=== PATIENT | male | born 1950 | race Two or more races ===

== ENCOUNTER → 2019-12-08 08:02 | Outpatient (BNV) | payer OTHER, SELFPAY | PROVIDERS: PCP Internal Medicine; Visit Provider Internal Medicine | DX: C20 Malignant neoplasm of rectum (principal); C78.7 Secondary malignant neoplasm of liver and intrahepatic bile duct; M25.551 Pain in right hip | CPT/HCPCS: 99212; 99213; 99214; G2211 ==

== ENCOUNTER 2020-08-02 11:34 | Outpatient (REF) | payer MEDICARE, SELFPAY ==
--- NOTE | ~2020-08-02 | XR_ITS ---
EXAMINATION: XR ABDOMEN KUB CLINICAL INDICATION: Left flank pain. COMPARISON: None TECHNIQUE: AP view of the abdomen. FINDINGS: There is scattered stool and gas in the colon without distention. There is no organomegaly. No radiopaque calculi seen overlying the kidneys and bladder. There are several phleboliths in the pelvis. There is mild degenerative spondylosis at L4-L5 disc level. No visible acute fracture or dislocation seen. XR/XR KUB IMPRESSION: Mild constipation. No acute process seen.
== END 2020-08-02 11:35 | disposition home or self-care (01) ==
LOC: HO.XRAY 11:34
PROVIDERS: PCP Internal Medicine; Visit Provider Internal Medicine
DX: R10.9 Unspecified abdominal pain (principal)
CPT/HCPCS: 74018

== ENCOUNTER 2020-10-10 09:52 | Outpatient (REF) | payer MEDICARE, SELFPAY ==
--- NOTE | ~2020-10-10 | CT_ITS ---
EXAMINATION: CT CHEST WITH CONTRAST CT ABDOMEN AND PELVIS WITH CONTRAST CLINICAL INFORMATION: Rectal cancer with metastatic disease to the liver. COMPARISON: CT chest, abdomen and pelvis 09/22/2019. TECHNIQUE: 5 mm thin axial and reformatted 2 mm thin sagittal and coronal images of the chest, abdomen and pelvis were obtained following 100 mL Omnipaque 350. DLP: 1370 mGy-cm FINDINGS: CHEST: The lungs are well expanded without acute pneumonic process. There is a 2 mm nodule along the right minor fissure and the right middle lobe (axial image 349/7), a ground-glass attenuation 4 mm nodule in the left lower lobe (image 445/7), a 2 mm peripheral-based nodule in the right middle lobe (axial image 441/7), a 2 mm nodule in the right lower lobe laterally (image 476/7) and focal atelectatic changes laterally in the lingula. A 1 mm calcified nodule is seen in the right lower lobe posteriorly (axial image 400/7) and a noncalcified 2 mm nodule in the right lower lobe medially (axial image 398/7). The thyroid lobes are symmetrical and normal except for mild heterogeneity in the right lobe, likely small nodules. The central trachea and the bronchi are widely patent. Heart size and the great vessels are normal caliber. There are coronary artery calcifications. No pericardial effusion is seen. A right central venous port tip is in the mid SVC with the hardware along the right anterior chest wall. There is no pleural effusion, thickening or calcifications. The axillae and chest wall appear unremarkable. ABDOMEN AND PELVIS: The liver is mildly attenuated without enlargement. There are several hypodense lesions; a 1.4 cm lesion at the junction of the right hepatic lobe and medial segment left lobe (axial image 13/3), a small hypodense 6 mm lesion along the ligamentum teres on axial image 17/3 which could be focal fatty deposition. Otherwise, no change from the previous exam. There are no radiopaque gallstones or wall thickening. No intrahepatic or extrahepatic ductal dilatation is seen. The visualized spleen, pancreas and adrenal glands are unremarkable. There are normal bilateral symmetrical nephrograms with some punctate nonenhancing probable tiny cysts. No hydronephrosis or radiopaque calculi are seen. The abdominal aorta is of normal caliber. No retroperitoneal lymph nodes or mass is seen. There is scattered stool and gas seen throughout the colon. There is no colonic distention. There is an anastomotic suture line at the rectosigmoid junction with patent lumen. Scattered sigmoid and rest of the colon diverticula but no evidence of diverticulitis. Nonspecific mild thickening of the sigmoid colon is seen with no pericolic fat stranding. The small bowel loops are unremarkable. The appendix is not seen with certainty. The abdominal wall is unremarkable. Imaging through the pelvis reveals an unremarkable urinary bladder. There is no free fluid. No abnormal pelvic or inguinal lymph nodes. No evidence of hernia. Bone windows reveal no lytic or sclerotic process. CT/CT abdomen pelvis w con IMPRESSION: No significant change in the ground-glass attenuation nodule in the left lower lobe. Multiple small 1-2 mm nodules as described above. Mild coronary artery calcifications. Small liver lesions are essentially stable. I do not see any new lesions. Mild attenuation of the liver is stable. No hepatomegaly. No abnormal retroperitoneal or pelvic lymph nodes are seen. Scattered sigmoid and rest of the colon diverticulosis.
--- NOTE | ~2020-10-10 | CT_ITS ---
EXAMINATION: CT SOFT TISSUE NECK WITH CONTRAST CLINICAL INFORMATION: Swelling COMPARISON: None TECHNIQUE: Following the intravenous administration of 100 mL of Omnipaque 350 intravenous contrast, helical imaging was performed in the axial plane with generation of coronal and sagittal reformatted images. This CT examination was performed using dose optimization techniques as appropriate, variously including the following: *Automated exposure control *Adjustment of mA and/or kV according to patient size (this includes techniques or standardized protocols for targeted exams where dose is matched to indication/reason for exam; i.e. extremities or head) *Use of iterative reconstruction technique DLP: 1370 mGy-cm FINDINGS: There are small shotty lymph nodes seen in the anterior neck largest left carotid space lymph node measures 1.0 x 0.7 cm, axial image 62/3. The parotid glands are homogeneous in attenuation. The submandibular glands are normal. No contour abnormality or pathologic enhancement is seen within the oral cavity or pharyngeal mucosal space. There is mild asymmetric thickening of left pharyngeal wall with slight hypodensity, likely fatty deposition, on axial image 59 through 64/3. The laryngeal structures are normal. The parapharyngeal fat is preserved. The carotid sheath vasculature opacify normally. No extra mucosal soft tissue mass or fluid collection is seen. No retropharyngeal fluid collection is seen. There are punctate cysts or hypodense nodules in the right thyroid lobe. The superior mediastinum is unremarkable. The lung apices are clear. There is diffuse mucoperiosteal thickening bilateral maxillary and scanty right sphenoid sinuses. The drainage catheters are widely patent. Bilateral ethmoid, left sphenoid and bilateral frontal sinuses are well aerated. The temporomandibular joints are normal. No periapical disease is identified. No osseous abnormalities are seen. There is a punctate hypodensity in the right centrum semiovale likely a small lacunar infarct. It is best visualized on axial image 1/3. Normal intravascular enhancement seen intracranially. CT/CT soft tissue neck w con IMPRESSION: Mild asymmetric left lateral pharyngeal wall thickening with hypodensity. ?Edema, small serous collection or nodule. No mass effect. Airway is widely patent. Benign lymph nodes in the neck. Hypodense nodule right thyroid lobe likely cyst or nodule. Bilateral chronic maxillary and right sphenoid sinus inflammatory changes.
[2020-10-10] MEDS: iohexoL 350 MG/ML 100 ML INFUS..BTL IV (12:46)
== END 2020-10-10 09:53 | disposition home or self-care (01) ==
LOC: HO.CT 09:52
PROVIDERS: Visit Provider Internal Medicine
DX: C20 Malignant neoplasm of rectum (principal); C78.7 Secondary malignant neoplasm of liver and intrahepatic bile duct; R22.1 Localized swelling, mass and lump, neck
CPT/HCPCS: 70491; 71260; 74177; Q9967

== ENCOUNTER 2021-01-13 11:34 | Emergency (ER) | payer MEDICARE, SELFPAY ==
--- NOTE | ~2021-01-13 | CT_ITS ---
EXAMINATION: CT CHEST WITH CONTRAST CLINICAL INFORMATION: Neck swelling and pain. COMPARISON: CT chest dated from 10/10/2020. TECHNIQUE: Multidetector volumetric CT imaging of the chest was obtained after the administration of 100 mL of Omnipaque 350 intravenous contrast without immediate adverse reactions. Axial MIP volume rendering provided. Sagittal and coronal reformatted images were obtained. This CT examination was performed using dose optimization techniques as appropriate, variously including the following: *Automated exposure control *Adjustment of mA and/or kV according to patient size (this includes techniques or standardized protocols for targeted exams where dose is matched to indication/reason for exam; i.e. extremities or head) *Use of iterative reconstruction technique DLP: 412 mGy-cm FINDINGS: LUNGS: A 5 mm groundglass attenuating nodule in the left lower lobe (11: 3:30) is unchanged. A few other micronodules are also unchanged, for example a 2 mm right apical nodule (11:131), a 2 mm right upper lobe nodule (11:143) and a punctate nodule in the left upper lobe (11:151). No new pulmonary nodules. Mild biapical pleural thickening/scarring. Linear opacities dependently in the lower lobes are likely subsegmental atelectasis or parenchymal scarring. No focal airspace disease. The central airways are patent. MEDIASTINUM: Right-sided chest port terminating at the level of the cavoatrial junction. Normal heart size. Coronary calcifications and atherosclerotic disease of the thoracic aorta which is of normal diameter. No mediastinal or hilar lymphadenopathy. Normal appearance of the thyroid gland. PLEURA: There is no pleural effusion. No pleural mass or thickening. AXILLA: No lymphadenopathy. UPPER ABDOMEN: Redemonstration of several hepatic lesions including a 1.8 cm ill-defined hypoattenuating lesion in the right hepatic lobe (previously measuring 1.4 cm), a heterogeneous lesion with a central hyperattenuating component in the hepatic dome measuring approximately 2.3 cm (image 51 of series 9) previously 2.1 cm; and an adjacent hypodense and ill-defined lesion measuring approximately 2.1 cm (previously 1.6 cm). OSSEOUS STRUCTURES: No acute or aggressive osseous abnormalities. Low thoracic spondylosis. CT/CT chest w con IMPRESSION: 1. A 5 mm groundglass nodule in the left lower lobe is unchanged. A few other up to 2 mm pulmonary nodules are also stable. If history of prior cancer, follow-up per clinical guidelines with a short-term follow-up. 2. Ill-defined liver lesions are increased in size since October. These are indeterminate and differentials are brought including metastatic disease or abscesses. Correlate clinically. This result was discussed with Akanksha Arce APRN at 01/13/2021 5:50 PM and it was ascertained that the content and urgency of the report was understood at the time of direct communication.
--- NOTE | ~2021-01-13 | CT_ITS ---
EXAMINATION: CT SOFT TISSUE NECK WITH CONTRAST CLINICAL INFORMATION: Right-sided neck swelling and pain. COMPARISON: CT soft tissues of neck 10/10/2020 TECHNIQUE: Following the intravenous administration of 100 mL of Omnipaque 350 intravenous contrast, helical imaging was performed in the axial plane with generation of coronal and sagittal reformatted images. This CT examination was performed using dose optimization techniques as appropriate, variously including the following: *Automated exposure control *Adjustment of mA and/or kV according to patient size (this includes techniques or standardized protocols for targeted exams where dose is matched to indication/reason for exam; i.e. extremities or head) *Use of iterative reconstruction technique DLP: 825 mGy-cm FINDINGS: No cervical adenopathy is identified. The parotid glands are homogeneous in attenuation. The submandibular glands are normal. No contour abnormality or pathologic enhancement is seen within the oral cavity or pharyngeal mucosal space. The laryngeal structures are normal. The parapharyngeal fat is preserved. The carotid sheath vasculature opacify normally. No extra mucosal soft tissue mass or fluid collection is seen. No retropharyngeal fluid collection is seen. The thyroid gland is normal. . There is lobular mucosal thickening partially opacifying the inferior right maxillary sinus and right sphenoid sinus. Small polyp or retention cyst at the medial and inferior wall the left maxillary sinus. Mastoid air cells and middle ear cavities are normally aerated. The temporomandibular joints are normal. . Mild degenerative spondylosis of cervical spine. No acute osseous abnormality.. The imaged portions of the brain parenchyma are unremarkable. Right IJ catheter tip in superior vena cava. Lung apices normally aerated. CT/CT soft tissue neck w con IMPRESSION: 1. No acute abdomen only CT of neck. No focal fluid collection. No mass or significant lymphadenopathy. 2. Sinus mucosal disease in the right maxillary sinus and sphenoid sinus. Retention cyst or polyp in left maxillary sinus. 3. Right IJ catheter tip in superior vena cava.
[2021-01-13 11:37] VITALS: BP 152/99; PULSE 61; RESP 19; TEMP 36.6; O2SAT 99; BMI 29.2
--- NOTE | 2021-01-13 11:47 | ED.GENADULT ---
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 More swelling/pain if patient does activity such as heavy lifting or with leaning forward. No shortness of breath, difficulty swallowing or breathing. No sore throat or hoarse voice. He has history of hypertension, hyperlipidemia, depression, diabetes, GERD, rectal adenocarcinoma status post resection, on oral chemotherapy, chronic pain on oxycodone, right port DCT on xarelto 20mg daily. Of note the patient had similar complaints in October of [address] chest/neck which showed stable disease with no recurrence or new disease and mild pharyngeal edema but no mass or any other acute finding. Sent from Dr Cage office for CT chest/neck with IV contrast. Related Data Home Medications Medication Instructions Recorded Confirmed lisinopril 20 mg tablet 20 mg PO BID 12/08/19 01/13/21 Previous Rx's Medication Instructions Recorded metoprolol succinate 50 mg 50 mg PO DAILY #90 tab 05/17/20 tablet,extended release 24 hr insulin aspart U-100 100 unit/mL 10 unit (0.1 mL) SUBCUT TID #15 ml 06/16/20 (3 mL) subcutaneous pen (Novolog Flexpen U-100 Insulin aspart) clotrimazole-betamethasone 1 1 appl TOPICAL BID #45 g 10/14/20 %-0.05 % topical cream diphenhydramine HCl 25 mg tablet 25 mg PO DAILY PRN #50 tab 10/31/20 (Banophen) tramadol 50 mg tablet 50 mg PO BEDTIME PRN #30 tab 10/31/20 insulin glargine 100 unit/mL (3 25 unit (0.25 mL) SUBCUT BEDTIME 11/03/20 mL) subcutaneous pen (Lantus #24 ml Solostar U-100 Insulin) rivaroxaban 20 mg tablet (Xarelto) 10 mg PO DAILY #30 tab 11/18/20 blood sugar diagnostic (FreeStyle #100 ea 12/08/20 Lite Strips) blood-glucose meter (FreeStyle #1 ea 12/08/20 Lite Meter) lancets 28 gauge (FreeStyle #100 ea 12/08/20 Lancets) oxycodone 5 mg tablet 5 mg PO BID PRN #30 tab 12/22/20 temazepam 15 mg capsule 1 cap PO BEDTIME #30 cap 12/22/20 capecitabine 500 mg tablet (Xeloda) 1,500 mg PO BID #84 tab 12/23/20 Allergies Allergy/AdvReac Type Severity Reaction Status Date / Time chlorhexidine [CHLORHEXIDINE] Allergy Intermediate RASH,HIVES Verified 01/13/21 10:55 latex Allergy Unknown Verified 01/13/21 10:55 madical tape AdvReac Severe rash Uncoded 01/13/21 10:55 Review of Systems Review of Systems: Yes all other systems are reviewed and are negative Constitutional: Constitutional: Reports no additional constitutional complaints, Denies body ache(s), Denies chills, Denies fever(s), Denies headache(s) and Denies weakness Eyes: Eyes: Reports no additional eye complaints and Denies change in vision ENT: Reports system reviewed and no additional complaints, except as documented, Denies dizziness, Denies headache(s), Denies nasal congestion, Denies nasal discharge and Denies neck pain Cardiovascular: Cardiovascular: Reports no additional cardiovascular complaints, Denies chest pain, Denies leg edema and Denies dyspnea Respiratory: Respiratory: Reports no additional respiratory complaints, Denies cough and Denies dyspnea Gastrointestinal: Gastrointestinal: Reports no additional gastrointestinal complaints, Denies abdominal pain, Denies diarrhea, Denies nausea and Denies vomiting Genitourinary: Genitourinary: Denies urinary incontinence Musculoskeletal: Musculoskeletal: Reports no additional musculoskeletal complaints, Denies back pain, Denies arthralgias, Denies joint swelling, Denies neck pain, Denies numbness and Denies tingling Integumentary/Breasts: Skin/Breast: Reports system reviewed and no additional complaints, except as docu and Denies rash Neurologic: Denies Abnormal speech present, Denies dizziness, Denies headache(s), Denies numbness, Denies tingling and Denies weakness PMFSH Past Medical History Attestation statement: The following information was validated with the patient. 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 Mother Mouth cancer Sister Breast cancer Social History Social History Housing: Apartment Alcohol intake: current Alcohol intake frequency: a few times a week Alcohol type: beer Patient Tobacco Use Status: Never used Tobacco Advance Directives: No Advance Directives Information Provided: No service: No Current occupational status: disabled Physical Exam Vital Signs: Vital Signs: Last Vital Signs Temp 98.2 F 01/13/21 18:00 Pulse 56 01/13/21 18:00 Resp 14 01/13/21 18:00 BP 158/90 H 01/13/21 18:00 Pulse Ox 98 01/13/21 18:00 Body Mass Index 29.2 Const: General: cooperative, healthy appearing, comfortable and no acute distress Orientation/consciousness: patient oriented x3 Limitations: no limitations HENMT: Head: Yes normal to inspection Ears: hearing grossly normal bilaterally and TM's normal bilaterally General nose exam: Normal external nose present Face and sinus: Yes normal facial exam Mouth: Normal oral and palatal mucosa present Throat: Yes posterior oropharynx normal Eyes: General: appearance normal, both eyes and all related structures Pupils: Equal, round and reactive pupils present Neck: Other: Right-sided soft tissue neck swelling with no tenderness. Full range of motion of neck. No meningeal signs or lymphadenopathy Neck: Yes normal visual inspection Neck images: 1. Mild swelling with no tenderness 2. Mild swelling with no tenderness. No thrill or bruit Chest: Chest palpation & inspection: normal inspection of the chest Chest/axillae images: 1. Mild swelling with no tenderness Distal axillary, radial and ulnar pulses palpated Resp: Effort & Inspection: normal respiratory effort Auscultation: clear to auscultation bilaterally Cardio: Rate: regular rate Rhythm: regular rhythm Peripheral pulses: Peripheral pulses 2+ throughout GI: Inspection: Yes normal to inspection Palpation (GI): Soft to palpation and nontender Auscultation: normal bowel sounds Back/Spine/Pelvis: Thoracic/Lumbar Spine: thoracic and lumbar spine normal to inspection Skin: General skin exam: no rashes or lesions noted Neuro: General: patient oriented x3, no focal motor deficits and normal sensation to monofilament Cranial nerves: Yes Equal, round and reactive pupils present Cognition (Neuro): normal cognition Speech: No Abnormal speech present Gait exam (Neuro): Normal gait present Motor exam (neuro): 5/5 motor strength present throughout Extrem: General: Yes normal to inspection, Yes no pedal edema and Yes no calf tenderness Course Course Course Narrative: 1200-I spoke to Dr Cage myself. She tells me she is concerned for SVC syndrome and would like the patient to have a CT chest/CT neck with IV contrast. 70-year-old male here with worsening right neck/axillary swelling over the last 2 weeks. Sent to r/o SVC syndrome. Currently on xarelto, oral chemotherapy. 1819-CT scan at chest and neck show 1.? A 5 mm groundglass nodule in the left lower lobe is unchanged. A few other up to 2 mm pulmonary nodules are also stable. If history of prior cancer, follow-up per clinical guidelines with a short-term follow-up. ? 2.? Ill-defined liver lesions are increased in size since October. These are indeterminate and differentials are brought including metastatic disease or abscesses. Correlate clinically. 1. No acute abdomen only CT of neck. No focal fluid collection. No mass or significant lymphadenopathy. 2. Sinus mucosal disease in the right maxillary sinus and sphenoid sinus. Retention cyst or polyp in left maxillary sinus. 3. Right IJ catheter tip in superior vena cava. ? No evidence of SVC syndrome. I spoke to Dr. Sebastian from radiology. The patient's oncologist was updated. Plan for discharge home. Reviewed worrisome signs and symptoms. Comfortable plan for discharge home Patient was informed of liver lesions and pulmonary nodule. Medical Decision Making Medical Records Medical records reviewed: Yes I reviewed the patient's medical records. Lab Data Lab results reviewed: Yes I reviewed the patient's lab results. Result diagrams: 01/13/21 13:26 01/13/21 16:03 Labs: Lab Results 01/13/21 01/13/21 01/13/21 Range/Units 13:26 13:26 15:43 WBC 6.6 (4.8-10.8) X10*3/uL RBC 4.72 (4.60-5.80) X10*6/uL Hgb 17.1 (14.0-18.0) g/dl Hct 49.4 (42.0-52.0) % MCV 104.7 H (80.0-98.0) fL MCH 36.2 H (27.0-33.0) pg MCHC 34.6 (31.0-36.0) g/dl RDW 12.7 (11.0-16.0) % Plt Count 202 (160-400) X10*3/uL MPV 9.3 L (9.4-12.4) fL Immature Gran % (Auto) 0.3 (0.0-0.4) % Neut % (Auto) 63.8 (45-73) % Lymph % (Auto) 19.5 L (20-40) % [place] % (Auto) 7.9 (2-11) % Eos % (Auto) 7.1 H (0-4) % Baso % (Auto) 1.4 (0-2) % Lymph # (Auto) 1.3 (1.2-4.9) X10*3/uL [place] # (Auto) 0.5 (0.1-1.2) X10*3/uL Eos # (Auto) 0.5 H (0.0-0.4) X10*3/uL Baso # (Auto) 0.1 (0.0-0.2) X10*3/uL Abs Immat Gran (auto) 0.02 (0.00-0.03) X10*3/uL Absolute Neuts (auto) 4.2 (2.0-8.3) x10*3/uL Absolute Nucleated RBC 0.000 (0.0-0.012) X10*3/uL Nucleated RBC % (auto) 0.0 (0.0-0.2) /100WBC PT 20.7 H (9.9-13.0) SEC INR 1.8 H (0.9-1.1) Sodium (135-145) mmol/L Potassium (3.3-5.1) mmol/L Chloride (96-108) mmol/L Carbon Dioxide (22-29) mmol/L Anion Gap (12-20) BUN (9-16) mg/dL Creatinine (0.5-1.4) mg/dL Estim Creat Clear Calc Estimated GFR POC Glucose 108 (60-115) mg/dL Random Glucose (60-115) mg/dL Calcium (8.4-10.2) mg/dL Total Bilirubin (0.0-1.0) mg/dL Direct Bilirubin (0.0-0.5) mg/dL AST (5-37) U/L ALT (0-40) U/L Alkaline Phosphatase (39-117) U/L Total Protein (6.5-8.0) g/dL Albumin (3.5-5.0) g/dL 01/13/21 Range/Units 16:03 WBC (4.8-10.8) X10*3/uL RBC (4.60-5.80) X10*6/uL Hgb (14.0-18.0) g/dl Hct (42.0-52.0) % MCV (80.0-98.0) fL MCH (27.0-33.0) pg MCHC (31.0-36.0) g/dl RDW (11.0-16.0) % Plt Count (160-400) X10*3/uL MPV (9.4-12.4) fL Immature Gran % (Auto) (0.0-0.4) % Neut % (Auto) (45-73) % Lymph % (Auto) (20-40) % [place] % (Auto) (2-11) % Eos % (Auto) (0-4) % Baso % (Auto) (0-2) % Lymph # (Auto) (1.2-4.9) X10*3/uL [place] # (Auto) (0.1-1.2) X10*3/uL Eos # (Auto) (0.0-0.4) X10*3/uL Baso # (Auto) (0.0-0.2) X10*3/uL Abs Immat Gran (auto) (0.00-0.03) X10*3/uL Absolute Neuts (auto) (2.0-8.3) x10*3/uL Absolute Nucleated RBC (0.0-0.012) X10*3/uL Nucleated RBC % (auto) (0.0-0.2) /100WBC PT (9.9-13.0) SEC INR (0.9-1.1) Sodium 137 (135-145) mmol/L Potassium 4.0 (3.3-5.1) mmol/L Chloride 103 (96-108) mmol/L Carbon Dioxide 28 (22-29) mmol/L Anion Gap 10 L (12-20) BUN 10 (9-16) mg/dL Creatinine 0.92 (0.5-1.4) mg/dL Estim Creat Clear Calc 77.3 Estimated GFR > 60 POC Glucose (60-115) mg/dL Random Glucose 126 H (60-115) mg/dL Calcium 8.6 (8.4-10.2) mg/dL Total Bilirubin 1.2 H (0.0-1.0) mg/dL Direct Bilirubin 0.3 (0.0-0.5) mg/dL AST 20 (5-37) U/L ALT 16 (0-40) U/L Alkaline Phosphatase 66 (39-117) U/L Total Protein 6.7 (6.5-8.0) g/dL Albumin 3.9 (3.5-5.0) g/dL Imaging Data ct neck: Attestation: I personally reviewed and interpreted this imaging study as follows: Radiologist's impression: 1. No acute abdomen only CT of neck. No focal fluid collection. No mass or significant lymphadenopathy. 2. Sinus mucosal disease in the right maxillary sinus and sphenoid sinus. Retention cyst or polyp in left maxillary sinus. 3. Right IJ catheter tip in superior vena cava. ? ct chest: Attestation: I personally reviewed and interpreted this imaging study as follows: Radiologist's impression: IMPRESSION: 1.? A 5 mm groundglass nodule in the left lower lobe is unchanged. A few other up to 2 mm pulmonary nodules are also stable. If history of prior cancer, follow-up per clinical guidelines with a short-term follow-up. ? 2.? Ill-defined liver lesions are increased in size since October. These are indeterminate and differentials are brought including metastatic disease or abscesses. Correlate clinically. ? Discharge Plan Discharge Clinical Impression: Acute neck pain Patient Disposition: Home, Self-Care Instructions: Chronic Neck Pain (DC) Additional Instructions: follow-up with your oncologist Your CT scan looks normal with the exception of a lung nodule and lesions on your liver Prescriptions: No Action insulin aspart U-100 [Novolog Flexpen U-100 Insulin] 100 unit/mL (3 mL) insulin pen 10 unit subcut TID Qty: 15 RF: 0 Lantus Solostar U-100 Insulin 100 unit/mL (3 mL) insulin pen 25 unit subcut BEDTIME Qty: 24 RF: 3 (DME) FreeStyle Lite Strips Strip See Rx Instructions .Route Qty: 100 RF: 3 (DME) blood-glucose meter [FreeStyle Lite Meter] Kit See Rx Instructions .Route Qty: 1 RF: 0 (DME) lancets [FreeStyle Lancets] 28 gauge misc See Rx Instructions .Route Qty: 100 RF: 3 lisinopril 20 mg Tablet 20 mg PO BID RF: 0 metoprolol succinate 50 mg Tablet Extended Release 24 Hr 50 mg PO DAILY Qty: 90 RF: 3 clotrimazole-betamethasone 1-0.05 % Cream 1 appl TOPICAL BID Qty: 45 RF: 4 tramadol 50 mg Tablet 50 mg PO BEDTIME PRN (Reason: Pain) Qty: 30 RF: 0 diphenhydramine HCl [Banophen] 25 mg Tablet 25 mg PO DAILY PRN (Reason: Insomnia) Qty: 50 RF: 4 Xarelto 20 mg Tablet 10 mg PO DAILY Qty: 30 RF: 0 oxycodone 5 mg Tablet 5 mg PO BID PRN (Reason: Pain) Qty: 30 RF: 0 temazepam 15 mg capsule 1 cap PO BEDTIME Qty: 30 RF: 0 capecitabine [Xeloda] 500 mg tablet 1,500 mg PO BID Qty: 84 RF: 0 Referrals: Lea Cage MD [Physician] - 2 days Interventions: ED Discharge Assessment Last Done: 01/13/21 18:31 Discharge Date/Time: 01/13/21 18:32 Print Language: Tajik
[2021-01-13] MEDS: 0.9 % Sodium Chloride 1,000 ML 50 ML IVCONT (13:27)
[2021-01-13 13:33] LABS: MANUAL DIFF FLAG NO
[2021-01-13 13:39] LABS: Basophils Absolute Auto 0.1 X10*3/uL (0.0-0.2); Basophils Percent Auto 1.4 % (0-2); Eosinophils Absolute Auto 0.5 X10*3/uL (0.0-0.4); Eosinophils Percent Auto 7.1 % (0-4); Hematocrit 49.4 % (42.0-52.0); Hemoglobin 17.1 g/dl (14.0-18.0); Imm Gran Abs Auto 0.02 X10*3/uL (0.00-0.03); Imm Gran Pct Auto 0.3 % (0.0-0.4); Lymphocytes Absolute Auto 1.3 X10*3/uL (1.2-4.9); Lymphocytes Percent Auto 19.5 % (20-40); Mean Corpuscular HGB Conc 34.6 g/dl (31.0-36.0); Mean Corpuscular Hemoglobin 36.2 pg (27.0-33.0); Mean Corpuscular Volume 104.7 fL (80.0-98.0); Mean Platelet Volume 9.3 fL (9.4-12.4); Monocytes Absolute Auto 0.5 X10*3/uL (0.1-1.2); Monocytes Percent Auto 7.9 % (2-11); Neutrophils Absolute Auto 4.2 x10*3/uL (2.0-8.3); Neutrophils Percent Auto 63.8 % (45-73); Platelet Count 202 X10*3/uL (160-400); Red Blood Count 4.72 X10*6/uL (4.60-5.80); Red Cell Distribution Width 12.7 % (11.0-16.0); White Blood Count 6.6 X10*3/uL (4.8-10.8)
[2021-01-13 13:42] LABS: INTERNATIONAL NORM RATIO 1.8 (0.9-1.1); Prothrombin Time 20.7 SEC (9.9-13.0)
[2021-01-13 14:00] VITALS: BP 141/79; PULSE 64; RESP 16; O2SAT 98
[2021-01-13 15:51] LABS: Glucose, Whole Blood 108 mg/dL (60-115)
[2021-01-13 16:00] VITALS: BP 153/86; PULSE 60; RESP 16; O2SAT 97
[2021-01-13 16:31] LABS: Alanine Aminotransferase 16 U/L (0-40); Albumin Level 3.9 g/dL (3.5-5.0); Alkaline Phosphatase 66 U/L (39-117); Anion Gap 10 (12-20); Aspartate Amino Transferase 20 U/L (5-37); Bilirubin Direct 0.3 mg/dL (0.0-0.5); Bilirubin Total 1.2 mg/dL (0.0-1.0); Blood Urea Nitrogen 10 mg/dL (9-16); Calcium 8.6 mg/dL (8.4-10.2); Carbon Dioxide 28 mmol/L (22-29); Chloride 103 mmol/L (96-108); Creatinine Clr Calc Pharmacy 77.3; Estimated Glomerular Filt Rate > 60; Glucose Random 126 mg/dL (60-115); Sodium 137 mmol/L (135-145); Total Protein 6.7 g/dL (6.5-8.0)
[2021-01-13] MEDS: iohexoL 350 MG/ML 100 ML INFUS..BTL IV (17:21)
[2021-01-13 18:00] VITALS: BP 158/90; PULSE 56; RESP 14; TEMP 36.8; O2SAT 98
== END 2021-01-13 18:32 | disposition home or self-care (01) ==
PROVIDERS: Nurse Practitioner Family; Emergency Provider Emergency Medicine Emergency Medical Services; PCP Internal Medicine
DX: M54.2 Cervicalgia (principal); I10 Essential (primary) hypertension; E11.9 Type 2 diabetes mellitus without complications; C20 Malignant neoplasm of rectum; G89.29 Other chronic pain; Z86.73 Personal history of transient ischemic attack (TIA), and cerebral infarction without residual deficits; Z79.01 Long term (current) use of anticoagulants; Z79.4 Long term (current) use of insulin; Z79.891 Long term (current) use of opiate analgesic; Z79.899 Other long term (current) drug therapy
CPT/HCPCS: 36415; 70491; 71260; 80048; 80076; 82947; 85025; 85610; 96360; 96361; 99284; 99285; Q9967

== ENCOUNTER 2021-02-27 14:26 | Outpatient (REF) | payer MEDICARE, SELFPAY ==
--- NOTE | ~2021-02-27 | FL_ITS ---
EXAMINATION: XR PORT INJECTION WITH RADIOLOGICAL SUPERVISION AND INTERPRETATION CLINICAL INFORMATION: Blood not aspirating. COMPARISON: None TECHNIQUE: Port injection. FINDINGS: A Hubner needle was left in place and appears in good position. Using sterile technique, the port was injected through the indwelling needle with a total of 10 mL of Omnipaque 300 contrast media. The port is seen to fill normally and flow is present pushing forward however, there was no flow of blood on aspiration. There is noted to be a fibrin sheath about the tip of the port catheter. The port was then instilled with Hep-Lock solution. FL/FL cva device check w fluoro IMPRESSION: Fibrin sheath at end of port catheter. Fluoroscopy time 0.5 minutes DAP: 0.479 Gy-cm2
== END 2021-02-27 14:27 | disposition home or self-care (01) ==
LOC: HO.XRAY 14:26
PROVIDERS: Visit Provider Internal Medicine
DX: C18.9 Malignant neoplasm of colon, unspecified (principal)
CPT/HCPCS: 36598

== ENCOUNTER 2021-05-10 08:30 | Outpatient (REF) | payer MEDICARE, SELFPAY ==
--- NOTE | ~2021-05-10 | CT_ITS ---
EXAMINATION: CT CHEST, ABDOMEN AND PELVIS WITH CONTRAST CLINICAL INFORMATION: Rectal cancer with hepatic metastatic disease, follow-up. COMPARISON: 01/13/[address] scan, CT scan of the chest, abdomen and pelvis dated 01/13/2021. TECHNIQUE: Multidetector volumetric imaging was performed of the chest, abdomen and pelvis following IV administration of 85 mL of Omnipaque 300 intravenous contrast. Sagittal and coronal reformatted images were obtained on the technologist's workstation. This CT examination was performed using dose optimization techniques as appropriate, variously including the following: *Automated exposure control *Adjustment of mA and/or kV according to patient size (this includes techniques or standardized protocols for targeted exams where dose is matched to indication/reason for exam; i.e. extremities or head) DLP: 504 mGy-cm FINDINGS: CHEST: LUNGS/PLEURA/AIRWAYS: Minimal biapical scarring is seen. A few scattered nodules are again seen without significant change. A sales representative womens health nodule anterolaterally in the left lower lobe measures 0.5 cm (image 339, series 7). A nodule/lymph node along the minor fissure on the right measures 0.3 cm (image 252, series 7). No significant new pulmonary nodules are seen. There are no pleural effusions. The airways are patent. MEDIASTINUM: The visualized thyroid gland is unremarkable. The thoracic aorta is unremarkable. Mild coronary artery calcifications. No pericardial effusion. CHEST LYMPH NODES: No mediastinal, hilar or axillary lymphadenopathy. SOFT TISSUES: Unremarkable. ABDOMEN/PELVIS: LIVER, GALLBLADDER, AND BILIARY TREE: An irregular lesion superiorly in segment 4A is again seen measuring 3.2 x 2.6 x 2.9 cm (previously 2.6 x 2.1 x 2.0 cm), image 11, series 3; image 44, series 4. A second, less well-defined lesion, anterior and superior to the first measures 2.3 x 2.0 x 1.3 cm (previously 1.8 x 1.7 x 1.5 cm), image 12, series 3; image 37, series 4. A third lesion inferolaterally in segment 6 measures 2.8 x 2.1 x 1.8 cm (previously 1.8 x 1.4 x 2.0 cm). PANCREAS: Unremarkable. SPLEEN: Unremarkable. ADRENAL GLANDS: Unremarkable. KIDNEYS AND URETERS: Small low-attenuation foci bilaterally are too small adequately characterize without significant change. No nephrolithiasis or hydronephrosis. BLADDER: Unremarkable. GASTROINTESTINAL TRACT: The stomach, small bowel and appendix are unremarkable. The colorectal anastomosis in the pelvis is intact without surrounding abnormality. The remainder the colon is unremarkable. LYMPH NODES: No lymphadenopathy. VASCULAR: Unremarkable. PELVIC VISCERA: Unremarkable. MUSCULOSKELETAL: Unremarkable. SOFT TISSUES: Small fat-containing left inguinal hernia without significant change. CT/CT chest w con IMPRESSION: 1. Mild interval increase in size of the hepatic lesions as detailed above consistent with mild interval progression of disease. No evidence for disease recurrence/progression in the remainder of the chest, abdomen and pelvis. CT follow-up is recommended as per protocol. 2. Several incidental findings detailed above without significant interval change.
--- NOTE | ~2021-05-10 | CT_ITS ---
EXAMINATION: CT CHEST, ABDOMEN AND PELVIS WITH CONTRAST CLINICAL INFORMATION: Rectal cancer with hepatic metastatic disease, follow-up. COMPARISON: 01/13/[address] scan, CT scan of the chest, abdomen and pelvis dated 01/13/2021. TECHNIQUE: Multidetector volumetric imaging was performed of the chest, abdomen and pelvis following IV administration of 85 mL of Omnipaque 300 intravenous contrast. Sagittal and coronal reformatted images were obtained on the technologist's workstation. This CT examination was performed using dose optimization techniques as appropriate, variously including the following: *Automated exposure control *Adjustment of mA and/or kV according to patient size (this includes techniques or standardized protocols for targeted exams where dose is matched to indication/reason for exam; i.e. extremities or head) DLP: 504 mGy-cm FINDINGS: CHEST: LUNGS/PLEURA/AIRWAYS: Minimal biapical scarring is seen. A few scattered nodules are again seen without significant change. A retail representative nodule anterolaterally in the left lower lobe measures 0.5 cm (image 339, series 7). A nodule/lymph node along the minor fissure on the right measures 0.3 cm (image 252, series 7). No significant new pulmonary nodules are seen. There are no pleural effusions. The airways are patent. MEDIASTINUM: The visualized thyroid gland is unremarkable. The thoracic aorta is unremarkable. Mild coronary artery calcifications. No pericardial effusion. CHEST LYMPH NODES: No mediastinal, hilar or axillary lymphadenopathy. SOFT TISSUES: Unremarkable. ABDOMEN/PELVIS: LIVER, GALLBLADDER, AND BILIARY TREE: An irregular lesion superiorly in segment 4A is again seen measuring 3.2 x 2.6 x 2.9 cm (previously 2.6 x 2.1 x 2.0 cm), image 11, series 3; image 44, series 4. A second, less well-defined lesion, anterior and superior to the first measures 2.3 x 2.0 x 1.3 cm (previously 1.8 x 1.7 x 1.5 cm), image 12, series 3; image 37, series 4. A third lesion inferolaterally in segment 6 measures 2.8 x 2.1 x 1.8 cm (previously 1.8 x 1.4 x 2.0 cm). PANCREAS: Unremarkable. SPLEEN: Unremarkable. ADRENAL GLANDS: Unremarkable. KIDNEYS AND URETERS: Small low-attenuation foci bilaterally are too small adequately characterize without significant change. No nephrolithiasis or hydronephrosis. BLADDER: Unremarkable. GASTROINTESTINAL TRACT: The stomach, small bowel and appendix are unremarkable. The colorectal anastomosis in the pelvis is intact without surrounding abnormality. The remainder the colon is unremarkable. LYMPH NODES: No lymphadenopathy. VASCULAR: Unremarkable. PELVIC VISCERA: Unremarkable. MUSCULOSKELETAL: Unremarkable. SOFT TISSUES: Small fat-containing left inguinal hernia without significant change. CT/CT abdomen pelvis w con IMPRESSION: 1. Mild interval increase in size of the hepatic lesions as detailed above consistent with mild interval progression of disease. No evidence for disease recurrence/progression in the remainder of the chest, abdomen and pelvis. CT follow-up is recommended as per protocol. 2. Several incidental findings detailed above without significant interval change.
[2021-05-10] MEDS: iohexoL 350 MG/ML 100 ML INFUS..BTL IV (09:38)
== END 2021-05-10 08:31 | disposition home or self-care (01) ==
LOC: HO.CT 08:30
PROVIDERS: Visit Provider Internal Medicine
DX: C20 Malignant neoplasm of rectum (principal); C78.7 Secondary malignant neoplasm of liver and intrahepatic bile duct
CPT/HCPCS: 71260; 74177; Q9967

== ENCOUNTER 2021-06-21 10:42 | Emergency (ER) | payer MEDICARE, SELFPAY ==
--- NOTE | ~2021-06-21 | XR_ITS ---
EXAMINATION: XR CHEST CLINICAL INFORMATION: Cough, chest pain. COMPARISON: 04/04/2018 chest radiographs. TECHNIQUE: Frontal view of the chest was obtained. FINDINGS: Support devices: Right-sided central venous port with tip terminating in the superior vena cava. No significant abnormality is noted involving the heart, lungs, mediastinum, bony thorax or soft tissues. XR/XR chest 1V IMPRESSION: No acute cardiopulmonary process.
--- NOTE | 2021-06-21 10:53 | ECG_ITS ---
Test Reason : sob Blood Pressure : / mmHG Vent. Rate : 068 BPM Atrial Rate : 068 BPM P-R Int : 136 ms QRS Dur : 094 ms QT Int : 410 ms P-R-T Axes : 079 065 081 degrees QTc Int : 435 ms Normal sinus rhythm Normal ECG When compared to the previous EKG of Vent. rate has decreased Referred By: Generic ED Physician Electronically Signed By:BRANDY DANG MD
[2021-06-21 10:54] VITALS: BP 117/61; PULSE 74; RESP 17; TEMP 36.4; O2SAT 97; BMI 26.0
--- NOTE | 2021-06-21 11:25 | ED_ITS ---
HPI - General Adult General Chief complaint: Dyspnea <LEIGH Diaz Last Filed: 06/21/21 12:51> Stated complaint: flu symptons hx of ca <LEIGH Diaz Last Filed: 06/21/21 12:51> Time Seen by Provider: 06/21/21 11:25 <LEIGH Diaz Last Filed: 06/21/21 12:51> Source: patient, family (son) and retirement assistant <LEIGH Diaz Last Filed: 06/21/21 12:51> Mode of arrival: ambulatory <LEIGH Diaz Last Filed: 06/21/21 12:51> Limitations: language barrier <LEIGH Diaz Last Filed: 06/21/21 12:51> History of Present Illness HPI narrative: Patient is a 71 year old male presenting to the emergency department today with a cough and feeling generally unwell. Patient's son states that the patient has a history of colon cancer and he is on chemo medication for it. Patient's son states that the patient was around multiple influenza positive individuals recently. Patient denies any dizziness, lightheadedness, abdominal pain, nausea, vomiting, fever, chills, blurry vision, double vision, loss of vision, chest pain, difficulty breathing, shortness of breath, back pain, night sweats, pain with urination, increased urinary frequency, increased urinary urgency, blood in his urine or stool, syncope or a near syncopal episode, recent trauma or falls, bowel incontinence, bladder incontinence, bowel retention, bladder retention, or any other complaints at this time. <LEIGH Diaz - Last Filed: 06/21/21 12:51> Onset (ago): day(s) <LEIGH Diaz Last Filed: 06/21/21 12:51> Relieving factors: none <LEIGH Diaz Last Filed: 06/21/21 12:51> Exacerbating factors: none <LEIGH Diaz Last Filed: 06/21/21 12:51> Associated symptoms: cough <LEIGH Diaz Last Filed: 06/21/21 12:51> Treatments prior to arrival: none <LEIGH Diaz Last Filed: 06/21/21 12:51> Related Data Home medications: Home Medications Medication Instructions Recorded Confirmed lisinopril 20 mg tablet 20 mg PO BID 12/08/19 05/22/21 Previous Rx's Medication Instructions Recorded metoprolol succinate 50 mg 50 mg PO DAILY #90 tab 05/17/20 tablet,extended release 24 hr insulin aspart U-100 100 unit/mL 10 unit (0.1 mL) SUBCUT TID #15 ml 06/16/20 (3 mL) subcutaneous pen (Novolog Flexpen U-100 Insulin aspart) clotrimazole-betamethasone 1 1 appl TOPICAL BID #45 g 10/14/20 %-0.05 % topical cream diphenhydramine HCl 25 mg tablet 25 mg PO DAILY PRN #50 tab 10/31/20 (Banophen) insulin glargine 100 unit/mL (3 25 unit (0.25 mL) SUBCUT BEDTIME 11/03/20 mL) subcutaneous pen (Lantus #24 ml Solostar U-100 Insulin) blood sugar diagnostic (FreeStyle #100 ea 12/08/20 Lite Strips) blood-glucose meter (FreeStyle #1 ea 12/08/20 Lite Meter) lancets 28 gauge (FreeStyle #100 ea 12/08/20 Lancets) rivaroxaban 10 mg tablet (Xarelto) 10 mg PO DAILY #90 tab 04/10/21 oxycodone 5 mg tablet 5 mg PO BID PRN #30 tab 04/14/21 tramadol 50 mg tablet 50 mg PO BEDTIME PRN #30 tab 04/14/21 temazepam 15 mg capsule 1 cap PO BEDTIME 30 Days #30 cap 04/19/21 omeprazole magnesium 10 mg oral 20 mg PO DAILY #30 ea 05/23/21 suspension,delayed release (Prilosec) omeprazole magnesium 20 mg 20 mg PO DAILY #30 tab 05/23/21 tablet,delayed release (Prilosec OTC) ondansetron 8 mg disintegrating 8 mg PO Q8H PRN #30 tab 05/23/21 tablet acetaminophen 325 mg-DM 10 mg/10 20 ml PO Q4H PRN #240 ml 06/13/21 mL oral liquid (Robitussin Cough-Sore Throat) <LEIGH Diaz - Last Filed: 06/21/21 12:51> Allergies/adverse reactions: Allergies Allergy/AdvReac Type Severity Reaction Status Date / Time chlorhexidine [CHLORHEXIDINE] Allergy Intermediate RASH,HIVES Verified 06/21/21 10:57 latex Allergy Unknown Verified 06/21/21 10:57 madical tape AdvReac Severe rash Uncoded 05/22/21 09:22 <LEIGH Diaz Last Filed: 06/21/21 12:51> Review of Systems Constitutional: Constitutional: Reports no additional constitutional complaints, Denies chills, Denies fever(s) and Denies night sweats <LEIGH Diaz Last Filed: 06/21/21 12:51> Eyes: Eyes: Reports no additional eye complaints, Denies blurry vision, Denies change in vision, Denies diplopia, Denies eye discharge, Denies loss of vision and Denies eye pain <LEIGH Diaz Last Filed: 06/21/21 12:51> ENT: Denies dizziness <LEIGH Diaz Last Filed: 06/21/21 12:51> Cardiovascular: Cardiovascular: Reports no additional cardiovascular complaints, Denies chest pain, Denies lightheadedness, Denies Loss of Consciousness and Denies dyspnea <LEIGH Diaz Last Filed: 06/21/21 12:51> Respiratory: Respiratory: Reports no additional respiratory complaints, Reports cough and Denies dyspnea <LEIGH Diaz Last Filed: 06/21/21 12:51> Gastrointestinal: Gastrointestinal: Reports no additional gastrointestinal complaints, Denies abdominal pain, Denies melena, Denies hematochezia, Denies change in bowel habits and Denies change in stool character <LEIGH Diaz Last Filed: 06/21/21 12:51> Genitourinary: Genitourinary: Reports no additional male genitourinary complaints, Denies hematuria, Denies oliguria, Denies difficulty urinating, Denies dysuria, Denies urinary frequency, Denies urinary hesitancy, Denies urinary incontinence and Denies urinary urgency <LEIGH Diaz Last Filed: 06/21/21 12:51> Musculoskeletal: Musculoskeletal: Reports no additional musculoskeletal complaints, Denies numbness and Denies tingling <LEIGH Diaz Last Filed: 06/21/21 12:51> Neurologic: Denies dizziness, Denies loss of vision, Denies numbness and Denies tingling <LEIGH Diaz - Last Filed: 06/21/21 12:51> Psychiatric: Psychiatric: Reports no additional psychiatric complaints <LEIGH Diaz - Last Filed: 06/21/21 12:51> Endocrine: Endocrine: Reports no additional endocrine complaints <LEIGH Diaz - Last Filed: 06/21/21 12:51> Hematologic/Lymphatic: Hematologic/Lymphatic: Reports no additional kyle tologic/lymphatic complaints <LEIGH Diaz - Last Filed: 06/21/21 12:51> Allergic/Immunologic: Allergic/Immunologic: Reports no additional allergic/immunologic complaints <LEIGH Diaz - Last Filed: 06/21/21 12:51> [facility] Past Medical History Attestation statement: The following information was validated with the patient. 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 Mother Mouth cancer Sister Breast cancer <LEIGH Diaz - Last Filed: 06/21/21 12:51> Social History Social History: Social History Household Members: Children Housing: Apartment Are you a primary care asst to a significant other at home: No Do you presently have visiting nurse or other home services: Yes Alcohol intake: current Alcohol intake frequency: a few times a week Alcohol type: beer Patient Tobacco Use Status: Never used Tobacco Advance Directives: No Advance Directives Information Provided: No service: No Current occupational status: disabled <LEIGH Diaz - Last Filed: 06/21/21 12:51> Physical Exam ED Vital Signs: Vital Signs - 24 hr 06/21/21 10:54 06/21/21 12:34 Temperature 97.6 F Pulse Rate 74 74 Respiratory Rate 17 10 L Blood Pressure 117/61 128/72 Pulse Oximetry 97 97 BMI result Body Mass Index 26.0 <LEIGH Diaz - Last Filed: 06/21/21 12:51> Const General: cooperative, no acute distress, alert and awake <LEIGH Diaz Last Filed: 06/21/21 12:51> Nutritional Appearance: well nourished <LEIGH Diaz Last Filed: 06/21/21 12:51> Orientation/consciousness: patient oriented x3 <LEIGH Diaz Last Filed: 06/21/21 12:51> Limitations: no limitations <LEIGH Diaz Last Filed: 06/21/21 12:51> HENMT Head: Yes normal to inspection and Yes atraumatic <LEIGH Diaz Last Filed: 06/21/21 12:51> Ears: hearing grossly normal bilaterally and external ears normal <LEIGH Diaz - Last Filed: 06/21/21 12:51> General nose exam: Normal external nose present, no nasal discharge noted and no epistaxis <LEIGH Diaz Last Filed: 06/21/21 12:51> Face and sinus: Yes normal facial exam, No abrasion and No laceration <LEIGH Diaz Last Filed: 06/21/21 12:51> Mouth: Normal oral and palatal mucosa present, no drooling and no muffled voice <LEIGH Diaz - Last Filed: 06/21/21 12:51> Eyes General: appearance normal, both eyes and all related structures <Helga Fuchs PA - Last Filed: 06/21/21 12:51> Periorbital: periorbital findings normal <Helga Fuchs PA - Last Filed: 06/21/21 12:51> Eyelids: Yes eyelids normal <Helga Fuchs PA - Last Filed: 06/21/21 12:51> Conjunctivae: conjunctivae normal <Helga Fuchs PA - Last Filed: 06/21/21 12:51> Pupils: Equal, round and reactive pupils present <Helga Fuchs PA - Last Filed: 06/21/21 12:51> EOM: EOMs intact bilaterally <Helga Fuchs PA - Last Filed: 06/21/21 12:51> Neck Neck: Yes normal visual inspection, Yes full ROM and Yes no lymphadenopathy <Helga Fuchs PA - Last Filed: 06/21/21 12:51> Chest Chest palpation & inspection: normal inspection of the chest <Helga Fuchs PA - Last Filed: 06/21/21 12:51> Resp Effort & Inspection: normal respiratory effort, able to speak in complete sentences and Actively coughing <Helga Fuchs PA - Last Filed: 06/21/21 12:51> Auscultation: clear to auscultation bilaterally <Helga Fuchs PA - Last Filed: 06/21/21 12:51> Cardio Rate: regular rate <Helga Fuchs PA - Last Filed: 06/21/21 12:51> Rhythm: regular rhythm <Helga Fuchs PA - Last Filed: 06/21/21 12:51> GI Inspection: Yes normal to inspection <Helga Fuchs PA - Last Filed: 06/21/21 12:51> Neuro General: patient oriented x3 and moves all extremities <Helga FuchsLEIGH - Last Filed: 06/21/21 12:51> Cranial nerves: Yes Equal, round and reactive pupils present <Helga Fuchs PA - Last Filed: 06/21/21 12:51> Cognition (Neuro): normal cognition <Helga Fuchs PA - Last Filed: 06/21/21 12:51> Motor exam (neuro): 5/5 motor strength present throughout <Helga Fuchs LEIGH - Last Filed: 06/21/21 12:51> Sensory Exam: Normal double simultaneous stimulation for sensation <Helga Fuchs LEIGH - Last Filed: 06/21/21 12:51> Coordination: [id number] test normal <Helga Fuchs LEIGH - Last Filed: 06/21/21 12:51> Extrem General: Yes normal to inspection, Yes full ROM and Yes capillary refill normal <Helga Fuchs LEIGH - Last Filed: 06/21/21 12:51> Psych Appearance: grossly normal <Helga Fuchs LEIGH - Last Filed: 06/21/21 12:51> Mental Status: mental status grossly normal <Helga Fuchs LEIGH - Last Filed: 06/21/21 12:51> Affect: normal affect <Helga Fuchs LEIGH - Last Filed: 06/21/21 12:51> Attitude: cooperative <Helga Fuchs LEIGH - Last Filed: 06/21/21 12:51> Thought process: Normal thought process present <Helga Fuchs LEIGH Cullen Last Filed: 12:51> Thought content: Normal thought content present <Helga Fuchs LEIGH Cullen Last Filed: 06/21/21 12:51> Insight: Good insight present (Psych) <Helga Fuchs LEIGH Cullen Last Filed: 06/21/21 12:51> Medical Decision Making MDM Narrative Medical decision making narrative: Patient is a 71 year old male presenting to the emergency department today with a cough and feeling generally unwell. Patient's physical exam was unremarkable. Patient's blood work was unremarkable and consistent with his previous results. Patient's EKG was unremarkable. Patient's chest x-ray showed no acute process. Patient's rapid COVID-19 test was negative. Patient's rapid influenza test was positive. I explained my physical exam findings as well as all test results to the patient and the patient's son. I answered all questions asked by the patient and the patient's son. I stressed the importance of the patient taking his medication as prescribed. I stressed the importance of the patient following up with his primary care provider and oncologist. I stressed the importance of the patient returning to the emergency department immediately if his symptoms were to worsen or if he were to develop any dizziness, shortness of breath, difficulty breathing, chest pain, blurry vision, loss of vision, nausea, vomiting, abdominal pain, fever, chills, back pain, or any other complaints. Patient and the patient's son verbalized agreement and understanding with this treatment plan and discharge. <LEIGH Diaz - Last Filed: 06/21/21 12:51> Differential Diagnosis Differential Diagnosis: cough, influenza, COVID-19 <LEIGH Diaz - Last Filed: 06/21/21 12:51> Medical Records Medical records reviewed: Yes I reviewed the patient's medical records. <LEIGH Diaz - Last Filed: 06/21/21 12:51> Lab Data Lab results reviewed: Yes I reviewed the patient's lab results. <LEIGH Diaz - Last Filed: 06/21/21 12:51> Result diagrams: : 06/21/21 11:34 06/21/21 11:34 <LEIGH Diaz - Last Filed: 06/21/21 12:51> Labs: Lab Results 06/21/21 06/21/21 06/21/21 Range/Units 10:57 10:59 11:34 WBC 6.5 (4.8-10.8) X10*3/uL RBC 4.56 L (4.60-5.80) X10*6/uL Hgb 15.7 (14.0-18.0) g/dl Hct 45.7 (42.0-52.0) % MCV 100.2 H (80.0-98.0) fL MCH 34.4 H (27.0-33.0) pg MCHC 34.4 (31.0-36.0) g/dl RDW 11.6 (11.0-16.0) % Plt Count 365 D (160-400) X10*3/uL MPV 9.2 L (9.4-12.4) fL Immature Gran % (Auto) Cancelled Neut % (Auto) Cancelled Lymph % (Auto) Cancelled Calvert % (Auto) Cancelled Eos % (Auto) Cancelled Baso % (Auto) Cancelled Lymph # (Auto) Cancelled Calvert # (Auto) Cancelled Eos # (Auto) Cancelled Baso # (Auto) Cancelled Abs Immat Gran (auto) Cancelled Absolute Neuts (auto) Cancelled Absolute Nucleated RBC 0.000 (0.0-0.012) X10*3/uL Nucleated RBC % (auto) 0.0 (0.0-0.2) /100WBC Neutrophils % (Manual) 52 (45-73) % Band Neutrophils % 12 H (3-5) % Lymphocytes % (Manual) 14 L (20-40) % Monocytes % (Manual) 16 H (2-11) % Eosinophils % (Manual) 1 (0-4) % Basophils % (Manual) 3 H (0-2) % Metamyelocytes % 2 % Abs Neuts (Manual) 4.2 (2.0-8.3) X10*3/uL Lymphocytes # (Manual) 0.9 L (1.2-4.9) X10*3/uL Monocytes # (Manual) 1.0 (0.1-1.2) X10*3/uL Eosinophils # (Manual) 0.1 (0.0-0.4) X10*3/uL Basophils # (Manual) 0.2 (0.0-0.2) X10*3/uL Metamyelocytes # 0.1 X10*3/uL Nucleated RBCs 1 H (0-0) /100WBC Toxic Vacuolation PRESENT Platelet Estimate NORMAL (NORMAL) Plt Morphology Comment NORMAL RBC Morphology NOTED Macrocytosis 1+ (5-14) /OIF VBG pH (7.32-7.43) VBG pCO2 mmHg VBG pO2 mmHg VBG HCO3 (22-26) mmol/L VBG O2 Saturation % VBG Base Excess mmol/L Sodium (135-145) mmol/L Potassium (3.3-5.1) mmol/L Chloride (96-108) mmol/L Carbon Dioxide (22-29) mmol/L Anion Gap (12-20) BUN (9-16) mg/dL Creatinine (0.5-1.4) mg/dL Estim Creat Clear Calc Estimated GFR Random Glucose (60-115) mg/dL Calcium (8.4-10.2) mg/dL Troponin I High Sens (<3.5-35.0) ng/L B-Natriuretic Peptide (<100) pg/mL COVID-19 (MELBA) Negative (Negative) COVID-19 Clin Com See Note Influenza Type A (ANDREW) Positive A (Negative) Influenza Type B (ANDREW) Negative (Negative) Influenza A & B Note See Note 06/21/21 06/21/21 06/21/21 Range/Units 11:34 11:34 11:37 WBC (4.8-10.8) X10*3/uL RBC (4.60-5.80) X10*6/uL Hgb (14.0-18.0) g/dl Hct (42.0-52.0) % MCV (80.0-98.0) fL MCH (27.0-33.0) pg MCHC (31.0-36.0) g/dl RDW (11.0-16.0) % Plt Count (160-400) X10*3/uL MPV (9.4-12.4) fL Immature Gran % (Auto) Neut % (Auto) Lymph % (Auto) Calvert % (Auto) Eos % (Auto) Baso % (Auto) Lymph # (Auto) Calvert # (Auto) Eos # (Auto) Baso # (Auto) Abs Immat Gran (auto) Absolute Neuts (auto) Absolute Nucleated RBC (0.0-0.012) X10*3/uL Nucleated RBC % (auto) (0.0-0.2) /100WBC Neutrophils % (Manual) (45-73) % Band Neutrophils % (3-5) % Lymphocytes % (Manual) (20-40) % Monocytes % (Manual) (2-11) % Eosinophils % (Manual) (0-4) % Basophils % (Manual) (0-2) % Metamyelocytes % % Abs Neuts (Manual) (2.0-8.3) X10*3/uL Lymphocytes # (Manual) (1.2-4.9) X10*3/uL Monocytes # (Manual) (0.1-1.2) X10*3/uL Eosinophils # (Manual) (0.0-0.4) X10*3/uL Basophils # (Manual) (0.0-0.2) X10*3/uL Metamyelocytes # X10*3/uL Nucleated RBCs (0-0) /100WBC Toxic Vacuolation Platelet Estimate (NORMAL) Plt Morphology Comment RBC Morphology Macrocytosis /OIF VBG pH 7.46 H (7.32-7.43) VBG pCO2 34 mmHg VBG pO2 87 mmHg VBG HCO3 24 (22-26) mmol/L VBG O2 Saturation 97.0 % VBG Base Excess 1.6 mmol/L Sodium 132 L (135-145) mmol/L Potassium 4.9 D (3.3-5.1) mmol/L Chloride 98 (96-108) mmol/L Carbon Dioxide 25 (22-29) mmol/L Anion Gap 14 (12-20) BUN 11 (9-16) mg/dL Creatinine 1.03 (0.5-1.4) mg/dL Estim Creat Clear Calc 65.4 Estimated GFR > 60 Random Glucose 119 H D (60-115) mg/dL Calcium 8.6 (8.4-10.2) mg/dL Troponin I High Sens < 3.5 (<3.5-35.0) ng/L B-Natriuretic Peptide 31 (<100) pg/mL COVID-19 (MELBA) (Negative) COVID-19 Clin Com Influenza Type A (ANDREW) (Negative) Influenza Type B (ANDREW) (Negative) Influenza A & B Note <LEIGH Diaz - Last Filed: 06/21/21 12:51> Imaging Data Chest x-ray: Attestation: I personally reviewed and interpreted this imaging study as follows: <LEIGH Diaz - Last Filed: 06/21/21 12:51> My impression: Right sided port in place. <LEIGH Diaz - Last Filed: 06/21/21 12:51> Radiologist's impression: EXAMINATION: XR CHEST CLINICAL INFORMATION: Cough, chest pain. COMPARISON: 04/04/2018 chest radiographs. TECHNIQUE: Frontal view of the chest was obtained. FINDINGS: Support devices: Right-sided central venous port with tip terminating in the superior vena cava. No significant abnormality is noted involving the heart, lungs, mediastinum, bony thorax or soft tissues. XR/XR chest 1V IMPRESSION: No acute cardiopulmonary process. ? Dictated By: Mike Danielle MD Signed By: Electronically signed by Mike Danielle MD 06/21/21 4791 <LEIGH Diaz - Last Filed: 06/21/21 12:51> ECG Data Attestation: I personally reviewed and interpreted this ECG as follows: <LEIGH Oshea - Last Filed: 06/21/21 12:51> Prior ECG tracings: available for review <LEIGH Diaz - Last Filed: 06/21/21 12:51> Interpretation: Vent. Rate: 068 BPM ? ? Atrial Rate: 068 BPM P-R Int: 136 ms? QRS Dur: 094 ms QT Int: 410 ms ? ? ? P-R-T Axes: 079 065 081 degrees QTc Int: 435 ms ? Normal sinus rhythm Normal ECG <LEIGH Diaz Last Filed: 06/21/21 12:51> Discharge Plan Discharge Clinical Impression: Influenza, Colon cancer <LEIGH Diaz Last Filed: 06/21/21 12:51> Patient Disposition: Home, Self-Care <LEIGH Diaz Last Filed: 06/21/21 12:51> Instructions: Influenza (DC) <LEIGH Diaz Last Filed: 06/21/21 12:51> Prescriptions: No Action insulin aspart U-100 [Novolog Flexpen U-100 Insulin] 100 unit/mL (3 mL) insulin pen 10 unit subcut TID Qty: 15 0RF Lantus Solostar U-100 Insulin 100 unit/mL (3 mL) insulin pen 25 unit subcut BEDTIME Qty: 24 3RF (DME) FreeStyle Lite Strips Strip See Rx Instructions .Route Qty: 100 3RF Rx Instructions: TEST 3 TIMES DAILY (DME) blood-glucose meter [FreeStyle Lite Meter] Kit See Rx Instructions .Route Qty: 1 0RF Rx Instructions: TEST 3 TIMES DAILY (DME) lancets [FreeStyle Lancets] 28 gauge misc See Rx Instructions .Route Qty: 100 3RF Rx Instructions: TEST 3 TIMES DAILY lisinopril 20 mg Tablet 20 mg PO BID 0RF metoprolol succinate 50 mg Tablet Extended Release 24 Hr 50 mg PO DAILY Qty: 90 3RF clotrimazole-betamethasone 1-0.05 % Cream 1 appl TOPICAL BID Qty: 45 4RF diphenhydramine HCl [Banophen] 25 mg Tablet 25 mg PO DAILY PRN (Reason: Insomnia) Qty: 50 4RF Xarelto 10 mg Tablet 10 mg PO DAILY Qty: 90 3RF Rx Instructions: for 35 days tramadol 50 mg Tablet 50 mg PO BEDTIME PRN (Reason: Pain) Qty: 30 0RF oxycodone 5 mg Tablet 5 mg PO BID PRN (Reason: Pain) Qty: 30 0RF temazepam 15 mg capsule 1 cap PO BEDTIME 30 Days Qty: 30 0RF Prilosec 10 mg Susp,Delayed Release For Recon 20 mg PO DAILY Qty: 30 0RF omeprazole magnesium [Prilosec OTC] 20 mg Tablet,Delayed Release (Dr/Ec) 20 mg PO DAILY Qty: 30 3RF ondansetron 8 mg Tablet,Disintegrating 8 mg PO Q8H PRN (Reason: Nausea) Qty: 30 3RF Robitussin Cough-Sore Throat 325-10 mg/10 mL Liquid 20 ml PO Q4H PRN (Reason: Cough) Qty: 240 3RF <LEIGH Diaz - Last Filed: 06/21/21 12:51> Referrals: Paul Romero MD [Primary Care Provider] - (Follow up with your PCP. ) <LEIGH Diaz - Last Filed: 06/21/21 12:51> Interventions: ED Discharge Assessment Last Done: 06/21/21 12:37 <LEIGH Diaz - Last Filed: 06/21/21 12:51> Discharge Date/Time: 06/21/21 12:38 <LEIGH Diaz - Last Filed: 06/21/21 12:51> Print Language: [place] African <LEIGH Diaz - Last Filed: 06/21/21 12:51>
[2021-06-21 11:26] LABS: IDNOW Serial# 55D5AD1C; Influenza A Positive (Negative); Influenza B2 Negative (Negative)
[2021-06-21 11:26] LABS: COVID-19 Test Negative (Negative); IDNOW Serial# 16C4AD1C
[2021-06-21 11:43] LABS: Hematocrit 45.7 % (42.0-52.0); Hemoglobin 15.7 g/dl (14.0-18.0); Mean Corpuscular HGB Conc 34.4 g/dl (31.0-36.0); Mean Corpuscular Hemoglobin 34.4 pg (27.0-33.0); Mean Corpuscular Volume 100.2 fL (80.0-98.0); Mean Platelet Volume 9.2 fL (9.4-12.4); Platelet Count 365 X10*3/uL (160-400); Red Blood Count 4.56 X10*6/uL (4.60-5.80); Red Cell Distribution Width 11.6 % (11.0-16.0); White Blood Count 6.5 X10*3/uL (4.8-10.8)
[2021-06-21 11:53] LABS: VBG Base Excess 1.6 mmol/L; VBG HCO3 24 mmol/L (22-26); VBG pCO2 34 mmHg; VBG pH 7.46 (7.32-7.43); VBG pO2 87 mmHg
[2021-06-21 11:53] LABS: Venous Blood Gas Refer to POC result
[2021-06-21 12:16] LABS: Anion Gap 14 (12-20); Blood Urea Nitrogen 11 mg/dL (9-16); Calcium 8.6 mg/dL (8.4-10.2); Carbon Dioxide 25 mmol/L (22-29); Chloride 98 mmol/L (96-108); Creatinine Clr Calc Pharmacy 65.4; Estimated Glomerular Filt Rate > 60; Glucose Random 119 mg/dL (60-115); Potassium 4.9 mmol/L (3.3-5.1); Sodium 132 mmol/L (135-145)
[2021-06-21 12:26] LABS: Band Neutrophils Percent 12 % (3-5); Basophils Abs Manual 0.2 X10*3/uL (0.0-0.2); Basophils Percent Manual 3 % (0-2); Eosinophils Absolute Manual 0.1 X10*3/uL (0.0-0.4); Eosinophils Percent Manual 1 % (0-4); Lymphocytes Absolute Manual 0.9 X10*3/uL (1.2-4.9); Lymphocytes Percent Manual 14 % (20-40); Metamyelocytes Absolute 0.1 X10*3/uL; Metamyelocytes Percent 2 %; Monocytes Percent Manual 16 % (2-11); Neutrophils Absolute Manual 4.2 X10*3/uL (2.0-8.3); Neutrophils Percent Manual 52 % (45-73); Nucleated Red Blood Cells 1 /100WBC (0-0)
[2021-06-21 12:28] LABS: Macrocytosis 1+ (5-14) /OIF; Platelet Estimate NORMAL (NORMAL); Platelet Morphology Comment NORMAL; RBC Morphology NOTED
[2021-06-21 12:29] LABS: Toxic Vacuolation PRESENT
[2021-06-21 12:34] VITALS: BP 128/72; PULSE 74; RESP 10; O2SAT 97
[2021-06-21 12:37] LABS: B Type Natriuretic Peptide 31 pg/mL (<100); Troponin-I High Sensitivity < 3.5 ng/L (<3.5-35.0)
== END 2021-06-21 12:38 | disposition home or self-care (01) ==
PROVIDERS: Physician Assistant Medical; Emergency Provider Emergency Medicine; PCP Internal Medicine
DX: J11.1 Influenza due to unidentified influenza virus with other respiratory manifestations (principal); C18.9 Malignant neoplasm of colon, unspecified; I10 Essential (primary) hypertension; E11.9 Type 2 diabetes mellitus without complications; Z79.4 Long term (current) use of insulin; Z86.73 Personal history of transient ischemic attack (TIA), and cerebral infarction without residual deficits; Z20.822 Contact with and (suspected) exposure to COVID-19
CPT/HCPCS: 36415; 71045; 80048; 82803; 83880; 84484; 85007; 85027; 87502; 87635; 93005; 99283; 99284

== ENCOUNTER 2021-08-25 12:43 | Outpatient (REF) | payer OTHER, SELFPAY ==
--- NOTE | 2021-08-25 15:21 | PFT_ITS ---
Forced vital capacity 82%, FEV1 76%. FEV1/FVC ratio is 71. [id number] 58% and MVV 80%. Post-bronchodilator therapy, there is no change. Total lung capacity 79% and residual volume 88%. Diffusion capacity 60%. CONCLUSION: Mild obstructive airway disorder. No response to bronchodilator therapy. MD MICHELE Crews/DIGNA / [id number]
== END 2021-08-25 12:44 | disposition home or self-care (01) ==
LOC: HO.RESP 12:43
PROVIDERS: PCP Internal Medicine; Visit Provider Internal Medicine
DX: R06.02 Shortness of breath (principal)
CPT/HCPCS: 94060; 94727; 94729

== ENCOUNTER 2021-10-25 07:17 | Outpatient (REF) | payer OTHER, SELFPAY ==
--- NOTE | ~2021-10-25 | CT_ITS ---
EXAMINATION: CT ABDOMEN AND PELVIS WITHOUT AND WITH CONTRAST CLINICAL INFORMATION: Right lower quadrant pain. COMPARISON: CT abdomen and pelvis 05/10/2021 TECHNIQUE: Multidetector volumetric imaging was performed of the abdomen and pelvis before and after the IV administration of 85 mL of Omnipaque 300 intravenous contrast. Sagittal and coronal reformatted images were obtained on the technologist's workstation. This CT examination was performed using dose optimization techniques as appropriate, variously including the following: *Automated exposure control *Adjustment of mA and/or kV according to patient size (this includes techniques or standardized protocols for targeted exams where dose is matched to indication/reason for exam; i.e. extremities or head) *Use of iterative reconstruction technique DLP: 736 mGy-cm FINDINGS: LUNG BASES: There is plate-like atelectasis right lung base. The left lung base is unremarkable. The heart size is normal. LIVER, GALLBLADDER, AND BILIARY TREE: The liver is normal in size, shape, and attenuation. There is a slightly elongated lesion in segment 4A measures approximately 4 cm in maximum length and 1.9 cm wide on axial image 12/3. It measures 39 Hounsfield units on precontrast, 48 Hounsfield units on arterial phase and 83 Hounsfield units on venous phase. A second lesion in the right hepatic lobe segment 6 measures 2.0 x 1.5 cm on axial image 25/3. It measures 35 Hounsfield units on precontrast, immediate arterial phase measures 31HU and on venous phase it measures 44 Hounsfield units. Previously described first and second lesions appear as one lesion on this exam The gallbladder is unremarkable with no evidence of radiopaque gallstones, gallbladder wall thickening, or obvious pericholecystic inflammatory changes. PANCREAS: The pancreas is homogeneous in density appears unremarkable. SPLEEN: The spleen is mildly heterogenous in arterial phase likely related to flow phenomenon. No focal defect or enlargement seen. ADRENAL GLANDS: The adrenal glands are unremarkable. KIDNEYS AND URETERS: The kidneys are normal in size, shape, and attenuation. No hydronephrosis, hydroureter, or calculi seen. No perinephric stranding. BLADDER: Unremarkable. GASTROINTESTINAL TRACT: The small and large bowel are unremarkable. The appendix is unremarkable. ABDOMINAL WALL: A small umbilical hernia containing fat is noted. LYMPH NODES: No abnormal retroperitoneal lymph nodes or mass seen. VASCULAR: There are atherosclerotic changes of abdominal aorta without aneurysmal dilatation. PELVIC VISCERA: Pelvis was not imaged. OSSEOUS STRUCTURES: No aggressive lytic or sclerotic process seen. CT/CT abdomen pelvis wo/w con IMPRESSION: Previously seen, two lesions in segment 4A appears one big 4 cm lesion with mild enhancement and increased density and venous flow. It is most suspicious for metastatic lesion. On previous exam there is moderate enhancement seen centrally in this lesion more intense than present exam. Second lesion in the right hepatic lobe peripherally based shows mild enhancement on arterial phase and increased contrast retention on venous phase again suggesting metastatic disease. It measures 2 cm similar to previous study. No new lesions seen. Both these lesions are suggestive of metastatic disease. No new lesions. No intrahepatic ductal dilatation. Mild constipation. Fleischner guidelines were followed.
[2021-10-25] MEDS: iohexoL 350 MG/ML 100 ML INFUS..BTL 85 ML IV (10:12)
[2021-10-25] MEDS: Barium Sulfate Oral (Berry) 450 ML ORAL.SUSP 900 ML PO (10:18)
== END 2021-10-25 07:18 | disposition home or self-care (01) ==
LOC: HO.CT 07:17
PROVIDERS: PCP Internal Medicine; Visit Provider Internal Medicine
DX: R10.31 Right lower quadrant pain (principal); C20 Malignant neoplasm of rectum
CPT/HCPCS: 74178; Q9967

== ENCOUNTER 2022-02-07 14:21 | Outpatient (REF) | payer OTHER, SELFPAY ==
--- NOTE | ~2022-02-07 | XR_ITS ---
EXAMINATION: XR ABDOMEN COMPLETE CLINICAL INDICATION: Constipation and abdominal pain. COMPARISON: CT abdomen/pelvis 10/25/2021. TECHNIQUE: 2 views of the abdomen. FINDINGS: Nonobstructive bowel gas pattern. Mild to moderate colonic stool burden. Colorectal anastomosis. Pelvic phleboliths. No acute osseous abnormalities. The visualized lung bases are clear. XR/XR abdomen min 2V IMPRESSION: 1. Nonobstructive bowel gas pattern. 2. Mild to moderate colonic stool burden.
== END 2022-02-07 14:22 | disposition home or self-care (01) ==
LOC: HO.XRAY 14:21
PROVIDERS: PCP Internal Medicine; Visit Provider Internal Medicine
DX: R10.9 Unspecified abdominal pain (principal)
CPT/HCPCS: 74019

== ENCOUNTER 2022-04-03 08:08 | Outpatient (REF) | payer OTHER, SELFPAY ==
--- NOTE | ~2022-04-03 | CT_ITS ---
EXAMINATION: CT ABDOMEN AND PELVIS WITH IV CONTRAST CLINICAL INFORMATION: History of rectal cancer with metastatic liver disease. Response to treatment. COMPARISON: CT chest 05/10/2021. CT abdomen and pelvis with and without contrast 10/25/2021. TECHNIQUE: 5 mm thin axial and reformatted 3 mm thin sagittal and coronal images of chest, abdomen and pelvis were obtained following IV 85 mL Omnipaque 350. This CT examination was performed using dose optimization technique as appropriate, variously including the following: Automated exposure control Adjustment of MA and/or KV according to patient size(this includes techniques or standardized protocols for targeted exams where dose is matched to indication/reason for exam; extremities or head. Use of iterative reconstruction techniques. FINDINGS: CHEST: Lungs: The lungs are well expanded and clear of acute pneumonic process. There is a 5 mm nodule left lower lobe laterally image 49/4 and a 2 mm nodule along the right minor fissure image 34/4. There are no new nodules visualized. There is plate-like atelectasis right lower lobe superior segment axial image 78/2, stable. Pleura: There is no pleural calcification, effusion or nodules. Minimal bilateral apical pleural thickening. Mediastinum: The thyroid lobes are symmetrical and normal. The central trachea and the bronchi are widely patent. There is a right central venous port with its tip in the mid SVC. Heart size and the great vessels are normal caliber. No no abnormal-sized mediastinal or hilar lymph nodes seen. Moderate coronary artery calcifications are present. Axilla: No abnormal lymph nodes seen. The chest wall is unremarkable except for right chest wall port hardware. Osseous Structures: No lytic or sclerotic process seen. ABDOMEN AND PELVIS: Liver, Ducts and Gallbladder: The liver is normal size with mild attenuation seen throughout. Again visualized is a lesion in segment 4A measuring 4.4 x 2.6 cm. A slightly smaller lesion in segment 6 right hepatic lobe measures 2.2 x 2.2 cm; previously measured 2.0 cm. There are no new lesions visualized. There is no intrahepatic ductal dilatation. The gallbladder is unremarkable. Spleen: Unremarkable. Pancreas: Unremarkable. Adrenal glands: Unremarkable. Kidneys and Ureters: Both kidneys are normal size, cortical enhancement and without hydronephrosis. No radiopaque calculi seen. GI Tract: There is scattered stool and gas seen in the colon without significant distention. The small bowel loops are normal caliber. Appendix is normal caliber. Small bowel loops are normal caliber. No free air or free fluid seen. Lymphovascular Structures: The abdominal aorta is normal caliber. No aneurysmal dilatation. No abnormal-sized retroperitoneal or mesenteric lymph nodes seen. Abdominal Wall: A small umbilical hernia containing fat is noted. Pelvis: There are postsurgical changes involving the rectosigmoid region with patent lumen. No abnormal pelvic lymph nodes. No free fluid. Osseous Structures: There is no aggressive lytic and sclerotic process seen. CT/CT abdomen pelvis w IV con IMPRESSION: Pulmonary Nodules: No new nodules visualized. Minimal atelectatic changes in the right lung are stable as well. No abnormal-sized mediastinal, axillary or retroperitoneal lymph nodes. 2 hepatic lesions are stable. The liver is mildly attenuated. Mild constipation.
[2022-04-03] MEDS: iohexoL 350 MG/ML 100 ML INFUS..BTL IV (08:55)
== END 2022-04-03 08:09 | disposition home or self-care (01) ==
LOC: HO.CT 08:08
PROVIDERS: PCP Internal Medicine; Visit Provider Internal Medicine
DX: C20 Malignant neoplasm of rectum (principal); C78.7 Secondary malignant neoplasm of liver and intrahepatic bile duct
CPT/HCPCS: 71260; 74177; Q9967

== ENCOUNTER 2022-07-20 08:02 | Outpatient (REF) | payer OTHER, SELFPAY ==
--- NOTE | ~2022-07-20 | CT_ITS ---
EXAMINATION: CT CHEST, ABDOMEN AND PELVIS WITH IV CONTRAST CLINICAL INFORMATION: Colon cancer. Increasing CEA. Evaluate for recurrent or metastatic disease. COMPARISON: Previous chest CT and abdominal and pelvic CT most recent March 2022 TECHNIQUE: Axial images through the chest, abdomen and pelvis following 85 mL Omnipaque 350 and oral contrast. This CT examination was performed using dose optimization techniques as appropriate, variously including the following: *Automated exposure control *Adjustment of mA and/or kV according to patient size (this includes techniques or standardized protocols for targeted exams where dose is matched to indication/reason for exam; i.e. extremities or head) *Use of iterative reconstruction technique DLP: 159 plus 323 mGy-cm FINDINGS: CHEST: There is a small 3 mm left lower lobe nodule that is stable. The lungs are otherwise clear. No pleural effusion or pleural thickening. Right jugular port with tip projecting over the SVC. No enlarged hilar or mediastinal lymph nodes. Normal heart size. No pericardial effusion. Mild coronary artery calcification. No chest wall mass or lymph nodes. Degenerative changes of the spine. No bone lesion. ABDOMEN AND PELVIS: Low-attenuation liver suggestive of fatty infiltration. Liver lesions do not appear appreciably changed. Largest lesions measure 1.6 x 4.2 cm high in the dome near the hepatovenous confluence, axial image 11 series 3 and 2.4 x 2.1 cm in the peripheral right lobe, axial image 23 series 3. No new liver lesion. Normal gallbladder. No biliary duct dilatation. Normal spleen, pancreas, adrenal glands, and kidneys. Bladder not optimally distended. The prostate gland is not seen and may have been removed. Postsurgical changes to the rectosigmoid region. There is some minimal increased soft tissue seen posterior to the rectum in the presacral space. This does not appear appreciably changed from prior exams. There is constipation. Small and large bowel are otherwise normal. The stomach is normal. No ascites, adenopathy or evidence of peritoneal disease. Atherosclerotic disease. No aneurysm. Small left inguinal and umbilical hernias containing fat. Review at bone windows demonstrates a small 3 mm sclerotic lesion in the left side of the sacrum, axial image 60 series 3. This is unchanged. There are degenerative changes of the spine. CT/CT abdomen pelvis w IV con IMPRESSION: CHEST: Stable exam. Unchanged 3 mm left lower lobe nodule. ABDOMEN AND PELVIS: Stable exam. Postsurgical changes to the rectosigmoid region. Fatty liver. Stable low-attenuation liver lesions.
[2022-07-20] MEDS: Barium Sulfate Oral (Vanilla) 450 ML ORAL.SUSP 900 ML PO (10:19)
[2022-07-20] MEDS: iohexoL 350 MG/ML 100 ML INFUS..BTL 85 ML IV (11:06)
== END 2022-07-20 08:03 | disposition home or self-care (01) ==
LOC: HO.CT 08:02
PROVIDERS: PCP Internal Medicine; Visit Provider Internal Medicine
DX: C20 Malignant neoplasm of rectum (principal); C78.7 Secondary malignant neoplasm of liver and intrahepatic bile duct
CPT/HCPCS: 71260; 74177; Q9967

== ENCOUNTER 2022-12-25 11:11 | Outpatient (REF) | payer OTHER, SELFPAY ==
--- NOTE | ~2022-12-25 | PE_ITS ---
EXAMINATION: Fluorine-18 FDG PET/CT Scan CLINICAL INDICATION: Subsequent treatment management. Adenocarcinoma of rectum, restaging. PROCEDURE: 60 minutes following the intravenous administration of 16.5 mCi of fluorine 18 FDG, images from the base of the skull to the mid thighs were obtained using a combined PET/CT scanner with CT scan based attenuation correction. No oral contrast was administered. No intravenous contrast was administered. Transverse, coronal, sagittal, and volume reconstruction projections were obtained. The patient's blood glucose as determined by a finger stick, was 122 mg/dl immediately prior to injection. Total CT exam dose-length product 795.92 mGy-cm * These CT images were obtained using dose optimization techniques as appropriate, variously including the following: Automated exposure control * Adjustment of mA and/or kV according to patient size (this includes techniques or standardized protocols for targeted exams where dose is matched to indication/reason for exam; i.e. extremities or head) * Use of iterative reconstruction technique COMPARISON: No previous PET/CT scan is available for comparison. The diagnostic CT scans of the chest, abdomen, and pelvis, dated 07/20/2022 and 04/03/2022 are available for comparison. FINDINGS: (Slice numbers described in this report are numbered superiorly to inferiorly with slice #1 in the head) NECK AND VISUALIZED HEAD: There is almost complete opacification of the right maxillary sinus with mild FDG activity present predominantly in the periphery. A small mucosal retention cyst is present medially in the left maxillary sinus with no associated abnormal FDG activity. No other foci of abnormal FDG activity are noted. The distribution of FDG activity is physiological. There is no cervical lymphadenopathy. THORAX: There are no foci of abnormal FDG activity in the chest. There is a 0.3 cm left lower lobe pulmonary nodule visualized, slice 102/267, much too small to be characterized on the FDG PET images. This is unchanged from the 07/20/2022 CT scan as well as an earlier CT scan dated 04/03/2022. No additional pulmonary nodules are visualized. There is no pleural or pericardial fluid, or pneumothorax. There is no mediastinal, supraclavicular, or axillary lymphadenopathy. A right-sided chest port and associated internal jugular catheter terminating in the superior vena cava are noted. ABDOMEN AND PELVIS: Previously visualized hypodensities in the liver show abnormal FDG activity. The largest and most intense of these is in liver Couinaud segment 8 and shows SUVmax 8.8, slice 134/267. On the CT images this measures 2.6 x 2.4 cm in largest transverse dimensions and approximately 3.6 cm cephalocaudad. This appears slightly larger than on 07/20/2022 when this measured 2.4 x 2.1 cm in largest transverse dimensions. A smaller lesion just medial to this also in segment 8 shows SUVmax 8.8, slice 136/267 and this corresponds to a hypodensity that measures approximately 2.2 x 2 cm in largest transverse dimensions. It is not well delineated on these nondiagnostic CT images and cannot be accurately measured cephalocaudad. A third hypodensity close to the dome of the right lobe in the medial aspect of liver Couinaud segment z 8 shows SUVmax 6.0, slice 119/267. This measures 4.3 x 1.7 cm in largest transverse dimensions on the CT images and is similar in size to 07/20/2022 when this measured 1.6 x 4.2 cm. No definite additional liver lesions are visualized. There is mild FDG activity throughout the gastrointestinal tract. A suture line in the rectum is noted with no associated abnormal FDG activity. There is diverticulosis without evidence of diverticulitis. The hollow viscera are otherwise unremarkable. The spleen, kidneys, adrenal glands and pancreas appear unremarkable. The pelvic organs are unremarkable. There is no retroperitoneal, mesenteric, pelvic or inguinal lymphadenopathy. Small fat-containing left inguinal and periumbilical hernias are stable compared to prior studies. MUSCULOSKELETAL: There are no foci of abnormal FDG activity in the osseous structures. There are degenerative changes in the spine but no suspicious sclerotic or lytic lesions are visualized. VASCULAR: Diffuse vascular calcifications including coronary are noted. Reference SUVmax Levels: Mediastinal Blood Pool: 3.5, Slice 94/267 Liver: 3.8, Slice 131/267 PET/PET CT fusion skull to thigh IMPRESSION: 1. Three FDG avid hypodense liver metastases are visualized. Largest of these, laterally in the right lobe of the liver appears slightly larger on the CT images. 07/20/2022 CT scan and a smaller FDG avid lesion just medial to the latter was not definitely visualized on 07/20/2022. The more superior and more medial third lesion is similar in size compared to 07/20/2022. There is no prior FDG PET CT scan for comparison of the FDG avidity. 2. A 0.3 cm left lower lobe pulmonary nodule is unchanged from prior studies in is much too small to be characterized on the FDG PET images. Attention on subsequent CT imaging of the chest to demonstrate stability is recommended. 3. No additional abnormalities suspicious for other metastatic or malignant lesions are noted. 4. Vascular calcifications including coronary.
== END 2022-12-25 11:12 | disposition home or self-care (01) ==
LOC: HO.PET 11:11
PROVIDERS: PCP Internal Medicine; Visit Provider Internal Medicine
DX: Z13.89 Encounter for screening for other disorder (principal)

== ENCOUNTER 2023-01-25 04:48 | Emergency (ER) | payer OTHER, SELFPAY ==
--- NOTE | 2023-01-25 04:50 | ECG_ITS ---
Test Reason : CHEST PAIN Blood Pressure : / mmHG Vent. Rate : 067 BPM Atrial Rate : 067 BPM P-R Int : 138 ms QRS Dur : 096 ms QT Int : 380 ms P-R-T Axes : 072 056 075 degrees QTc Int : 401 ms Normal sinus rhythm RSR' or QR pattern in V1 suggests right ventricular conduction delay Nonspecific ST abnormality Abnormal ECG When compared with ECG of 21-JUN-2021 10:57, No significant changes seen Referred By: Generic ED Physician Electronically Signed By:JAN DANIEL MD
[2023-01-25 04:54] VITALS: BP 159/94; PULSE 66; RESP 11; TEMP 36.4; O2SAT 99; BMI 27.8
[2023-01-25 05:10] VITALS: PULSE 65
[2023-01-25 05:11] LABS: Basophils Absolute Auto 0.1 X10*3/uL (0.0-0.2); Basophils Percent Auto 0.8 % (0-2); Eosinophils Absolute Auto 0.2 X10*3/uL (0.0-0.4); Eosinophils Percent Auto 1.9 % (0-4); Hematocrit 45.7 % (42.0-52.0); Imm Gran Abs Auto 0.13 X10*3/uL (0.00-0.03); Imm Gran Pct Auto 1.6 % (0.0-0.4); Lymphocytes Absolute Auto 1.8 X10*3/uL (1.2-4.9); Lymphocytes Percent Auto 22.9 % (20-40); MANUAL DIFF FLAG NO; Mean Corpuscular HGB Conc 32.8 g/dl (31.0-36.0); Mean Corpuscular Hemoglobin 32.5 pg (27.0-33.0); Mean Corpuscular Volume 99.1 fL (80.0-98.0); Mean Platelet Volume 9.8 fL (9.4-12.4); Monocytes Absolute Auto 0.8 X10*3/uL (0.1-1.2); Monocytes Percent Auto 10.6 % (2-11); Neutrophils Percent Auto 62.2 % (45-73); Platelet Count 210 X10*3/uL (160-400); Red Blood Count 4.61 X10*6/uL (4.60-5.80); Red Cell Distribution Width 12.9 % (11.0-16.0)
[2023-01-25 05:24] LABS: Anion Gap 13 (12-20); Blood Urea Nitrogen 9 mg/dL (9-16); Calcium 9.1 mg/dL (8.4-10.2); Carbon Dioxide 26 mmol/L (22-29); Chloride 103 mmol/L (96-108); Creatinine Clr Calc Pharmacy 73.4; Estimated Glomerular Filt Rate > 60; Glucose Random 212 mg/dL (60-115); Potassium 4.2 mmol/L (3.3-5.1); Sodium 138 mmol/L (135-145)
[2023-01-25 05:34] LABS: Troponin-I High Sensitivity 684.8 ng/L (<3.5-35.0)
--- NOTE | 2023-01-25 05:37 | ED.CHESTPAIN ---
HPI - Chest Pain General Chief Complaint: Chest Pain Stated Complaint: Chest pain Time Seen by Provider: 01/25/23 05:37 Source: patient Mode of arrival: ambulatory Limitations: no limitations History of Present Illness HPI narrative: Patient is 72 years old with history of metastatic rectal cancer diagnosed in 04/2018 and chemotherapy, diabetes, history of alcohol abuse, history of CVA, hypertension was on Xarelto until last month comes here for mid chest pain started at 11 p.m. last night which is midsternal radiating to all over the chest was feeling slightly dizzy no shortness of breath no radiation of pain to the jaw or arm Related Data Previous Rx's Medication Instructions Recorded clotrimazole-betamethasone 1 1 appl topical BID #45 grams 10/14/20 %-0.05 % topical cream diphenhydramine HCl 25 mg tablet 25 mg PO DAILY PRN Insomnia #50 10/31/20 (Banophen) tabs omeprazole magnesium 20 mg 20 mg PO DAILY #30 tabs 05/23/21 tablet,delayed release (Prilosec OTC) docusate sodium 100 mg capsule 100 mg PO BID #60 caps 12/05/21 (Colace) rivaroxaban 10 mg tablet (Xarelto) 10 mg PO DAILY #90 tabs 01/23/22 sennosides 8.6 mg-docusate sodium 1 tab-cap PO BID PRN Constipation 02/07/22 50 mg tablet (Senna with Docusate #60 tabs Sodium) lisinopril 20 mg tablet 20 mg PO DAILY #90 tabs 02/21/22 blood sugar diagnostic (Cole MartinTouch #100 ea 03/22/22 Ultra Test strips) blood-glucose meter (EZ4Uuch #1 ea 03/22/22 Ultra2 Meter kit) insulin aspart U-100 100 unit/mL 10 unit (0.1 mL) subcut TID #15 mL 03/22/22 (3 mL) subcutaneous pen (Novolog FlexPen U-100 Insulin aspart) insulin glargine 100 unit/mL (3 25 unit (0.25 mL) subcut BEDTIME 03/22/22 mL) subcutaneous pen (Lantus #24 mL Solostar U-100 Insulin) lancets 28 gauge (FreeStyle #100 ea 03/22/22 Lancets) lancets 33 gauge (OneTouch Delica #100 ea 03/22/22 Lancets) pen needle, diabetic 31 gauge x #100 ea 03/22/22 5/16 (BD Ultra-Fine Short Pen Needle) metoprolol succinate 50 mg 50 mg PO DAILY #90 tabs 07/24/22 tablet,extended release 24 hr azithromycin 250 mg tablet 250 mg PO DAILY #6 tabs 07/31/22 temazepam 15 mg capsule 1 cap PO BEDTIME 30 days #30 caps 11/14/22 oxycodone 5 mg tablet 5 mg PO BID PRN Pain #30 tabs 12/26/22 tramadol 50 mg tablet 50 mg PO BEDTIME PRN Pain #30 tabs 12/26/22 gabapentin 300 mg capsule 300 mg PO BEDTIME #30 caps 12/28/22 capecitabine 500 mg tablet 1,500 mg (3 x 500 mg) PO BID #84 12/31/22 tabs Allergies Allergy/AdvReac Type Severity Reaction Status Date / Time adhesive tape Allergy Severe Rash from Verified 12/26/22 08:37 medical tape chlorhexidine [CHLORHEXIDINE] Allergy Intermediate RASH,HIVES Verified 12/26/22 08:37 latex Allergy Unknown Verified 12/26/22 08:37 Review of Systems Review of Systems: Yes all other systems are reviewed and are negative FOR[facility]LY [facility] Past Medical History Medical History Cancer Acute insomnia Acquired polyneuropathy 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 Mother Mouth cancer Sister Breast cancer Social History Household Members: Children Housing: Apartment Are you a primary care manager to a significant other at home: No Do you presently have visiting nurse or other home services: Yes Alcohol intake: current Alcohol intake frequency: a few times a week Alcohol type: beer Patient Tobacco Use Status: Never used Tobacco e-Cigarette/Vaping Use: Never Used Second Hand Smoke Exposure: No Use of substances other than those prescribed or required for medical reasons: No Advance Directives: No Advance Directives Information Provided: No service: No Current occupational status: disabled Cognitive needs: Yes (cane) Hearing needs: No Vision needs: Yes (glasses) Physical Exam Vital Signs: Vital Signs: Last Vital Signs Temp 97.6 F 01/25/23 04:54 Pulse 65 01/25/23 05:59 Resp 18 01/25/23 05:59 BP 165/84 H 01/25/23 05:59 Pulse Ox 99 01/25/23 05:59 O2 Del Method Room Air 01/25/23 05:59 BMI result Body Mass Index 27.8 Appearance: Alert. Oriented X3. No acute distress. Eyes: No pallor or icterus ENT: Pharynx normal. Oral Mucosa moist Neck: Normal inspection. Neck supple. CVS: Normal heart rate and rhythm. Pulses normal. No murmur rub or gallop Respiratory: No respiratory distress. Equal air entry bilateral, no wheezing/rales/rhonchi Abdomen: Soft and nontender. Bowel sounds are present, no mass palpable, no CVA tenderness Skin: Skin warm and dry. Normal skin color. Normal skin turgor. Extremities: No lower extremity edema. No calf tenderness Neuro: Oriented X 3. No motor deficit. No sensory deficit.No cerebellar signs , cranial nerves II-XII intact Medications Administered Discontinued Medications Generic Name Dose Route Start Last Admin Trade Name Keith PRN Reason Stop Dose Admin Aspirin 162 mg 01/25/23 05:42 01/25/23 05:50 Aspirin Enteric Coated 81 Mg Tablet.Dr PO 01/25/23 05:43 162 mg ONCE ONE Administration Atorvastatin Calcium 80 mg 01/25/23 05:50 01/25/23 05:57 Atorvastatin Calcium 80 Mg Tablet PO 01/25/23 05:51 80 mg ONCE ONE Administration Heparin Sodium (Porcine) 5,000 unit 01/25/23 05:48 01/25/23 05:52 Heparin Sodium,Porcine 5,000 Unit/Ml Vial IVPUSH 01/25/23 05:49 5,000 unit ONCE ONE Administration Nitroglycerin 0.4 mg 01/25/23 05:43 01/25/23 05:51 Nitroglycerin 0.4 Mg Tab.Subl SUBLINGUAL 0.4 mg [id number] PRN Administration Chest Pain Ticagrelor 180 mg 01/25/23 05:48 01/25/23 05:56 Ticagrelor 90 Mg Tablet PO 01/25/23 05:49 180 mg ONCE ONE Administration Medical Decision Making Medical Decision Making [facility] Narrative: Patient with early ST elevation in lead V1 V2 repeat EKG showed little worsening of anteroseptal STEMI suspected with elevated troponin to 684.8, case discussed Dr. 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 STEMI Patient received IV 5000 units heparin Brilinta 180 mg aspirin 162 mg nitroglycerin sublingual and atorvastatin 80 mg Differential Diagnosis Differential Diagnoses: The differential diagnosis associated with the presentation includes STEMI/non-STEMI Admission/Observation Consideration of admission/observation: Escalation of care including admission/observation considered Lab Data [facility] Lab Attestation statement: I reviewed the patient's lab results. 01/25/23 05:05 01/25/23 05:05 Labs: Lab Results 01/25/23 01/25/23 01/25/23 Range/Units 05:05 05:49 05:55 WBC 8.0 (4.8-10.8) X10*3/uL RBC 4.61 (4.60-5.80) X10*6/uL Hgb 15.0 (14.0-18.0) g/dl Hct 45.7 (42.0-52.0) % MCV 99.1 H (80.0-98.0) fL MCH 32.5 (27.0-33.0) pg MCHC 32.8 (31.0-36.0) g/dl RDW 12.9 (11.0-16.0) % Plt Count 210 (160-400) X10*3/uL MPV 9.8 (9.4-12.4) fL Immature Gran % (Auto) 1.6 H (0.0-0.4) % Neut % (Auto) 62.2 (45-73) % Lymph % (Auto) 22.9 (20-40) % [place] % (Auto) 10.6 (2-11) % Eos % (Auto) 1.9 (0-4) % Baso % (Auto) 0.8 (0-2) % Lymph # (Auto) 1.8 (1.2-4.9) X10*3/uL [place] # (Auto) 0.8 (0.1-1.2) X10*3/uL Eos # (Auto) 0.2 (0.0-0.4) X10*3/uL Baso # (Auto) 0.1 (0.0-0.2) X10*3/uL Abs Immat Gran (auto) 0.13 H (0.00-0.03) X10*3/uL Absolute Neuts (auto) 5.0 (2.0-8.3) x10*3/uL Absolute Nucleated RBC 0.000 (0.0-0.012) X10*3/uL Nucleated RBC % (auto) 0.0 (0.0-0.2) /100WBC PT 11.3 (11.1-13.3) SEC INR 0.9 (0.9-1.1) APTT 31.0 (26.0-36.4) SEC Sodium 138 (135-145) mmol/L Potassium 4.2 (3.3-5.1) mmol/L Chloride 103 (96-108) mmol/L Carbon Dioxide 26 (22-29) mmol/L Anion Gap 13 (12-20) BUN 9 (9-16) mg/dL Creatinine 0.92 (0.5-1.4) mg/dL Estim Creat Clear Calc 73.4 Estimated GFR > 60 Random Glucose 212 H (60-115) mg/dL Calcium 9.1 D (8.4-10.2) mg/dL Troponin I High Sens 684.8 H* (<3.5-35.0) ng/L COVID-19 ([facility]) Negative (Negative) COVID-19 Clin Com See Note Independent Interpretation I performed an independent interpretation of an: EKG Interpretation: Normal sinus rhythm heart rate 62 beats per minute slight ST elevation in V1 V2 and V3 suggestive of anteroseptal MS Critical Care Time Critical Care Time Critical Care Time: Yes Total Critical Care Time: 40 Attestation: The patient was critically ill with a high probability of imminent or life threatening deterioration. I spent greater than 45 minutes of discontinuous time evaluating the patient,delivering critical care at the bedside, discussing and evaluating pertinent data with consultants. Critical care time does not include time spent performing separately billable procedures or teaching. Total time spent performing critical care was 40 minutes. Discharge Plan Discharge Clinical Impression: ST elevation myocardial infarction (STEMI) Patient Disposition: [facility] Transfer Details: Cardiac catheterization lab under Dr. Jones Prescriptions: No Action Xarelto 10 mg tablet 10 mg PO DAILY Qty: 90 3RF Rx Instructions: for 35 days (DME) pen needle, diabetic [BD Ultra-Fine Short Pen Needle] 31 gauge x 5/16 needle See Rx Instructions .Route Qty: 100 1RF Rx Instructions: four times a day (DME) lancets [FreeStyle Lancets] 28 gauge misc See Rx Instructions .Route Qty: 100 3RF Rx Instructions: TEST 3 TIMES DAILY insulin aspart U-100 [Novolog FlexPen U-100 Insulin] 100 unit/mL (3 mL) insulin pen 10 unit subcut TID Qty: 15 0RF Lantus Solostar U-100 Insulin 100 unit/mL (3 mL) insulin pen 25 unit subcut BEDTIME Qty: 24 3RF (DME) lancets [OneTouch Delica Lancets] 33 gauge misc See Rx Instructions .Route Qty: 100 0RF Rx Instructions: As directed (DME) blood-glucose meter [OneTouch Ultra2 Meter] Kit See Rx Instructions .Route Qty: 1 0RF Rx Instructions: As directed (DME) OneTouch Ultra Test Strip See Rx Instructions .Route Qty: 100 0RF Rx Instructions: As directed clotrimazole-betamethasone 1-0.05 % Cream 1 appl TOPICAL BID Qty: 45 4RF diphenhydramine HCl [Banophen] 25 mg Tablet 25 mg PO DAILY PRN (Reason: Insomnia) Qty: 50 4RF omeprazole magnesium [Prilosec OTC] 20 mg Tablet,Delayed Release (Dr/Ec) 20 mg PO DAILY Qty: 30 3RF sennosides-docusate sodium [Senna with Docusate Sodium] 8.6-50 mg Tablet 1 tab-cap PO BID PRN (Reason: Constipation) Qty: 60 2RF lisinopril 20 mg Tablet 20 mg PO DAILY Qty: 90 3RF metoprolol succinate 50 mg Tablet Extended Release 24 Hr 50 mg PO DAILY Qty: 90 3RF azithromycin 250 mg Tablet 250 mg PO DAILY Qty: 6 0RF Rx Instructions: take 2 tabs day 1 and one tab for 4 days temazepam 15 mg capsule 1 cap PO BEDTIME 30 Days Qty: 30 0RF tramadol 50 mg Tablet 50 mg PO BEDTIME PRN (Reason: Pain) Qty: 30 0RF oxycodone 5 mg tablet 5 mg PO BID PRN (Reason: Pain) Qty: 30 0RF gabapentin 300 mg Capsule 300 mg PO BEDTIME Qty: 30 3RF capecitabine 500 mg Tablet 1,500 mg PO BID Qty: 84 6RF Rx Instructions: for 14 days per 21-day cycle; must administer with water 30 minutes after a meal docusate sodium [Colace] 100 mg capsule 100 mg PO BID Qty: 60 1RF Interventions: Acute Care Transfer Worksheet (ED) Last Done: 01/25/23 06:15 Discharge Date/Time: 01/25/23 06:20
[2023-01-25] MEDS: Aspirin Enteric Coated 81 MG TABLET.DR 162 MG PO (05:50)
[2023-01-25] MEDS: Nitroglycerin 0.4 MG TAB.SUBL SUBLINGUAL (05:51)
[2023-01-25] MEDS: Heparin Sodium,Porcine 5,000 UNIT/ML VIAL 5000 UNIT IVPUSH (05:52)
[2023-01-25] MEDS: Ticagrelor 90 MG TABLET 180 MG PO (05:56)
[2023-01-25] MEDS: Atorvastatin Calcium 80 MG TABLET PO (05:57)
[2023-01-25 05:59] VITALS: BP 165/84; PULSE 65; RESP 18; O2SAT 99
--- NOTE | 2023-01-25 06:00 | PC.NURSE ---
pt now states that his pain started yesterday at approx 2100; unable to get comfortable laying down so spend majority of the night sitting up. approx 3hrs prior to arrival the pain had increased and he requested his bring him to the hospital.
[2023-01-25 06:08] LABS: INTERNATIONAL NORM RATIO 0.9 (0.9-1.1); Prothrombin Time 11.3 SEC (11.1-13.3)
[2023-01-25 06:16] LABS: COVID-19 Test Negative (Negative); IDNOW Serial# BCCEAD1C
== END 2023-01-25 06:20 | disposition short-term general hospital (02) ==
PROVIDERS: Emergency Provider Internal Medicine; PCP Nurse Practitioner Family
DX: I21.3 ST elevation (STEMI) myocardial infarction of unspecified site (principal); R07.89 Other chest pain; R42 Dizziness and giddiness; Z11.52 Encounter for screening for COVID-19; Z20.822 Contact with and (suspected) exposure to COVID-19; Z86.73 Personal history of transient ischemic attack (TIA), and cerebral infarction without residual deficits; Z79.899 Other long term (current) drug therapy; Z79.01 Long term (current) use of anticoagulants
CPT/HCPCS: 36415; 80048; 84484; 85025; 85610; 85730; 87635; 93005; 96374; 99285; J1644

== ENCOUNTER 2023-02-13 16:49 | Outpatient (AMB) | payer OTHER, SELFPAY ==
[2023-02-13 16:52] VITALS: BP 122/78; PULSE 106; O2SAT 97; BMI 25.8
--- NOTE | 2023-02-13 16:52 | A.OFFPC_ITS ---
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 Accompanied by: Self / Same As Patient Allergies adhesive tape Allergy (Severe, Verified 02/13/23 17:26) Rash from medical tape chlorhexidine [CHLORHEXIDINE] Allergy (Intermediate, Verified 02/13/23 17:26) RASH,HIVES latex Allergy (Verified 02/13/23 17:26) Unknown Medication List - Last Reconciled 02/13/23 by Obdulio Hackett MD aspirin 81 mg PO DAILY atorvastatin 80 mg PO BEDTIME blood sugar diagnostic (Roll20 Ultra Test strips) As directed blood-glucose meter (Roll20 Ultra2 Meter kit) As directed capecitabine 1,500 mg (3 x 500 mg) PO BID clotrimazole-betamethasone 1-0.05 % 1 appl topical BID diphenhydramine HCl (Banophen) 25 mg PO DAILY PRN docusate sodium (Colace) 100 mg PO BID folic acid 1 mg PO DAILY gabapentin 300 mg PO BEDTIME insulin aspart U-100 (Novolog FlexPen U-100 Insulin aspart) 10 units (0.1 mL) subcut TID insulin glargine (Lantus Solostar U-100 Insulin) 25 units (0.25 mL) subcut BEDTIME lancets (FreeStyle Lancets) TEST 3 TIMES DAILY lancets (ThoroughCareuch Delica Lancets) As directed lisinopril 20 mg PO DAILY metoprolol succinate ER 50 mg PO DAILY omeprazole magnesium (Prilosec OTC) 20 mg PO DAILY oxycodone 5 mg PO BID PRN pen needle, diabetic (BD Ultra-Fine Short Pen Needle) four times a day pyridoxine (vitamin B6) 50 mg PO DAILY rivaroxaban (Xarelto) 10 mg PO DAILY sacubitril-valsartan 24-26 mg (Entresto) 1 tab PO BID sennosides-docusate sodium 8.6-50 mg (Senna with Docusate Sodium) 1 tab-cap PO BID PRN temazepam 1 cap PO BEDTIME 30 days thiamine HCl (vitamin B1) 100 mg PO BID ticagrelor (Brilinta) 90 mg PO Q12H tramadol 50 mg PO BEDTIME PRN Tobacco use date assessed: 02/13/23 Fall risk assessment: No Falls in past year Last assessed Fall Risk: 02/13/23 Dental Screening Dental Screen Date: 02/13/23 Did you have a dental visit in the last 12 months?: No Did you have a dental problem in the last 6 months where you did not have access to dental care?: No Was dental information given to patient?: No HPI horacio pt needs physical/ heart attack 01/25 HPI Details Patient comes in today for his HDF follow up visit - he is a patient of Horacio Johnson and this is the first time I am seeing patient today He is strangely booked today for a physical exam but it was also indicated that he had a heart attack a few weeks ago on 01/25/23 We cannot do BOTH a physical exam and HDF follow up visit so I have advised patient that I am just seeing him today for a hospital discharge follow up Based on his record, it appears that he went to the ER back on 01/25/2023 for chest pain that started the night before, described as midsternal and is associated with some dizziness but no dyspnea EKG done revealed (+) ST elevation in some of the limb leads, with his labs coming back with a significantly elevated troponin level ar 684.8 STEMI was suspected and patient was urgently transferred to [facility] for interventional Tx He reportedly had cardiac catheterization done and according to his son, had 3 stents inserted but 1 of the stents reportedly ended up getting kinked He also had some changes to his meds but at this time, we have no information regarding any of these available in patient's chart and it is now past closing time so I have advised them that I can only go with what they tell me until we can get his information from [facility] when the offices open back up tomorrow Patient also reportedly has a follow up appointment scheduled with [facility] Cardiology in a couple of days He states that he has trouble sleeping at night in the past and this has gotten a lot worse since his coronary angiogram He has Temazepam in his med list (prescribed by oncology) but it seems that he currently does not have it as it was last refilled over 2 months ago Adds that he has also been experiencing some strange symptoms of numbness and burning sensation and sometime pain in both of his legs lately He denies any headaches or dizziness; relates (+) frequent runny nose and on and off non-productive cough lately Denies any sore throat or fever Denies any chest pains or SOB at present No nausea/vomiting, no abdominal pain No change in bowel habits noted Patient's son states that patient is a type 1 diabetic and is on both long and short-acting insulin - states that his blood sugars have been running somewhat on the high side lately but they cannot quantify it more accurately It appears that he has not had a HgbA1c done in over 6 months and that he was diagnosed with diabetes sometime back in 2019 and was started immediately on insulin but I could not find any further work ups done on him then 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) and has been undergoing chemotherapy but this is now on hold due to his recent [facility] Medical History (Updated 02/14/23 @ 05:25 by Obdulio Hackett MD) Constipation Alcohol abuse Insomnia Coronary atherosclerosis Cancer Acute insomnia Acquired polyneuropathy senior living (current) use of insulin Type 2 diabetes mellitus with other circulatory complications Gastro-esophageal reflux disease without esophagitis H/O alcohol abuse Depression, major, recurrent, moderate Borderline hyperlipidemia Benign hypertension History of alcoholism History of prostate cancer Chronic back pain Skin rash History of conjunctivitis Dyslipidemia GERD (gastroesophageal reflux disease) History of CVA (cerebrovascular accident) Diabetes Hypertension Surgical History History of colon surgery H/O prostatectomy Family History Father No problems noted. Mother Mouth cancer Sister Breast cancer Social History Household Members: Children Housing: Apartment Are you a primary rn managed care to a significant other at home: No Do you presently have visiting nurse or other home services: Yes Alcohol intake: current Alcohol intake frequency: a few times a week Alcohol type: beer Patient Tobacco Use Status: Never used Tobacco e-Cigarette/Vaping Use: Never Used Second Hand Smoke Exposure: No service: No Current occupational status: disabled Cognitive needs: Yes (cane) Hearing needs: No Vision needs: Yes (glasses) Questionnaire PHQ-9 Over the last 2 weeks, how often have you been bothered by any of the following problems? 1. Little interest or pleasure in doing things: not at all 2. Feeling down, depressed, or hopeless: not at all 3. Trouble falling or staying asleep, or sleeping too much: not at all 4. Feeling tired or having little energy: not at all 5. Poor appetite or overeating: not at all 6. Feeling bad about yourself - or that you are a failure or have let yourself or your family down: not at all 7. Trouble concentrating on things, such as reading the newspaper or watching television: not at all 8. Moving or speaking so slowly that other people could have noticed. Or the opposite - being so fidgety or restless that you have been moving around a lot more than usual: not at all 9. Thoughts that you would be better off or of hurting yourself in some way: not at all Total score: 0 Depression Screening Interpretation: Negative Depression Screening Done: Yes [id number] - PHQ-9 Billing: Yes Source: Developed by Drs. Chintan Mirza, Vilma Naylor, Kris Du and colleagues, with an educational ioana from [employer]. Thrive Questionnaire Date Thrive assessed: 02/13/23 I am a: Patient What is your living situation today?: I have a steady place to live Within the past 12 months, did the food you bought not last and you didn't have the money to get more?: Never true Within the past 12 months, did you worry whether your food would run out before you got money to buy more?: Never true Do you have trouble paying for medicines?: No Do you have trouble getting transportation to medical appointments?: No Do you have trouble paying your heating and electricity bill?: No Do you have trouble taking care of your child, family member or friend?: No Do you have trouble with day-to-day activities such as bathing, preparing meals, shopping, managing finances, etc.?: No Are you currently unemployed and looking for a job?: No Are you interested in more education?: No Please select the resources that you would like help with: None Currently or been in a relationship where the following occur: no concerns reported AUDIT C Alcohol Use Questionnaire (AUDIT-C) 1. How often do you have a drink containing alcohol?: 2-3 times a week 2. How many drinks containing alcohol do you have on a typical day when you are drinking?: 3 or 4 (beers) 3. How often do you have six or more drinks on one occasion?: Never Total Score: 4 Score Reviewed/Action Taken: Yes CAL-7 AMB Questionnaire CAL-7 Date CAL - 7 assessed: 02/13/23 Feeling nervous, anxious, or on edge: 0 = Not at all Not being able to stop or control worryin = Not at all Worrying too much about different things: 0 = Not at all Trouble relaxin = Not at all Being so restless that it is hard to sit still: 0 = Not at all Becoming easily annoyed or irritable: 0 = Not at all Feeling afraid as if something awful might happen: 0 = Not at all Total CAL-7 score (0-4 normal; 5-9 mild; 10-14 moderate; 15-21 severe): 0 Source: Developed by Drs. Chintan Mirza, Vilma Naylor, Kris Du and colleagues, with an educational ioana from [employer]. Review of Systems Const Denies chills, Reports difficulty sleeping (increasing), Reports fatigue, Denies fever(s) and Denies headache(s) ENT Denies dysphagia, Denies dizziness, Denies otalgia, Denies headache(s), Reports nasal discharge, Denies neck pain, Denies odynophagia and Denies sore throat Card Denies chest pain, Denies palpitations and Denies dyspnea Resp Denies chest congestion, Reports cough (on and off, non-productive) and Denies dyspnea GI Denies abdominal pain, Denies constipation, Denies dysphagia, Denies heartburn, Denies diarrhea, Denies nausea, Denies odynophagia and Denies vomiting Denies dysuria, Denies nocturia and Denies urinary frequency Musc Details: on and off pain/tingling in legs Denies neck pain Skin/Breast Denies rash Neuro Denies dizziness and Denies headache(s) Endo Reports fatigue and Denies palpitations Physical exam (Primary Care) Vital Signs: Last Vital Signs Pulse 106 H 02/13/23 16:52 BP 122/78 02/13/23 16:52 Pulse Ox 97 02/13/23 16:52 Oxygen Delivery Method Room Air 02/13/23 16:52 BMI result Body Mass Index 25.8 Tobacco/Smoking Status: Tobacco use Status Tobacco use date assessed 02/13/23 02/13/23 17:02 Patient Tobacco Use Status Never used Tobacco 02/13/23 17:02 e-Cigarette/Vaping Use Never Used 02/13/23 17:02 PHQ-9: PHQ-9 Score PHQ-9: Total score 0 02/13/23 19:31 Depression Screening Interpretation: Negative Thrive Assessment: Date of Thrive Assessment Date Thrive assessed 02/13/23 02/13/23 17:02 Currently or been in a relationship where the following occur: no concerns reported Const General: no acute distress and alert HENMT Ears: TM's normal bilaterally and EAC's normal Face and sinus: Yes sinuses nontender Throat: Yes posterior oropharynx normal and Yes tonsils normal (no TP congestion) Neck Neck: Yes no lymphadenopathy and Yes supple Resp Auscultation: clear to auscultation bilaterally, no rales and no wheezes Cardio Rate: regular rate Rhythm: regular rhythm Heart sounds: no murmurs GI Palpation (GI): Soft to palpation and nontender Auscultation: normal bowel sounds Skin General skin exam: no rashes or lesions noted Extrem General: Yes no clubbing, cyanosis or edema Results AMB Hemoglobin A1c AMB Hemoglobin A1c 8.0 % Last Edit by Ria Gardner on 02/13/23 17:38 Results Reviewed Results Reviewed: Laboratory Last Values Hgb A1c (Clinic) 8.0 % (4.0-6.0) H 02/13/23 17:32 Assessment and Plan Assessment & Plan (1) Coronary atherosclerosis: Code(s): I25.10 - Atherosclerotic heart disease of [place] coronary artery without angina pectoris Qualifiers: Coronary Disease-Associated Artery/Lesion type: [place] artery [place] vs. transplanted heart: [place] heart Associated angina: without angina Qualified Code(s): I25.10 - Atherosclerotic heart disease of [place] coronary artery without angina pectoris Plan: S/P STEMI with subsequent coronary angiography and PCI with stenting (reportedly had 3 stents inserted) less than a month ago on 01/25/2023 Will try to obtain copies of his records from [facility] for review Continue Aspirin 81 mg QD, Brilinta 90 mg BID and Xarelto 10 mg QD Continue Atorvastatin 80 mg QD and Metoprolol ER 50 mg QD Follow up with cardiology as scheduled - has appt with [facility] Cardiology coming up in a couple of days (2) Cardiomyopathy: Code(s): I42.9 - Cardiomyopathy, unspecified Qualifiers: Cardiomyopathy type: unspecified Qualified Code(s): I42.9 - Cardiomyopathy, unspecified Plan: 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 Details on this are still unclear and he has no echocardiogram on record at this time It appears that he was switched from his previous Lisinopril 20 mg QD to Entresto 24-26 mg BID at his most recent hospitalization Will try to obtain his records from [facility] for review Follow up with cardiology as scheduled (3) Type 2 diabetes mellitus with other circulatory complications: Code(s): E11.59 - Type 2 diabetes mellitus with other circulatory complications Plan: In-office HgbA1c done today is at 8.0% (was at 7.2% when previously checked on 07/19/22) - goal is < 7.0% Reinforced diabetic diet Have discussed with patient and his son that he likely has type 2 and not type 1 diabetes even though he is on insulin, currently on Lantus 25 units Q HS and Novolog 10 units TID with meals (per sliding scale) Am unclear why he was never started on oral hypoglycemics even though he was just recently diagnosed with diabetes in 2019 but advised them that it may have something to do with his rectal carcinoma diagnosis then Patient is instructed to continue on his current insulin dosages for now Will send him for some labs [facility] for further evaluation, including tests to check his C-peptide and CAL Ab (4) 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: Code(s): C20 - Malignant neoplasm of rectum; C78.7 - Secondary malignant neoplasm of liver and intrahepatic bile duct Plan: Initially diagnosed in April 2018 when biopsy of a hepatic lesion confirmed invasive adenocarcinoma He underwent palliative low anterior resection on 04/16/2018 and pathology revealed rectal adenocarcinoma, pMMR, KRAS/NRAS/BRAF negative HER2 and panTRK both by IHC were also negative Patient started palliative chemotherapy with FOLFOX /cetuximab on 05/28/2018 through 09/24/2018 for a total of 7 cycles He then received single agent cetuximab until January 2019 - Tx was stopped in January 2019 due to persistent / recurrent rash Patient also could not tolerate panitumumab due to recurrent rash He was then is switched to Xeloda with bevacizumab until August 2019 Was started then on single agent capecitabine (Xeloda) in September 2019 Repeat chest and abdominal and pelvis CT in May 2021 revealed some progression of disease in his liver He then resumed IV chemotherapy with FOLFIRI / Avastin from May 2021 Repeat abdominal and pelvis CT in March 2022 revealed stable liver lesions with no new lung lesions Chest, abdominal and pelvic CT in July 2022 also showed no progression of his cancer Follow-up PET-CT scan in December 2022 showed new lesion, stable 0.3 cm left lower lobe pulmonary nodule, with increase in CEA slightly to 15.6 ng/mL Due to his personal desire to no longer continue on the 5 FU pump and to be switched to oral therapy and IV meds without a pump, he was planned to be switched to CAPOX/ Avastin in January 2023 BUT due to his recent MRI, his chemotherapy is now on hold Follow-up with oncology as scheduled (5) Constipation: Code(s): K59.00 - Constipation, unspecified Qualifiers: Constipation type: unspecified constipation type Qualified Code(s): K59.00 - Constipation, unspecified Plan: He is advised that this is likely related to his opioid Rx Is encouraged to increase his oral fluids and dietary fiber Continue Colace 100 mg BID and Senna 8.6 mg BID PRN (6) Gastro-esophageal reflux disease without esophagitis: Code(s): K21.9 - Gastro-esophageal reflux disease without esophagitis Plan: Dietary restrictions reinforced Continue Omeprazole 20 mg QD (7) Nasal drainage: Code(s): J34.89 - Other specified disorders of nose and nasal sinuses Plan: Is advised that this is likely due to some form of rhinitis - may be vasomotor or allergic or both Can consider starting him on some nasal steroid spray if symptoms persist or worsen (8) Paresthesia: Code(s): R20.2 - Paresthesia of skin Plan: Is advised that this is likely due to some form of neuropathy - may be related to his chemotherapy or even to his history of alcohol abuse over the years Will check some labs as well as his B12 level and serum magnesium level RAYNE for further evaluation (9) Chronic pain: Code(s): G89.29 - Other chronic pain Qualifiers: Chronic pain type: other chronic pain Qualified Code(s): G89.29 - Other chronic pain Plan: Likely due to neuropathy Continue Gabapentin 300 mg Q HS and Tramadol 50 mg BID PRN He takes Oxycodone 5 mg BID as well for more severe pains when needed (10) Alcohol abuse: Code(s): F10.10 - Alcohol abuse, uncomplicated Plan: Continue Thiamine 100 mg BID and Pyridoxine 50 mg QD Patient is encouraged/advised to stop drinking alcohol completely in light of his recent [place] and multiple other comorbidities (11) Insomnia: Code(s): G47.00 - Insomnia, unspecified Qualifiers: Insomnia type: unspecified Qualified Code(s): G47.00 - Insomnia, unspecified Plan: Sleep hygiene discussed although doubtful that this will be of much help at this time He was on Temazepam (started by oncology) but it does not appear that he has any Rx of this left at this time Will start him back on Temazepam 15 mg Q HS PRN for now Plan Follow up in 2 months Orders: Orders AMB Hemoglobin A1c 02/13/23 Z13.9 - Encounter for screening, unspecified Comprehensive [place]. Panel Fast 02/13/23 E78.00 - Pure hypercholesterolemia, unspecified, R20.2 - Paresthesia of skin Lipid Panel 02/13/23 E78.00 - Pure hypercholesterolemia, unspecified, R20.2 - Paresthesia of skin TSH reflex Free T4 02/13/23 E78.00 - Pure hypercholesterolemia, unspecified, R20.2 - Paresthesia of skin UA CC w/rflx Micro + Cult 02/13/23 R20.2 - Paresthesia of skin, R30.0 - Dysuria Vitamin B12 and Folate 02/13/23 E53.8 - Deficiency of other specified B group vitamins, R20.2 - Paresthesia of skin Vitamin D 25-OH Total 02/13/23 E55.9 - Vitamin D deficiency, unspecified, R20.2 - Paresthesia of skin Glutamic acid decarboxylase Ab Today E11.9 - Type 2 diabetes mellitus without complications C Peptide Today E11.9 - Type 2 diabetes mellitus without complications Complete Blood Count Auto Diff 02/13/23 I10 - Essential (primary) hypertension, R20.2 - Paresthesia of skin Magnesium 02/13/23 E83.42 - Hypomagnesemia, R20.2 - Paresthesia of skin Microalbumin, Random (w Creat) 02/13/23 E11.9 - Type 2 diabetes mellitus without complications, R20.2 - Paresthesia of skin Medications: Changed From temazepam 1 cap PO BEDTIME 30 days 30 caps 0RF To temazepam 15 mg PO BEDTIME 30 days 30 caps 0RF Coding Level of Care Code Est Pt Level 4 (15296) Diagnoses Atherosclerosis of [place] coronary artery of [place] heart without angina pectori s I25.10 Coronary Disease-Associated Artery/Lesion type: [place] artery [place] vs. 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
== END 2023-02-13 17:45 | disposition home or self-care (01) ==
PROVIDERS: PCP Nurse Practitioner Family; Visit Provider Internal Medicine
DX: E11.59 Type 2 diabetes mellitus with other circulatory complications (principal)
CPT/HCPCS: 83036; 99214

== ENCOUNTER 2023-02-15 10:36 | Outpatient (REF) | payer OTHER, SELFPAY ==
[2023-02-15 10:56] LABS: MANUAL DIFF FLAG NO
[2023-02-15 11:19] LABS: Appearance Urine Cloudy; Color Urine Dark Yellow; Glucose Urine UA Negative (Negative); Leukocyte Esterase Urine Negative (Negative); Nitrite Urine Negative (Negative); PH 5.5 (5.0-9.0); Specific Gravity - Urine >= 1.030 (1.005-1.025); UMIC TRIGGER UACC YES; Urine Blood Negative (Negative); Urine Ketones Trace mg/dL (Negative); Urine Protein 100 (2+) mg/dL (Neg-Trace)
[2023-02-15 11:31] LABS: Basophils Absolute Auto 0.1 X10*3/uL (0.0-0.2); Basophils Percent Auto 1.3 % (0-2); Eosinophils Absolute Auto 0.2 X10*3/uL (0.0-0.4); Eosinophils Percent Auto 2.1 % (0-4); Hematocrit 42.3 % (42.0-52.0); Hemoglobin 13.6 g/dl (14.0-18.0); Imm Gran Abs Auto 0.04 X10*3/uL (0.00-0.03); Imm Gran Pct Auto 0.5 % (0.0-0.4); Lymphocytes Absolute Auto 1.4 X10*3/uL (1.2-4.9); Lymphocytes Percent Auto 16.1 % (20-40); Mean Corpuscular HGB Conc 32.2 g/dl (31.0-36.0); Mean Corpuscular Hemoglobin 32.4 pg (27.0-33.0); Mean Corpuscular Volume 100.7 fL (80.0-98.0); Mean Platelet Volume 9.8 fL (9.4-12.4); Monocytes Absolute Auto 0.5 X10*3/uL (0.1-1.2); Monocytes Percent Auto 6.2 % (2-11); Neutrophils Absolute Auto 6.2 x10*3/uL (2.0-8.3); Neutrophils Percent Auto 73.8 % (45-73); Platelet Count 330 X10*3/uL (160-400); Red Cell Distribution Width 13.5 % (11.0-16.0); White Blood Count 8.4 X10*3/uL (4.8-10.8)
[2023-02-15 11:35] LABS: Bacteria Urine None Seen (None Seen); WBC Urine 0-5 /HPF (0-5)
[2023-02-15 12:05] LABS: Microalbum/Creatinine Ratio Ur 21.5 ug/mg cr (<30)
[2023-02-15 12:15] LABS: Alanine Aminotransferase 21 U/L (0-40); Albumin Level 3.9 g/dL (3.5-5.0); Alkaline Phosphatase 87 U/L (39-117); Anion Gap 11 (12-20); Aspartate Amino Transferase 30 U/L (5-37); Bilirubin Total 0.6 mg/dL (0.0-1.0); Blood Urea Nitrogen 10 mg/dL (9-16); Calcium 9.7 mg/dL (8.4-10.2); Carbon Dioxide 28 mmol/L (22-29); Chloride 103 mmol/L (96-108); Cholesterol 118 mg/dL (<200); Estimated Glomerular Filt Rate > 60; Glucose Fasting 131 mg/dL (60-99); HDL Cholesterol 28 mg/dL (>40); LDL Cholesterol Calculated 72 mg/dL (<100); Magnesium 2.7 mg/dL (1.6-2.6); Potassium 4.2 mmol/L (3.3-5.1); Sodium 138 mmol/L (135-145); Total Protein 7.9 g/dL (6.5-8.0); Triglycerides 90 mg/dL (<150)
[2023-02-15 12:34] LABS: TSH reflex Free T4 1.45 uIU/mL (0.32-4.0); Vitamin D 25-OH Total 15.5 ng/mL (>30)
[2023-02-15 12:39] LABS: Folate 14.7 ng/mL (> or = 4.0); Vitamin B12 525 pg/mL (200-900)
[2023-02-17 07:09] LABS: C Peptide 5.38 ng/mL (0.80-3.85)
[2023-02-19 19:33] LABS: Glutamic acid decarboxylase Ab <5 IU/mL (<5)
== END 2023-02-15 10:37 | disposition home or self-care (01) ==
LOC: HO.LAB 10:36
PROVIDERS: PCP Nurse Practitioner Family; Visit Provider Internal Medicine
DX: E78.00 Pure hypercholesterolemia, unspecified (principal); R20.2 Paresthesia of skin; E53.8 Deficiency of other specified B group vitamins; E11.9 Type 2 diabetes mellitus without complications; E55.9 Vitamin D deficiency, unspecified; I10 Essential (primary) hypertension; E83.42 Hypomagnesemia; R30.0 Dysuria
CPT/HCPCS: 36415; 80053; 80061; 81001; 82043; 82306; 82570; 82607; 82746; 83735; 84443; 84681; 85025; 86341

== ENCOUNTER 2023-04-08 13:54 | Outpatient (AMB) | payer OTHER, SELFPAY ==
--- NOTE | 2023-04-08 13:58 | MHC.PC.OV ---
Vital Signs 04/08/23 14:00 Height 5 ft 6 in Weight 160 lb 8 oz BMI 25.9 BP 120/74 Blood Pressure Location Lt brachial Position Sitting Pulse 74 Pulse Source Pulse Oximeter Pulse Oximetry (%) 100 Oxygen Delivery Method Room Air Intake Visit Reasons: DM, Cardiomyopathy Intake Note: Patient is here to follow up on DM, Cardiomyopathy. Complaint of coughing and wheezing for the last two weeks. Cardiovascular Invasive Specialist Required: No Mathematics Improvement Teacher: Not Required per policy Accompanied by: Self / Same As Patient Allergies adhesive tape Allergy (Severe, Verified 04/08/23 14:35) Rash from medical tape chlorhexidine [CHLORHEXIDINE] Allergy (Intermediate, Verified 04/08/23 14:35) RASH,HIVES latex Allergy (Verified 04/08/23 14:35) Unknown Medication List - Last Reconciled 04/08/23 by Paul Romero MD albuterol sulfate 90 mcg/actuation 1 inh inhalation QID PRN aspirin 81 mg PO DAILY atorvastatin 80 mg PO BEDTIME azithromycin take 500 mg today (day 1), then 250 mg for 4 days (days 2-5) PO blood sugar diagnostic ([employer] Ultra Test strips) As directed blood-glucose meter (DerbywireTouch Ultra2 Meter kit) As directed capecitabine 1,500 mg (3 x 500 mg) PO BID diphenhydramine HCl (Banophen) 25 mg PO DAILY PRN folic acid 1 mg PO DAILY insulin aspart U-100 (Novolog FlexPen U-100 Insulin aspart) 10 units (0.1 mL) subcut TID insulin glargine (Lantus Solostar U-100 Insulin) 25 units (0.25 mL) subcut BEDTIME lancets (FreeStyle Lancets) TEST 3 TIMES DAILY lancets (DerbywireTouch Delica Lancets) As directed metoprolol succinate ER 50 mg PO DAILY oxycodone 5 mg PO BID PRN pen needle, diabetic (BD Ultra-Fine Short Pen Needle) four times a day pyridoxine (vitamin B6) 50 mg PO DAILY sacubitril-valsartan 24-26 mg (Entresto) 1 tab PO BID temazepam 15 mg PO BEDTIME 30 days thiamine HCl (vitamin B1) 100 mg PO BID ticagrelor (Brilinta) 90 mg PO Q12H tramadol 50 mg PO BEDTIME PRN Tobacco use date assessed: 04/08/23 Fall risk assessment: No Falls in past year Last assessed Fall Risk: 04/08/23 Dental Screening Dental Screen Date: 04/08/23 Did you have a dental visit in the last 12 months?: No Did you have a dental problem in the last 6 months where you did not have access to dental care?: No Was dental information given to patient?: No HPI DM, Cardiomyopathy HPI Details 72-year-old male presents to the office to discuss his chronic medical conditions. Patient comes alone to the office. For the last week he has been suffering with a productive cough, wheezing and shortness of breath. No fevers or chills. No family members sick. His cardiac condition is stable and continuing the prescribed medications. Sleeping well at night. Blood sugars are under reasonable control. Did not bring his machine to check. Cancer condition is stable and continues to see his oncologist. 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 Mother Mouth cancer Sister Breast cancer Social History Household Members: Children Housing: Apartment Are you a primary career law clerk to a significant other at home: No Do you presently have visiting nurse or other home services: Yes Alcohol intake: current Alcohol intake frequency: a few times a week Alcohol type: beer Patient Tobacco Use Status: Never used Tobacco e-Cigarette/Vaping Use: Never Used Second Hand Smoke Exposure: No service: No Current occupational status: disabled Cognitive needs: Yes (cane) Hearing needs: No Vision needs: Yes (glasses) Questionnaire PHQ-9 Over the last 2 weeks, how often have you been bothered by any of the following problems? 1. Little interest or pleasure in doing things: not at all 2. Feeling down, depressed, or hopeless: not at all 3. Trouble falling or staying asleep, or sleeping too much: not at all 4. Feeling tired or having little energy: not at all 5. Poor appetite or overeating: not at all 6. Feeling bad about yourself - or that you are a failure or have let yourself or your family down: not at all 7. Trouble concentrating on things, such as reading the newspaper or watching television: not at all 8. Moving or speaking so slowly that other people could have noticed. Or the opposite - being so fidgety or restless that you have been moving around a lot more than usual: not at all 9. Thoughts that you would be better off or of hurting yourself in some way: not at all Total score: 0 Depression Screening Interpretation: Negative Depression Screening Done: Yes Source: Developed by Drs. Chintan Mirza, Vilma Naylor, Kris Du and colleagues, with an educational ioana from [employer]. Thrive Questionnaire Date Thrive assessed: 04/08/23 I am a: Patient What is your living situation today?: I have a steady place to live Within the past 12 months, did the food you bought not last and you didn't have the money to get more?: Never true Within the past 12 months, did you worry whether your food would run out before you got money to buy more?: Never true Do you have trouble paying for medicines?: No Do you have trouble getting transportation to medical appointments?: No Do you have trouble paying your heating and electricity bill?: No Do you have trouble taking care of your child, family member or friend?: No Do you have trouble with day-to-day activities such as bathing, preparing meals, shopping, managing finances, etc.?: No Are you currently unemployed and looking for a job?: No Are you interested in more education?: No Currently or been in a relationship where the following occur: no concerns reported THRIVE Score: 0 AUDIT C Alcohol Use Questionnaire (AUDIT-C) 1. How often do you have a drink containing alcohol?: 2-3 times a week 2. How many drinks containing alcohol do you have on a typical day when you are drinking?: 1 or 2 Total Score: 3 CAL-7 AMB Questionnaire CAL-7 Date CAL - 7 assessed: 04/08/23 Feeling nervous, anxious, or on edge: 0 = Not at all Not being able to stop or control worryin = Not at all Worrying too much about different things: 0 = Not at all Trouble relaxin = Not at all Being so restless that it is hard to sit still: 0 = Not at all Becoming easily annoyed or irritable: 0 = Not at all Feeling afraid as if something awful might happen: 0 = Not at all Total CAL-7 score (0-4 normal; 5-9 mild; 10-14 moderate; 15-21 severe): 0 Source: Developed by Drs. Chintan Mirza, Vilma Naylor, Kris Du and colleagues, with an educational ioana from [employer]. Physical exam (Primary Care) Vital Signs: Last Vital Signs Pulse 74 04/08/23 14:00 BP 120/74 04/08/23 14:00 Pulse Ox 100 04/08/23 14:00 Oxygen Delivery Method Room Air 04/08/23 14:00 BMI result Body Mass Index 25.9 Tobacco/Smoking Status: Tobacco use Status Tobacco use date assessed 04/08/23 04/08/23 14:08 Patient Tobacco Use Status Never used Tobacco 04/08/23 14:08 e-Cigarette/Vaping Use Never Used 04/08/23 14:08 PHQ-9: PHQ-9 Score PHQ-9: Total score 0 04/08/23 14:08 Depression Screening Interpretation: Negative Thrive Assessment: Date of Thrive Assessment Date Thrive assessed 04/08/23 04/08/23 14:08 Currently or been in a relationship where the following occur: no concerns reported Const General: cooperative and healthy appearing Nutritional Appearance: well nourished Orientation/consciousness: patient oriented x3 Limitations: no limitations HENMT Head: Yes normal to inspection Eyes General: appearance normal, both eyes and all related structures Neck Neck: Yes normal visual inspection Chest Chest palpation & inspection: normal palpation of entire chest wall Resp Effort & Inspection: normal respiratory effort Neuro General: patient oriented x3 Results AMB Hemoglobin A1c AMB Hemoglobin A1c 6.6 % Last Edit by ROSA Arceo on 04/08/23 14:32 Assessment and Plan Assessment & Plan (1) 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 (2) Type 2 diabetes mellitus with other circulatory complications: Code(s): E11.59 - Type 2 diabetes mellitus with other circulatory complications Plan: A1c is 6.6. Continue current medications (3) Cardiomyopathy: Code(s): I42.9 - Cardiomyopathy, unspecified Qualifiers: Cardiomyopathy type: unspecified Qualified Code(s): I42.9 - Cardiomyopathy, unspecified (4) Upper respiratory tract infection: Code(s): J06.9 - Acute upper respiratory infection, unspecified Plan Azithromycin and albuterol inhaler called in. 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
[2023-04-08 14:00] VITALS: BP 120/74; PULSE 74; O2SAT 100; BMI 25.9
== END 2023-04-08 15:44 | disposition home or self-care (01) ==
PROVIDERS: PCP Nurse Practitioner Family; Visit Provider Internal Medicine
DX: C20 Malignant neoplasm of rectum (principal); C78.7 Secondary malignant neoplasm of liver and intrahepatic bile duct; E11.59 Type 2 diabetes mellitus with other circulatory complications; I42.9 Cardiomyopathy, unspecified; J06.9 Acute upper respiratory infection, unspecified
CPT/HCPCS: 83036; 99214

== ENCOUNTER 2023-08-13 14:23 | Outpatient (AMB) | payer OTHER, SELFPAY ==
--- NOTE | 2023-08-13 14:26 | A.OFFPC_ITS ---
Vital Signs 08/13/23 14:28 Height 5 ft 6 in Weight 167 lb 2 oz BMI 27.0 BP 110/68 Blood Pressure Location Lt brachial Position Sitting Pulse 71 Pulse Source Pulse Oximeter Pulse Oximetry (%) 98 Oxygen Delivery Method Room Air Intake Visit Reasons: Overdue follow up Intake Note: Patient is here to follow up on DM, Chronic pain, Cardiomyopathy. Complaint of left leg pain Loom Fixer Apprentice Required: No Data Warehousing Manager: Not Required per policy Accompanied by: Self / Same As Patient Allergies adhesive tape Allergy (Severe, Verified 08/13/23 17:12) Rash from medical tape chlorhexidine [CHLORHEXIDINE] Allergy (Intermediate, Verified 08/13/23 17:12) RASH,HIVES latex Allergy (Verified 08/13/23 17:12) Unknown Medication List - Last Reconciled 08/13/23 by Paul Romero MD albuterol sulfate 90 mcg/actuation 1 inh inhalation QID PRN aspirin 81 mg PO DAILY atorvastatin 80 mg PO BEDTIME blood sugar diagnostic ([employer] Ultra Test strips) As directed blood-glucose meter ([employer] Ultra2 Meter kit) As directed diphenhydramine HCl (Banophen) 25 mg PO DAILY PRN folic acid 1 mg PO DAILY lancets ([employer] InsightTouch Delica Lancets) As directed lisinopril 20 mg PO DAILY metoprolol succinate ER 50 mg PO DAILY oxycodone 5 mg PO BID PRN pen needle, diabetic (BD Ultra-Fine Short Pen Needle) four times a day pyridoxine (vitamin B6) 50 mg PO DAILY sacubitril-valsartan 24-26 mg (Entresto) 1 tab PO BID temazepam 15 mg PO BEDTIME 30 days thiamine HCl (vitamin B1) 100 mg PO BID ticagrelor (Brilinta) 90 mg PO Q12H tramadol 50 mg PO BEDTIME PRN Tobacco use date assessed: 08/13/23 Fall risk assessment: No Falls in past year Last assessed Fall Risk: 08/13/23 Dental Screening Dental Screen Date: 04/08/23 HPI Overdue follow up HPI Details 73-year-old male presents to the office to discuss his chronic medical conditions. Patient is compliant with medications. Chemotherapy begins next week again. He is taking Lantus regularly though it has not listed in the medication list. Complains of lower extremity pain. Has been taking opiates for the same. 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 Mother Mouth cancer Sister Breast cancer Social History Household Members: Children Housing: Apartment Are you a primary skin care instructor to a significant other at home: No Do you presently have visiting nurse or other home services: Yes Alcohol intake: current Alcohol intake frequency: a few times a week Alcohol type: beer Patient Tobacco Use Status: Never used Tobacco e-Cigarette/Vaping Use: Never Used Second Hand Smoke Exposure: No service: No Current occupational status: disabled Cognitive needs: Yes (cane) Hearing needs: No Vision needs: Yes (glasses) Questionnaire Thrive Questionnaire Date Thrive assessed: 04/08/23 ACL-7 AMB Questionnaire CAL-7 Date CAL - 7 assessed: 04/08/23 Source: Developed by Drs. Chintan Mirza, Vilma Naylor, Kris Du and colleagues, with an educational ioana from [employer]. Physical exam (Primary Care) Vital Signs: Last Vital Signs Pulse 71 08/13/23 14:28 BP 110/68 08/13/23 14:28 Pulse Ox 98 08/13/23 14:28 Oxygen Delivery Method Room Air 08/13/23 14:28 Care Plan Goal for BP management: Blood pressure is in range. BMI result Body Mass Index 27.0 Tobacco/Smoking Status: Tobacco use Status Tobacco use date assessed 08/13/23 08/13/23 14:36 Patient Tobacco Use Status Never used Tobacco 08/13/23 14:36 e-Cigarette/Vaping Use Never Used 08/13/23 14:36 Thrive Assessment: Date of Thrive Assessment Date Thrive assessed 04/08/23 08/13/23 14:36 Const General: cooperative and healthy appearing Nutritional Appearance: well nourished Orientation/consciousness: patient oriented x3 Limitations: no limitations HENMT Head: Yes normal to inspection Eyes General: appearance normal, both eyes and all related structures Neck Neck: Yes normal visual inspection Chest Chest palpation & inspection: normal palpation of entire chest wall Resp Effort & Inspection: normal respiratory effort Neuro General: patient oriented x3 Results AMB Hemoglobin A1c AMB Hemoglobin A1c 6.9 % Last Edit by ROSA Arceo on 08/13/23 14:41 Results Reviewed Results Reviewed: Laboratory Last Values Hgb A1c (Clinic) 6.9 % (4.0-6.0) H 08/13/23 14:25 Assessment and Plan Assessment & Plan (1) Type 2 diabetes mellitus with other circulatory complications: Code(s): E11.59 - Type 2 diabetes mellitus with other circulatory complications Plan: A1c is 6.9. Continue Lantus at the same dosage. 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 Patient is seeing the oncologist regularly. Upcoming chemotherapy. (3) Cardiomyopathy: Code(s): I42.9 - Cardiomyopathy, unspecified Qualifiers: Cardiomyopathy type: unspecified Qualified Code(s): I42.9 - Cardiomyopathy, unspecified Plan: Patient saw the contract technician. 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 Continue current regimen. 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
[2023-08-13 14:28] VITALS: BP 110/68; PULSE 71; O2SAT 98; BMI 27.0
== END 2023-08-13 15:02 | disposition home or self-care (01) ==
PROVIDERS: PCP Nurse Practitioner Family; Visit Provider Internal Medicine
DX: E11.59 Type 2 diabetes mellitus with other circulatory complications (principal); C20 Malignant neoplasm of rectum; C78.7 Secondary malignant neoplasm of liver and intrahepatic bile duct; I42.9 Cardiomyopathy, unspecified; G89.29 Other chronic pain
CPT/HCPCS: 83036; 99214; G2211

== ENCOUNTER 2023-10-16 15:06 | Outpatient (AMB) | payer OTHER, SELFPAY ==
[2023-10-16 15:19] VITALS: BP 120/62; PULSE 64; O2SAT 98; BMI 27.4
--- NOTE | 2023-10-16 15:19 | A.OFFPC_ITS ---
Vital Signs 10/16/23 15:19 Height 5 ft 6 in Weight 170 lb BMI 27.4 BP 120/62 Blood Pressure Location Lt brachial Position Sitting Pulse 64 Pulse Source Pulse Oximeter Pulse Oximetry (%) 98 Oxygen Delivery Method Room Air Intake Visit Reasons: 2mth f/u Optical Instrument Inspector Required: No Allergies adhesive tape Allergy (Severe, Verified 10/16/23 16:16) Rash from medical tape chlorhexidine [CHLORHEXIDINE] Allergy (Intermediate, Verified 10/16/23 16:16) RASH,HIVES latex Allergy (Verified 10/16/23 16:16) Unknown Medication List - Last Reconciled 10/16/23 by Paul Romero MD albuterol sulfate 90 mcg/actuation 1 inh inhalation QID PRN aspirin 81 mg PO DAILY atorvastatin 80 mg PO BEDTIME blood sugar diagnostic ([employer] Ultra Test strips) As directed blood-glucose meter ([employer] Ultra2 Meter kit) As directed diphenhydramine HCl (Banophen) 25 mg PO DAILY PRN folic acid 1 mg PO DAILY insulin glargine (Lantus Solostar U-100 Insulin) 14 units (0.14 mL) subcut QPM lancets (Pin or PegTouch Delica Lancets) As directed lisinopril 20 mg PO DAILY metoprolol succinate ER 50 mg PO DAILY oxycodone 5 mg PO BID PRN pen needle, diabetic (BD Ultra-Fine Short Pen Needle) four times a day pyridoxine (vitamin B6) 50 mg PO DAILY sacubitril-valsartan 24-26 mg (Entresto) 1 tab PO BID temazepam 15 mg PO BEDTIME 30 days thiamine HCl (vitamin B1) 100 mg PO BID ticagrelor (Brilinta) 90 mg PO Q12H tramadol 50 mg PO BEDTIME PRN Tobacco use date assessed: 08/13/23 Fall risk assessment: No Falls in past year Last assessed Fall Risk: 10/16/23 Dental Screening Dental Screen Date: 04/08/23 Did you have a dental visit in the last 12 months?: Yes Did you have a dental problem in the last 6 months where you did not have access to dental care?: No Was dental information given to patient?: Patient has dentist HPI 2mth f/u HPI Details 73-year-old male presents to the office to discuss his chronic medical conditions. His son is translating. Patient is reporting intermittent pain behind the right ear for the past month. No discharge from the ear. No symptoms of a running nose or cold, cough etcetera. Blood sugars are well controlled. Currently has been scheduled for physical therapy for pain in the right hip. 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 Mother Mouth cancer Sister Breast cancer Social History Household Members: Children Housing: Apartment Are you a primary career technical education teacher to a significant other at home: No Do you presently have visiting nurse or other home services: Yes Alcohol intake: current Alcohol intake frequency: a few times a week Alcohol type: beer Patient Tobacco Use Status: Never used Tobacco e-Cigarette/Vaping Use: Never Used Second Hand Smoke Exposure: No service: No Current occupational status: disabled Cognitive needs: Yes (cane) Hearing needs: No Vision needs: Yes (glasses) Questionnaire Thrive Questionnaire Date Thrive assessed: 04/08/23 AUDIT C Alcohol Use Questionnaire (AUDIT-C) 1. How often do you have a drink containing alcohol?: 2-3 times a week 2. How many drinks containing alcohol do you have on a typical day when you are drinking?: 1 or 2 3. How often do you have six or more drinks on one occasion?: Never Total Score: 3 CAL-7 AMB Questionnaire CAL-7 Date CAL - 7 assessed: 04/08/23 Source: Developed by Drs. Chintan Mirza, Vilma Naylor, Kris Du and colleagues, with an educational ioana from [employer]. Physical exam (Primary Care) Vital Signs: Last Vital Signs Pulse 64 10/16/23 15:19 BP 120/62 10/16/23 15:19 Pulse Ox 98 10/16/23 15:19 Oxygen Delivery Method Room Air 10/16/23 15:19 BMI result Body Mass Index 27.4 Tobacco/Smoking Status: Tobacco use Status Tobacco use date assessed 08/13/23 10/16/23 15:29 Patient Tobacco Use Status Never used Tobacco 10/16/23 15:29 e-Cigarette/Vaping Use Never Used 10/16/23 15:29 Thrive Assessment: Date of Thrive Assessment Date Thrive assessed 04/08/23 10/16/23 15:29 Const General: cooperative and healthy appearing Nutritional Appearance: well nourished Orientation/consciousness: patient oriented x3 Limitations: no limitations HENMT Head: Yes normal to inspection Eyes General: appearance normal, both eyes and all related structures Neck Neck: Yes normal visual inspection Chest Chest palpation & inspection: normal palpation of entire chest wall Resp Effort & Inspection: normal respiratory effort Neuro General: patient oriented x3 Results AMB Hemoglobin A1c AMB Hemoglobin A1c 6.9 % Last Edit by ROSA Tai on 10/16/23 15:33 Results Reviewed Results Reviewed: Laboratory Last Values Hgb A1c (Clinic) 6.9 % (4.0-6.0) H 10/16/23 13:40 Assessment and Plan Assessment & Plan (1) Type 2 diabetes mellitus with other circulatory complications: Code(s): E11.59 - Type 2 diabetes mellitus with other circulatory complications Plan: Amoxicillin called in. If symptoms not better to follow-up here. (2) Right otitis media: Code(s): H66.91 - Otitis media, unspecified, right ear Plan A1c is in range. Continue medications at same dosage. Orders: Orders AMB Hemoglobin A1c Today E11.59 - Type 2 diabetes mellitus with other circulatory complications Coding Level of Care Code Est Pt Level 3 (64988) Diagnoses Type 2 diabetes mellitus with other circulatory complications E11.59 Right otitis media H66.91
== END 2023-10-16 16:05 | disposition home or self-care (01) ==
PROVIDERS: PCP Internal Medicine; Visit Provider Internal Medicine
DX: E11.59 Type 2 diabetes mellitus with other circulatory complications (principal); H66.91 Otitis media, unspecified, right ear
CPT/HCPCS: 83036; 99213

== ENCOUNTER 2023-11-18 10:22 | Outpatient (AMB) | payer OTHER, SELFPAY ==
--- NOTE | 2023-11-18 10:26 | MHC.PC.OV ---
Vital Signs 11/18/23 10:30 Height 5 ft 6 in Weight 164 lb BMI 26.5 BP 110/70 Blood Pressure Location Rt brachial Position Sitting Pulse 74 Pulse Source Pulse Oximeter Pulse Oximetry (%) 97 Oxygen Delivery Method Room Air Intake Visit [place] [facility] [place] chest pain Intake Note: Patient is here to follow-up after a visit the emergency department at [facility] on 11/04/23. 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 Language: Commanding Officer Garage Name: Tal (son) Information Interpreted: non-clinical & clinical Clip Loading Machine Feeder: Present Accompanied by: Son Allergies adhesive tape Allergy (Severe, Verified 11/18/23 10:28) Rash from medical tape chlorhexidine [CHLORHEXIDINE] Allergy (Intermediate, Verified 11/18/23 10:28) RASH,HIVES latex Allergy (Verified 11/18/23 10:28) Unknown Medication List - Last Reconciled 11/19/23 by Paul Romero MD albuterol sulfate 90 mcg/actuation 1 inh inhalation QID PRN aspirin 81 mg PO DAILY atorvastatin 80 mg PO BEDTIME blood sugar diagnostic (AudioBoouch Ultra Test strips) As directed blood-glucose meter (AudioBoouch Ultra2 Meter kit) As directed diphenhydramine HCl (Banophen) 25 mg PO DAILY PRN folic acid 1 mg PO DAILY insulin glargine (Lantus Solostar U-100 Insulin) 14 units (0.14 mL) subcut QPM lancets (AudioBoouch Delica Lancets) As directed lisinopril 20 mg PO DAILY metoprolol succinate ER 50 mg PO DAILY oxycodone 5 mg PO BID PRN pen needle, diabetic (BD Ultra-Fine Short Pen Needle) four times a day pyridoxine (vitamin B6) 50 mg PO DAILY sacubitril-valsartan 24-26 mg (Entresto) 1 tab PO BID temazepam 15 mg PO BEDTIME 30 days thiamine HCl (vitamin B1) 100 mg PO BID ticagrelor (Brilinta) 90 mg PO Q12H tramadol 50 mg PO BEDTIME PRN Tobacco use date assessed: 11/18/23 Fall risk assessment: No Falls in past year Last assessed Fall Risk: 11/18/23 Dental Screening Dental Screen Date: 04/08/23 HPI [facility] [place] 9 chest pain HPI Details 73-year-old male presents to the office after recent discharge from the emergency room. He is accompanied by his son who is translating. Patient was seen at the [facility] emergency room with complaints of chest pain. Blood work, EKG and observation ruled out cardiac etiology for the symptoms. Patient was discharged with no change to his medications. Patient reports no further symptoms and has returned back to baseline state of health. He is scheduled for chemotherapy in the coming weeks. Able to function and do activities of daily living. 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 Mother Mouth cancer Sister Breast cancer Social History Household Members: Children Housing: Apartment Are you a primary healthcare recruiter to a significant other at home: No Do you presently have visiting nurse or other home services: Yes Alcohol intake: current Alcohol intake frequency: a few times a week Alcohol type: beer Patient Tobacco Use Status: Never used Tobacco e-Cigarette/Vaping Use: Never Used Second Hand Smoke Exposure: No service: No Current occupational status: disabled Cognitive needs: Yes (cane) Hearing needs: No Vision needs: Yes (glasses) Questionnaire Thrive Questionnaire Date Thrive assessed: 04/08/23 CAL-7 AMB Questionnaire CAL-7 Date CAL - 7 assessed: 04/08/23 Source: Developed by Drs. Chintan Mirza, Vilma Naylor, Kris Du and colleagues, with an educational ioana from [employer]. Physical exam (Primary Care) Vital Signs: Last Vital Signs Pulse 74 11/18/23 10:30 BP 110/70 11/18/23 10:30 Pulse Ox 97 11/18/23 10:30 Oxygen Delivery Method Room Air 11/18/23 10:30 BMI result Body Mass Index 26.5 Tobacco/Smoking Status: Tobacco use Status Tobacco use date assessed 11/18/23 11/18/23 10:38 Patient Tobacco Use Status Never used Tobacco 11/18/23 10:38 e-Cigarette/Vaping Use Never Used 11/18/23 10:38 Thrive Assessment: Date of Thrive Assessment Date Thrive assessed 04/08/23 11/18/23 10:38 Const General: cooperative and healthy appearing Nutritional Appearance: well nourished Orientation/consciousness: patient oriented x3 Limitations: no limitations HENMT Head: Yes normal to inspection Eyes General: appearance normal, both eyes and all related structures Neck Neck: Yes normal visual inspection Chest Chest palpation & inspection: normal palpation of entire chest wall Resp Effort & Inspection: normal respiratory effort Neuro General: patient oriented x3 Assessment and Plan Assessment & Plan (1) Chest pain: Code(s): R07.9 - Chest pain, unspecified Plan: 20 minutes spent reviewing the ER visit for the patient. Patient has returned to baseline state of health. Reassurance. Coding Level of Care Code Est Pt Level 4 (83776) Complex EM visit Add On G2211 Diagnoses Chest pain R07.9
[2023-11-18 10:30] VITALS: BP 110/70; PULSE 74; O2SAT 97; BMI 26.5
== END 2023-11-18 11:32 | disposition home or self-care (01) ==
PROVIDERS: PCP Internal Medicine; Visit Provider Internal Medicine
DX: R07.9 Chest pain, unspecified (principal)

== ENCOUNTER → 2023-11-18 10:22 | Outpatient (BNVA) | payer OTHER, SELFPAY | PROVIDERS: PCP Internal Medicine; Visit Provider Internal Medicine | DX: R07.9 Chest pain, unspecified (principal) | CPT/HCPCS: 99212 ==

== ENCOUNTER 2023-12-18 11:06 | Emergency (ER) | payer OTHER, SELFPAY ==
--- NOTE | ~2023-12-18 | XR_ITS ---
EXAMINATION: XR HIP, RIGHT CLINICAL INFORMATION: Fall off bed with hip strike COMPARISON: None available. TECHNIQUE: Two views of the right hip. AP pelvis. FINDINGS: No fracture. Alignment is anatomic. Hip joint space is maintained. Soft tissues are unremarkable. XR/XR hip RT w PEL1V IMPRESSION: Normal right hip. Electronically signed by: Joe Copeland MD 12/18/2023 02:36 PM EDT
--- NOTE | ~2023-12-18 | CT_ITS ---
EXAMINATION: CT HEAD WITHOUT CONTRAST CLINICAL INFORMATION: Trauma. Pain. COMPARISON: None available. TECHNIQUE: Contiguous axial imaging was performed from the skull base to vertex without intravenous administration of contrast. This CT examination was performed using dose optimization techniques as appropriate, variously including the following: *Automated exposure control *Adjustment of mA and/or kV according to patient size (this includes techniques or standardized protocols for targeted exams where dose is matched to indication/reason for exam; i.e. extremities or head) *Use of iterative reconstruction technique DLP: 741 mGy-cm FINDINGS: No intra or extra-axial fluid collection, hemorrhage, mass, or mass effect. There is prominence to the sulci and ventricles with what appears to be an old lacune, in the right basal ganglia extending to the lateral margin of the right lateral ventricle. The calvarium is intact. Note is made of extensive mucoperiosteal thickening with dystrophic calcification in the right maxillary sinus. Mild lobular mucosal thickening is seen within the left maxillary sinus. CT/CT head/brain wo IV con IMPRESSION: Chronic changes noted. No evidence for fracture or intracranial hemorrhage. Electronically signed by: Kris Liu MD 12/18/2023 03:22 PM EDT RP
--- NOTE | ~2023-12-18 | CT_ITS ---
EXAMINATION: CT PELVIS WITHOUT CONTRAST CLINICAL INFORMATION: Right hip pain. Concern for fracture. COMPARISON: None available. TECHNIQUE: Helical scanning was performed with submillimeter collimation through the pelvis. Sagittal and coronal multiplanar 2-D reconstructions were obtained. This CT examination was performed using dose optimization techniques as appropriate, variously including the following: *Automated exposure control *Adjustment of mA and/or kV according to patient size (this includes techniques or standardized protocols for targeted exams where dose is matched to indication/reason for exam; i.e. extremities or head) *Use of iterative reconstruction technique DLP: 247.19 mGy-cm FINDINGS: PELVIS: No fracture. Mild degenerative spurring of the superolateral acetabular rim. Sacroiliac joints and symphysis pubis are normal. No acute intrapelvic abnormality. Multilevel degenerative spondylosis spine. CT/CT pelvis wo IV con IMPRESSION: 1. No acute abnormality. No fracture. 2. Mild degenerative changes of the acetabulum. Electronically signed by: Gerardo Kidd MD 12/18/2023 03:57 PM EDT
--- NOTE | ~2023-12-18 | CT_ITS ---
EXAMINATION: CT CERVICAL SPINE WITHOUT CONTRAST CLINICAL INFORMATION: Fall. Pain. COMPARISON: None available. TECHNIQUE: Axial images obtained through cervical spine. Coronal and sagittal reformatted images are performed at CT scanner This CT examination was performed using dose optimization techniques as appropriate, variously including the following: *Automated exposure control *Adjustment of mA and/or kV according to patient size (this includes techniques or standardized protocols for targeted exams where dose is matched to indication/reason for exam; i.e. extremities or head) *Use of iterative reconstruction technique DLP: 486.1 mGy-cm FINDINGS: Cervical vertebrae have normal alignment and height. No fracture. No prevertebral soft tissue swelling. Multilevel degenerative spondylosis. Disc height narrowing and vertebral endplate spurring most significant at C6-C7. Multilevel facet joint arthrosis bilaterally most significant at the upper cervical spine. Near complete opacification of the right maxillary sinus. Lobular mucosal thickening, retention cyst, left maxillary sinus. CT/CT cervical spine wo IV con IMPRESSION: 1. No acute abnormality. 2. Multilevel degenerative spondylosis of cervical spine. Fleischner guidelines were followed. Electronically signed by: Gerardo Kidd MD 12/18/2023 03:53 PM EDT
[2023-12-18 11:18] VITALS: BP 105/66; PULSE 65; RESP 19; TEMP 36.6; O2SAT 98; BMI 27.8
--- NOTE | 2023-12-18 11:20 | ED_ITS ---
HPI - Fall General Chief Complaint: Fall Stated Complaint: fall-l side face inj Time Seen by Provider: 12/18/23 13:05 Source: patient and family (patient's son) Mode of arrival: ambulatory Limitations: no limitations History of Present Illness ED Provider: Helga Fuchs PA-C HPI Narrative: Patient is a 73 year old assigned male at with a history of DM, metastatic rectal cancer, GERD, and cardiomyopathy presenting to the emergency department today with right hip pain. Patient states that 2 days ago he fell out of bed and landed on his right buttock. Patient states that ever since it is painful to walk. Patient denies any dizziness, lightheadedness, abdominal pain, nausea, vomiting, fever, chills, blurry vision, double vision, loss of vision, chest pain, difficulty breathing, shortness of breath, back pain, night sweats, pain with urination, increased urinary frequency, increased urinary urgency, blood in his urine or stool, syncope or a near syncopal episode, bowel incontinence, bladder incontinence, or any other complaints at this time. Onset (ago): day(s) (2) Prolonged down time: no Symptoms prior to fall: none Related Data Home Medications ?Medication ?Instructions ?Recorded ?Confirmed aspirin 81 mg tablet,delayed 81 mg PO DAILY 02/06/23 09/09/23 release atorvastatin 80 mg tablet 80 mg PO BEDTIME 02/06/23 09/09/23 folic acid 1 mg tablet 1 mg PO DAILY 02/06/23 09/09/23 pyridoxine (vitamin B6) 50 mg 50 mg PO DAILY 02/06/23 09/09/23 tablet thiamine HCl (vitamin B1) 100 mg 100 mg PO BID 02/06/23 09/09/23 tablet ticagrelor 90 mg tablet (Brilinta) 90 mg PO Q12H 02/06/23 09/09/23 lisinopril 20 mg tablet 20 mg PO DAILY 08/13/23 09/09/23 Previous Rx's ?Medication ?Instructions ?Recorded diphenhydramine HCl 25 mg tablet 25 mg PO DAILY PRN Insomnia #50 10/31/20 (Banophen) tabs blood sugar diagnostic (OneTouch #100 ea 03/22/22 Ultra Test strips) blood-glucose meter (OneTouch #1 ea 03/22/22 Ultra2 Meter kit) lancets 33 gauge (OneTouch Delica #100 ea 03/22/22 Lancets) pen needle, diabetic 31 gauge x #100 ea 03/22/2207/17 (BD Ultra-Fine Short Pen Needle) metoprolol succinate 50 mg 50 mg PO DAILY #90 tabs 07/24/22 tablet,extended release 24 hr sacubitril 24 mg-valsartan 26 mg 1 tab PO BID #60 tabs 03/20/23 tablet (Entresto) albuterol sulfate 90 mcg/actuation 1 inh inhalation QID PRN shortness 04/08/23 aerosol inhaler of breath or wheezing #6.7 grams insulin glargine 100 unit/mL (3 14 unit (0.14 mL) subcut QPM #15 mL 08/13/23 mL) subcutaneous pen (Lantus Solostar U-100 Insulin) tramadol 50 mg tablet 50 mg PO BEDTIME PRN Pain #30 tabs 10/16/23 oxycodone 5 mg tablet 5 mg PO BID PRN Pain #30 tabs 12/18/23 temazepam 15 mg capsule 15 mg PO BEDTIME 30 days #30 caps 12/18/23 Allergies Allergy/AdvReac Type Severity Reaction Status Date / Time adhesive tape Allergy Severe Rash from Verified 12/18/23 11:20 medical tape chlorhexidine [CHLORHEXIDINE] Allergy Intermediate RASH,HIVES Verified 12/18/23 11:20 latex Allergy Unknown Verified 12/18/23 11:20 Review of Systems Constitutional: Constitutional: Reports no additional constitutional complaints, Denies chills, Denies fever(s) and Denies night sweats Eyes: Eyes: Reports no additional eye complaints, Denies blurry vision, Denies change in vision, Denies diplopia, Denies eye discharge, Denies loss of vision and Denies eye pain ENT: Denies dizziness Cardiovascular: Cardiovascular: Reports no additional cardiovascular complaints, Denies chest pain, Denies lightheadedness, Denies Loss of Consciousness and Denies dyspnea Respiratory: Respiratory: Reports no additional respiratory complaints and Denies dyspnea Gastrointestinal: Gastrointestinal: Reports no additional gastrointestinal complaints, Denies abdominal pain, Denies melena, Denies hematochezia, Denies change in bowel habits and Denies change in stool character Genitourinary: Genitourinary: Reports no additional male genitourinary complaints, Denies hematuria, Denies oliguria, Denies difficulty urinating, Denies dysuria, Denies urinary frequency, Denies urinary hesitancy, Denies urinary incontinence and Denies urinary urgency Musculoskeletal: Musculoskeletal: Reports no additional musculoskeletal complaints, Denies numbness and Denies tingling Comments: right hip pain Neurologic: Denies dizziness, Denies loss of vision, Denies numbness and Denies tingling Psychiatric: Psychiatric: Reports no additional psychiatric complaints Endocrine: Endocrine: Reports no additional endocrine complaints Hematologic/Lymphatic: Hematologic/Lymphatic: Reports no additional hematologic/lymphatic complaints Allergic/Immunologic: Allergic/Immunologic: Reports no additional allergic/immunologic complaints [facility] Past Medical History Attestation statement: The following information was validated with the patient. (all information validated with the patient's son) Source: old records reviewed, obtained from family (patient's son provided additional history and confirmed the history provided by the patient.) and nursing notes reviewed Medical History Constipation Alcohol abuse Insomnia Coronary atherosclerosis Cancer Acute insomnia Acquired polyneuropathy penitentiary (current) use of insulin Type 2 diabetes mellitus with other circulatory complications Gastro-esophageal reflux disease without esophagitis H/O alcohol abuse Depression, major, recurrent, moderate Borderline hyperlipidemia Benign hypertension History of alcoholism History of prostate cancer Chronic back pain Skin rash History of conjunctivitis Dyslipidemia GERD (gastroesophageal reflux disease) History of CVA (cerebrovascular accident) Diabetes Hypertension Surgical History History of colon surgery H/O prostatectomy Family History Family History Father No problems noted. Mother Mouth cancer Sister Breast cancer Social History Social History Household Members: Children Housing: Apartment Are you a primary healthcare social worker to a significant other at home: No Do you presently have visiting nurse or other home services: Yes Alcohol intake: current Alcohol intake frequency: a few times a week Alcohol type: beer Patient Tobacco Use Status: Never used Tobacco e-Cigarette/Vaping Use: Never Used Second Hand Smoke Exposure: No Advance Directives: No Advance Directives Information Provided: No Do you have a plan to hurt others: No Plan service: No Current occupational status: disabled Cognitive needs: Yes (cane) Hearing needs: No Vision needs: Yes (glasses) Physical Exam Vital Signs: Vital Signs: Last Vital Signs Temp 97.5 F 12/18/23 16:15 Pulse 56 12/18/23 16:15 Resp 18 12/18/23 16:15 BP 127/71 12/18/23 16:15 Pulse Ox 98 12/18/23 16:15 O2 Del Method Room Air 12/18/23 16:15 BMI result Body Mass Index 27.8 Const: General: cooperative, no acute distress, alert and awake Nutritional Appearance: well nourished Orientation/consciousness: patient oriented x3 Limitations: no limitations HEENT: Head: Yes normal to inspection and Yes atraumatic Ears: hearing grossly normal bilaterally and external ears normal General nose exam: Normal external nose present, no nasal discharge noted and no epistaxis Face and sinus: Yes normal facial exam, No abrasion and No laceration Mouth: Normal oral and palatal mucosa present, no drooling and no muffled voice Eyes: General: appearance normal, both eyes and all related structures Periorbital: periorbital findings normal Eyelids: Yes eyelids normal Conjunctivae: conjunctivae normal Pupils: Equal, round and reactive pupils present EOM: EOMs intact bilaterally Neck: Neck: Yes normal visual inspection, Yes full ROM and Yes no lymphadenopathy Chest: Chest palpation & inspection: normal inspection of the chest Resp: Effort & Inspection: normal respiratory effort and able to speak in complete sentences GI: Inspection: Yes normal to inspection Back/Spine/Pelvis: Other: pain with palpation of the right hip Neuro: General: patient oriented x3 and moves all extremities Cranial nerves: Yes Equal, round and reactive pupils present Cognition (Neuro): normal cognition Extrem: Other: pain with palpation of the right hip General: Yes normal to inspection, Yes full ROM and Yes capillary refill no rmal Psych: Appearance: grossly normal Mental Status: mental status grossly normal Affect: normal affect Attitude: cooperative Thought process: Normal thought process present Thought content: Normal thought content present Insight: Good insight present (Psych) Course Course Course Narrative: This is a Rapid Medical Examination (RME) performed by Fazal Lopez PA-C in triage. Full HPI, ROS, assessment and treatment plan per primary provider in the Main ED. 73 yo male here for eval of right hip pain s/p fall off bed 2 days ago. reports losing his balance while attempting to reach for his phone, landed on his right hip. no head strike or LOC. no thinners. + ambulating with limping gait. further eval needed in back. Plan: xrs ordered Medications Administered Discontinued Medications Generic Name Dose Route Start Last Admin Trade Name Keith PRN Reason Stop Dose Admin Oxycodone HCl 10 mg 12/18/23 15:34 12/18/23 15:42 Oxycodone Hcl Immed Release 5 Mg Tablet PO 12/18/23 15:35 10 mg ONCE ONE Administration Medical Decision Making Medical Decision Making [facility] Narrative: Patient is a 73 year old assigned male at with a history of DM, metastatic rectal cancer, GERD, and cardiomyopathy presenting to the emergency department today with right hip pain. Patient's physical exam was as noted in the physical exam portion of this note. Patient's right hip / pelvis x-ray showed no acute process. Given the patient's physical exam, I continued to be concern for a fracture and obtained a pelvis CT which showed no acute process. Patient's CT head and c-spine were also negative. I explained my physical exam findings as well as all test results to the patient and the patient's son. I answered all questions asked by the patient and the patient's son. Patient received PO pain medication which, upon re-evaluation, he stated it helped his symptoms significantly. I stressed the importance of the patient taking his medication as directed (either prescribed or as the over the counter packaging recommends). I stressed the importance of the patient following up with his primary care provider and an orthopedic provider. I stressed the importance of the patient returning to the emergency department immediately if his symptoms were to worsen or if he were to develop any dizziness, shortness of breath, difficulty breathing, chest pain, blurry vision, loss of vision, nausea, vomiting, abdominal pain, fever, chills, back pain, or any other complaints. Patient and the patient's son verbalized agreement and understanding with this treatment plan and discharge. Differential Diagnosis Differential Diagnoses: The differential diagnosis associated with the presentation includes Hip contusion Hip pain Pelvis pain Hip fracture Pelvic fracture Admission/Observation Consideration of admission/observation: Escalation of care including admission/observation considered Patient would have been admitted to the hospital had his work up had any findings where hospital admission was appropriate and his clinical presentation warranted hospital admission. Independent Interpretation I performed an independent interpretation of an: Plain X-Ray and CT Scan Interpretation: My interpretation is in agreement with the radiologist's impression of these imaging studies. EXAMINATION: XR HIP, RIGHT CLINICAL INFORMATION: Fall off bed with hip strike COMPARISON: None available. TECHNIQUE: Two views of the right hip. AP pelvis. FINDINGS: No fracture. Alignment is anatomic. Hip joint space is maintained. Soft tissues are unremarkable. XR/XR hip RT w PEL1V IMPRESSION: Normal right hip. Electronically signed by: Joe Copelnad MD 12/18/2023 02:36 PM EDT RP Dictated By: Joe Copeland MD Signed By: Electronically signed by Joe Copeland MD 12/18/23 1436 EXAMINATION: CT CERVICAL SPINE WITHOUT CONTRAST CLINICAL INFORMATION: Fall. Pain. COMPARISON: None available. TECHNIQUE: Axial images obtained through cervical spine. Coronal and sagittal reformatted images are performed at CT scanner This CT examination was performed using dose optimization techniques as appropriate, variously including the following: *Automated exposure control *Adjustment of mA and/or kV according to patient size (this includes techniques or standardized protocols for targeted exams where dose is matched to indication/reason for exam; i.e. extremities or head) *Use of iterative reconstruction technique DLP: 486.1 mGy-cm FINDINGS: Cervical vertebrae have normal alignment and height. No fracture. No prevertebral soft tissue swelling.Multilevel degenerative spondylosis. Disc height narrowing and vertebral endplate spurring most significant at C6-C7. Multilevel facet joint arthrosis bilaterally most significant at the upper cervical spine. Near complete opacification of the right maxillary sinus. Lobular mucosal thickening, retention cyst, left maxillary sinus. CT/CT cervical spine wo IV con IMPRESSION: 1. No acute abnormality. 2. Multilevel degenerative spondylosis of cervical spine. Fleischner guidelines were followed. Electronically signed by: Gerardo Kidd MD 12/18/2023 03:53 PM EDT RP Dictated By: Gerardo Kidd MD Signed By: Electronically signed by Gerardo Kidd MD 12/18/23 1553 EXAMINATION: CT PELVIS WITHOUT CONTRAST CLINICAL INFORMATION: Right hip pain. Concern for fracture. COMPARISON: None available. TECHNIQUE: Helical scanning was performed with submillimeter collimation through the pelvis. Sagittal and coronal multiplanar 2-D reconstructions were obtained. This CT examination was performed using dose optimization techniques as appropriate, variously including the following: *Automated exposure control *Adjustment of mA and/or kV according to patient size (this includes techniques or standardized protocols for targeted exams where dose is matched to indication/reason for exam; i.e. extremities or head) *Use of iterative reconstruction technique DLP: 247.19 mGy-cm FINDINGS: PELVIS: No fracture. Mild degenerative spurring of the superolateral acetabular rim. Sacroiliac joints and symphysis pubis are normal.No acute intrapelvic abnormality. Multilevel degenerative spondylosis spine. CT/CT pelvis wo IV con IMPRESSION: 1. No acute abnormality. No fracture. 2. Mild degenerative changes of the acetabulum. Electronically signed by: Gerardo Kidd MD 12/18/2023 03:57 PM EDT RP Dictated By: Gerardo Kidd MD Signed By: Electronically signed by Gerardo Kidd MD 12/18/23 1557 EXAMINATION: CT HEAD WITHOUT CONTRAST CLINICAL INFORMATION: Trauma. Pain. COMPARISON: None available. TECHNIQUE: Contiguous axial imaging was performed from the skull base to vertex without intravenous administration of contrast. This CT examination was performed using dose optimization techniques as appropriate, variously including the following: *Automated exposure control *Adjustment of mA and/or kV according to patient size (this includes techniques or standardized protocols for targeted exams where dose is matched to indication/reason for exam; i.e. extremities or head) *Use of iterative reconstruction technique DLP: 741 mGy-cm FINDINGS: No intra or extra-axial fluid collection, hemorrhage, mass, or mass effect. There is prominence to the sulci and ventricles with what appears to be an old lacune, in the right basal ganglia extending to the lateral margin of the right lateral ventricle. The calvarium is intact. Note is made of extensive mucoperiosteal thickening with dystrophic calcification in the right maxillary sinus. Mild lobular mucosal thickening is seen within the left maxillary sinus. CT/CT head/brain wo IV con IMPRESSION: Chronic changes noted. No evidence for fracture or intracranial hemorrhage. Electronically signed by: Kris Liu MD 12/18/2023 03:22 PM EDT RP Dictated By: Kris Liu MD Signed By: Electronically signed by Kris Liu MD 12/18/23 1522 Radiology Impression Discussion of test interpretation with radiology: I have reviewed the radiologist's reading. Independent Historian Clinical information obtained from an independent historian. History obtained from or confirmed by: Other (patient's son provided additional history and confirmed the history provided by the patient.) Discharge Plan Discharge Clinical Impression: Acute hip pain Patient Disposition: Home, Self-Care Instructions: Hip Pain (ED) Additional Instructions: Follow up with your primary care provider and an orthopedic provider. Return to the emergency department immediately if your symptoms worsen or if you develop any dizziness, shortness of breath, difficulty breathing, chest pain, blurry vision, loss of vision, nausea, vomiting, abdominal pain, fever, chills, back pain, or any other complaints. Jona un seguimiento con orozco m?dico de cabecera y un traumat?logo. Acuda inmediatamente al servicio de urgencias si mynor s?ntomas empeoran o si presenta mareos, falta de aliento, dificultad para respirar, dolor tor?cico, visi?n borrosa, p?rdida de visi?n, n?useas, v?mitos, dolor abdominal, fiebre, escalofr?os, dolor de espalda o cualquier otra molestia. Prescriptions: No Action (DME) pen needle, diabetic [BD Ultra-Fine Short Pen Needle] 31 gauge x 5/16 needle See Rx Instructions .Route Qty: 100 1RF Rx Instructions: four times a day (DME) lancets [OneTouch Delica Lancets] 33 gauge misc See Rx Instructions .Route Qty: 100 0RF Rx Instructions: As directed (DME) blood-glucose meter [OneTouch Ultra2 Meter] Kit See Rx Instructions .Route Qty: 1 0RF Rx Instructions: As directed (DME) OneTouch Ultra Test Strip See Rx Instructions .Route Qty: 100 0RF Rx Instructions: As directed Entresto 24-26 mg tablet 1 tab PO BID Qty: 60 0RF diphenhydramine HCl [Banophen] 25 mg Tablet 25 mg PO DAILY PRN (Reason: Insomnia) Qty: 50 4RF metoprolol succinate 50 mg Tablet Extended Release 24 Hr 50 mg PO DAILY Qty: 90 3RF atorvastatin 80 mg Tablet 80 mg PO BEDTIME thiamine HCl (vitamin B1) 100 mg Tablet 100 mg PO BID aspirin 81 mg Tablet,Delayed Release (Dr/Ec) 81 mg PO DAILY pyridoxine (vitamin B6) 50 mg Tablet 50 mg PO DAILY folic acid 1 mg Tablet 1 mg PO DAILY Brilinta 90 mg Tablet 90 mg PO Q12H tramadol 50 mg Tablet 50 mg PO BEDTIME PRN (Reason: Pain) Qty: 30 0RF temazepam 15 mg capsule 15 mg PO BEDTIME 30 Days Qty: 30 0RF oxycodone 5 mg tablet 5 mg PO BID PRN (Reason: Pain) Qty: 30 0RF albuterol sulfate 90 mcg/actuation HFA aerosol inhaler 1 inh inhalation QID PRN (Reason: shortness of breath or wheezing) Qty: 6.7 1RF lisinopril 20 mg tablet 20 mg PO DAILY insulin glargine [Lantus Solostar U-100 Insulin] 100 unit/mL (3 mL) insulin pen 14 unit subcut QPM Qty: 15 1RF Referrals: [facility] Family Medicine [Provider Group] (Call to establish and follow up with a primary care provider. If you already have a primary care provider, please follow up with them. Llame para establecer y hacer un seguimiento con un proveedor de atenci?n primaria. Si ya tiene un proveedor de atenci?n primaria, jona un seguimiento con ?l.) [facility] [Provider Group] (Call to establish and follow up with a primary care provider. If you already have a primary care provider, please follow up with them. Llame para establecer y hacer un seguimiento con un proveedor de atenci?n primaria. Si ya tiene un proveedor de atenci?n primaria, jona un seguimiento con ?l.) [facility] [Provider Group] (Call to establish and follow up with a primary care provider. If you already have a primary care provider, please follow up with them. Llame para establecer y hacer un seguimiento con un proveedor de atenci?n primaria. Si ya tiene un proveedor de atenci?n primaria, jona un seguimiento con ?l.) [facility] [Provider Group] (Call to establish and follow up with an orthopedic provider. Llame para establecer y seguir con un proveedor de ortopedia.) Interventions: ED Discharge Assessment Last Done: 12/18/23 16:15 Discharge Date/Time: 12/18/23 16:16 Print Language: Citizen Of [place]
[2023-12-18 12:52] VITALS: BP 118/66; PULSE 64; RESP 16; TEMP 36.9; O2SAT 98
[2023-12-18 15:32] VITALS: BP 127/71; PULSE 56; RESP 18; TEMP 36.4; O2SAT 98
[2023-12-18] MEDS: oxyCODONE HCl Immed Release 5 MG TABLET 10 MG PO (15:42)
[2023-12-18 16:15] VITALS: BP 127/71; PULSE 56; RESP 18; TEMP 36.4; O2SAT 98
== END 2023-12-18 16:16 | disposition home or self-care (01) ==
PROVIDERS: Emergency Provider Emergency Medicine
DX: M25.551 Pain in right hip (principal); Z91.81 History of falling; E11.9 Type 2 diabetes mellitus without complications; I10 Essential (primary) hypertension; E78.5 Hyperlipidemia, unspecified; Z79.02 Long term (current) use of antithrombotics/antiplatelets; Z79.82 Long term (current) use of aspirin; Z79.899 Other long term (current) drug therapy; Z79.4 Long term (current) use of insulin
CPT/HCPCS: 70450; 72125; 72192; 73502; 99284

== ENCOUNTER 2024-01-21 12:14 | Outpatient (REF) | payer OTHER, SELFPAY ==
--- NOTE | ~2024-01-21 | PE_ITS ---
EXAMINATION: Fluorine-18 FDG PET/CT Scan CLINICAL INDICATION: Subsequent treatment management. Malignant neoplasm of rectum, assess response to therapy. PROCEDURE: 56 minutes following the intravenous administration of 17.8 mCi of fluorine 18 FDG, images from the base of the skull to the mid thighs were obtained using a combined PET/CT scanner with CT scan based attenuation correction. No oral contrast was administered. No intravenous contrast was administered. Transverse, coronal, sagittal, and volume reconstruction projections were obtained. The patient's blood glucose as determined by a finger stick, was 139 mg/dl immediately prior to injection. Total CT exam dose-length product 638.06 mGy-cm * These CT images were obtained using dose optimization techniques as appropriate, variously including the following: Automated exposure control * Adjustment of mA and/or kV according to patient size (this includes techniques or standardized protocols for targeted exams where dose is matched to indication/reason for exam; i.e. extremities or head) * Use of iterative reconstruction technique COMPARISON: Prior FDG PET/CT scans dated 06/11/2023 and 12/25/2022 are available for comparison. CT of the pelvis dated 12/18/2023 is also available for comparison. FINDINGS: (Slice numbers described in this report are numbered superiorly to inferiorly with slice #1 in the head) NECK AND VISUALIZED HEAD: There is a focus of increased FDG activity in the left lingula/patella 19 tonsil region showing SUVmax 5.2, slice 31/267. This is new since the 06/11/2023 PET/CT scan. Some subtle soft tissue swelling at this site is probably present, but this is not well delineated on these nondiagnostic CT images performed without intravenous contrast. There are no other foci of abnormal FDG activity in the neck or visualized head. All the other activity appears physiological. There is almost complete opacification of the right maxillary sinus, similar to the prior studies and with no associated abnormal FDG activity. THORAX: There are no foci of abnormal FDG activity in the chest. There is a stable 0.4 cm lateral left lower lobe pulmonary nodule, slice 90/267, unchanged in appearance from the baseline 12/25/2022 PET/CT scan and much too small to be characterized on the FDG PET images. No other pulmonary nodules are visualized. There is no pleural or or pericardial fluid, or pneumothorax. There is no mediastinal, supraclavicular, or axillary lymphadenopathy. ABDOMEN AND PELVIS: There has been enlargement and increased FDG avidity in hepatic hypodensities involving both lobes. The largest is an irregular focus in the right lobe showing SUVmax 7.3 versus SUVmax 4.3 on 06/11/2023. On the CT images hypodensity measures approximately 7.7 x 5.1 cm in largest transverse dimensions and 6.6 cm cephalocaudad, versus 4.8 x 3.2 x 5.7 cm on 06/11/2023. There is also been enlargement and increased FDG avidity of the lesion in the left lobe, now showing SUVmax 6.3 versus SUVmax 4.9 on 06/11/2023 and this has also increased significantly in size. In addition, posteriorly in the dome of the right lobe there is a new FDG avid focus showing SUVmax 4.4, slice 106/267 which was not present on previous studies. There is probably a hypodensity at this site on the corresponding CT images, but is not well delineated. There are no additional foci of abnormal FDG activity or other abnormalities in the liver. The gallbladder and spleen are unremarkable. The kidneys, adrenal glands, and pancreas are unremarkable. There is mild FDG activity throughout the gastrointestinal tract without a suspicious focal component. There is diverticulosis without evidence of diverticulitis. The suture line in the rectosigmoid colon is again noted and there is no associated abnormal FDG activity. The prostate gland is not visualized and presumed resected. The pelvic organs are otherwise unremarkable.. MUSCULOSKELETAL: There are no foci of abnormal FDG activity in the osseous structures. There are mild degenerative changes in the spine but no suspicious sclerotic or lytic lesions are visualized. VASCULAR: Diffuse vascular calcifications including coronary are noted. Reference SUVmax Levels: Mediastinal Blood Pool: 2.2, Slice 76/267 Liver: 4.0, Slice 117/267 PET/PET CT fusion skull to thigh IMPRESSION: 1. Increasing size and FDG avidity, as well as development of a new FDG avid lesion in the liver are evidence of progressive metastatic malignancy. 2. There is a new focus of FDG avidity, possibly associated with subtle soft tissue swelling in the left tonsillar region. While this may be inflammatory in etiology, a malignant lesion at this site cannot be ruled out. Correlation with direct visualization is recommended, and this also may be further characterized with IV contrast enhanced CT imaging of the neck soft tissues, if clinically indicated. 3. No additional abnormality suspicious for other metastatic or malignant lesions are noted. 4. Vascular calcifications including coronary. Electronically signed by: Esvin Rooney MD 01/22/2024 12:05 PM J[facility]MONA
== END 2024-01-21 12:15 | disposition home or self-care (01) ==
LOC: HO.PET 12:14
PROVIDERS: PCP Internal Medicine; Visit Provider Internal Medicine
DX: Z13.89 Encounter for screening for other disorder (principal)

== ENCOUNTER 2024-02-07 12:08 | Emergency (ER) | payer OTHER, SELFPAY ==
[2024-02-07 12:12] VITALS: BP 135/72; PULSE 66; RESP 16; TEMP 36.2; O2SAT 98; BMI 26.7
--- NOTE | 2024-02-07 12:12 | ED.GENADULT ---
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 He reports he was cleaning off his car and his neighbor's dog bit him. He is not bleeding. He reports he came in because he is diabetic. Does not know when his last tetanus shot was. He is not sure of the dog was vaccinated however he states he would like to check with a neighbor. Denies fevers, chills, leg pain, numbness or tingling. Related Data Home Medications ?Medication ?Instructions ?Recorded ?Confirmed aspirin 81 mg tablet,delayed 81 mg PO DAILY 02/06/23 09/09/23 release atorvastatin 80 mg tablet 80 mg PO BEDTIME 02/06/23 09/09/23 folic acid 1 mg tablet 1 mg PO DAILY 02/06/23 09/09/23 pyridoxine (vitamin B6) 50 mg 50 mg PO DAILY 02/06/23 09/09/23 tablet thiamine HCl (vitamin B1) 100 mg 100 mg PO BID 02/06/23 09/09/23 tablet ticagrelor 90 mg tablet (Brilinta) 90 mg PO Q12H 02/06/23 09/09/23 lisinopril 20 mg tablet 20 mg PO DAILY 08/13/23 09/09/23 Previous Rx's ?Medication ?Instructions ?Recorded diphenhydramine HCl 25 mg tablet 25 mg PO DAILY PRN Insomnia #50 10/31/20 (Banophen) tabs blood sugar diagnostic (ThoughtLeadrTouch #100 ea 03/22/22 Ultra Test strips) blood-glucose meter (OneTouch #1 ea 03/22/22 Ultra2 Meter kit) lancets 33 gauge (OneTouch Delica #100 ea 03/22/22 Lancets) pen needle, diabetic 31 gauge x #100 ea 03/22/22 5/16 (BD Ultra-Fine Short Pen Needle) metoprolol succinate 50 mg 50 mg PO DAILY #90 tabs 07/24/22 tablet,extended release 24 hr sacubitril 24 mg-valsartan 26 mg 1 tab PO BID #60 tabs 03/20/23 tablet (Entresto) albuterol sulfate 90 mcg/actuation 1 inh inhalation QID PRN shortness 04/08/23 aerosol inhaler of breath or wheezing #6.7 grams insulin glargine 100 unit/mL (3 14 unit (0.14 mL) subcut QPM #15 mL 08/13/23 mL) subcutaneous pen (Lantus Solostar U-100 Insulin) tramadol 50 mg tablet 50 mg PO BEDTIME PRN Pain #30 tabs 10/16/23 oxycodone 5 mg tablet 5 mg PO BID PRN Pain #30 tabs 01/17/24 temazepam 15 mg capsule 15 mg PO BEDTIME 30 days #30 caps 01/17/24 regorafenib 40 mg tablet (Stivarga) 80 mg (2 x 40 mg) PO DAILY #42 tabs 01/27/24 amoxicillin 875 mg-potassium 1 tab PO BID 7 days #14 tabs 02/07/24 clavulanate 125 mg tablet Allergies Allergy/AdvReac Type Severity Reaction Status Date / Time adhesive tape Allergy Severe Rash from Verified 02/07/24 12:14 medical tape chlorhexidine [CHLORHEXIDINE] Allergy Intermediate RASH,HIVES Verified 02/07/24 12:14 latex Allergy Unknown Verified 02/07/24 12:14 Review of Systems Review of Systems: Yes all other systems are reviewed and are negative PMFSH Past Medical History Attestation statement: The following information was validated with the patient. Source: old records reviewed and nursing notes reviewed Medical History Constipation Alcohol abuse Insomnia Coronary atherosclerosis Cancer Acute insomnia Acquired polyneuropathy shelter (current) use of insulin Type 2 diabetes mellitus with other circulatory complications Gastro-esophageal reflux disease without esophagitis H/O alcohol abuse Depression, major, recurrent, moderate Borderline hyperlipidemia Benign hypertension History of alcoholism History of prostate cancer Chronic back pain Skin rash History of conjunctivitis Dyslipidemia GERD (gastroesophageal reflux disease) History of CVA (cerebrovascular accident) Diabetes Hypertension Surgical History History of colon surgery H/O prostatectomy Family History Family History Father No problems noted. Mother Mouth cancer Sister Breast cancer Social History Social History Household Members: Children Housing: Apartment Are you a primary childbirth and infant care teacher to a significant other at home: No Do you presently have visiting nurse or other home services: Yes Alcohol intake: current Alcohol intake frequency: a few times a week Alcohol type: beer Patient Tobacco Use Status: Never used Tobacco e-Cigarette/Vaping Use: Never Used Second Hand Smoke Exposure: No Advance Directives Date on File: 10/18/21 service: No Current occupational status: disabled Cognitive needs: Yes (cane) Hearing needs: No Vision needs: Yes (glasses) Physical Exam ED Vital Signs: vss Appearance: Alert.? Oriented X3.? No acute distress.? Head: Normocephalic, atraumatic, no step-offs or deformities Eyes: Pupils equal, round and reactive to light.? Neck: Normal inspection.? Neck supple.? CVS: Normal heart rate and rhythm.? Pulses normal.? Respiratory: No respiratory distress.? Breath sounds normal.? Abdomen: Soft and nontender.? Skin: Skin warm and dry.? Normal skin color.? Normal skin turgor.? + small puncture wound to left calf. No erythema, warmth or discharge. No bleeding Neuro: Oriented X 3.? No motor deficit.? No sensory deficit. CN 2-12 intact. Ambulating w/ steady gait normal cordination Medical Decision Making Medical Decision Making MDM Narrative: 73 yo m presents w/ dog bite to left calf [employer] PE Skin warm and dry.? Normal skin color.? Normal skin turgor.? + small puncture wound to left calf. No erythema, warmth or discharge. No bleeding Hx and pe concerning for dog bite. No signs of infection, necrosis or open lac at this time Plan- patient will speak to neighbor to see if dog is vaccinated or not. He would like to hold on rebies series until he hears from his neighbor. If dog is not vaccinated he will return for rabies series. He is not UTD on tetanus so will order at this time. Will dc w/ augmentin. Educated patient on diagnosis and treatment plan, answered all question, patient verbalizes understanding. At this time patient will be discharged home, advised to return with new or worsening symptoms. Educated on worrisome signs and symptoms and when to return. At this time I feel comfortable discharge home. Differential Diagnosis Differential Diagnoses: The differential diagnosis associated with the presentation includes (Hx and pe concerning for dog bite. No signs of infection, necrosis or open lac at this time ) Admission/Observation Consideration of admission/observation: Escalation of care including admission/observation considered External Record Review External record reviewed: Office record, Outpatient record and Prior outpatient labs Chronic Conditions Patient?s care impacted by: Diabetes and Other (see hpi) Social Determinants Patient?s care significantly limited by Social Determinants of Health including: Other Social Determinant of Health Critical Care Time Critical Care Time Critical Care Time: No Discharge Plan Discharge Clinical Impression: Dog bite Patient Disposition: Home, Self-Care Instructions: Animal Bite (ED), Rabies (ED) Additional Instructions: Take your medications as prescribed. If you were prescribed antibiotics today, it is important that you take your medication to their entirety, do not skip any doses, do not finish them early. Follow-up with your primary care provider this week. Return to the emergency department with new or worsening symptoms. Such as fevers, chills, chest pain, shortness of breath, nausea, vomiting, dizziness, headache, vision changes, lethargy In case of emergency call 911 Please find out today whether or not the dog is vaccinated. If the dog is not vaccinated you should return within the next day or 2 to receive your rabies series and immunoglobulin which consist of multiple shots. If the dog is vaccinated against rabies you do not need to receive the rabies series or immunoglobulin. Antibiotics have been sent to your pharmacy. Prescriptions: New amoxicillin-pot clavulanate 875-125 mg tablet 1 tab PO BID 7 Days Qty: 14 0RF No Action (DME) pen needle, diabetic [BD Ultra-Fine Short Pen Needle] 31 gauge x 5/16 needle See Rx Instructions .Route Qty: 100 1RF Rx Instructions: four times a day (DME) lancets [OneTouch Delica Lancets] 33 gauge misc See Rx Instructions .Route Qty: 100 0RF Rx Instructions: As directed (DME) blood-glucose meter [OneTouch Ultra2 Meter] Kit See Rx Instructions .Route Qty: 1 0RF Rx Instructions: As directed (DME) OneTouch Ultra Test Strip See Rx Instructions .Route Qty: 100 0RF Rx Instructions: As directed Entresto 24-26 mg tablet 1 tab PO BID Qty: 60 0RF diphenhydramine HCl [Banophen] 25 mg Tablet 25 mg PO DAILY PRN (Reason: Insomnia) Qty: 50 4RF metoprolol succinate 50 mg Tablet Extended Release 24 Hr 50 mg PO DAILY Qty: 90 3RF atorvastatin 80 mg Tablet 80 mg PO BEDTIME thiamine HCl (vitamin B1) 100 mg Tablet 100 mg PO BID aspirin 81 mg Tablet,Delayed Release (Dr/Ec) 81 mg PO DAILY pyridoxine (vitamin B6) 50 mg Tablet 50 mg PO DAILY folic acid 1 mg Tablet 1 mg PO DAILY Brilinta 90 mg Tablet 90 mg PO Q12H tramadol 50 mg Tablet 50 mg PO BEDTIME PRN (Reason: Pain) Qty: 30 0RF temazepam 15 mg capsule 15 mg PO BEDTIME 30 Days Qty: 30 0RF oxycodone 5 mg tablet 5 mg PO BID PRN (Reason: Pain) Qty: 30 0RF Stivarga 40 mg Tablet 80 mg PO DAILY Qty: 42 0RF albuterol sulfate 90 mcg/actuation HFA aerosol inhaler 1 inh inhalation QID PRN (Reason: shortness of breath or wheezing) Qty: 6.7 1RF lisinopril 20 mg tablet 20 mg PO DAILY insulin glargine [Lantus Solostar U-100 Insulin] 100 unit/mL (3 mL) insulin pen 14 unit subcut QPM Qty: 15 1RF Referrals: Obdulio Hackett MD [Primary Care Provider] - 2 days Print Language: Uruguayan
[2024-02-07] MEDS: Diphth,Pertus(ACell),Tet Adult 0.5 ML SYRINGE IM (12:32)
[2024-02-07 12:36] VITALS: BP 135/72; PULSE 66; RESP 16; TEMP 36.2; O2SAT 98
--- OUTSIDE RECORDS SUMMARY | 2024-02-12 08:08 | XMS_ITS | Continuity of Care Document ---
Author Organization [facility] Address [address] [place] [address]- Care Team Providers Care Conveyor Worker Name Role Phone Lea Cage MD Primary Care Physician [phone] Encounter [facility] [place] Date(s): 09/28/23 - 01/26/24 [facility] [address] [place] [address]- Attending Physician: Claudine Hayes NP Admitting Physician: Claudine Hayes NP Encounter Type: Pre-OutPatient One Time Allergies, Adverse Reactions, Alerts Substance Criticality Severity Reaction Reaction Severity Status chlorhexidine topical High criticality Moderate Rash, Hives Active Latex Unable to assess criticality Unknown Active Adhesive Bandage High criticality Severe Rash Active Immunizations Given and Recorded Vaccine Date Status Refusal Reason influenza virus vaccine, inactivated 01/29/23 Give n Medications atorvastatin 80 mg oral tablet 1 tablet = 80 mg, By Mouth, Daily at bedtime, # 90 tablet, 3 Refills, Maintenance, 02/15/23 9:50:00AM EST, Tablet, [facility] #[id number], Partial fill upon patient request if the prescription is for a schedule II opioid drug. Please reach out to PCP or cardiology for refills, 167, cm, 3 9:35:00 EST, Height, 69.1, kg, 01/25/23 10:55:00 EST, Dry Weight Start Date: 02/15/23 Stop Date: 02/10/24 Status: Ordered Quantity: 90.0 Unit: tablet Repeat number: 4 clopidogrel 75 mg oral tablet 75 mg, 1, tablet, By Mouth, Daily, Please take 300 mg (4 tablets) today then tomorrow start 75 mg (1 tablet) once a day, # 30 tablet, Refills 11, Tot. Refills 11, Maintenance, 07/31/23 4:29:00 PM EDT,Route to Pharmacy Electronically, [facility] #[id number], Partial fill upon patient request ifthe prescription is for a schedule II opioid drug., 167, cm, 07/31/23 15:42:00 EDT, Height, 69.1, kg, 01/25/23 10:55:00 EST, Dry Weight Start Date: 07/31/23 Stop Date: 07/25/24 Status: Ordered Quantity: 30.0 Unit: tablet Repeat number: 12 Entresto 24 mg-26 mg oral tablet 1 tablet, By Mouth, 2 times a day, # 60 tablet, 5 Refills, Maintenance, 09/20/23 9:14:00 AM EDT, Tablet, [facility] #[id number], Partial fill upon patient request if the prescription is for a schedule II opioid drug., 1 tablet By Mouth 2 times a day,x30 days, 167, cm, 09/20/23 8:54:00 EDT, Height, 69.1, kg, 01/25/23 10:55:00 EST, Dry Weight Start Date: 09/20/23 Stop Date: 03/18/24 Status: Ordered Quantity: 60.0 Unit: tablet Repeat number: 6 folic acid 1 mg oral tablet 1 mg, By Mouth, Daily, # 90 tablet, Refills 0, Tot. Refills 0, Maintenance, 01/30/23 4:52:00 PM EST, Route to Pharmacy Electronically, [facility], Partial fill upon patient request if the prescription is for a schedule II opioid drug., 167, cm, 01/25/23 10:55:00 EST, Height, 69.1, kg,01/25/23 10:55:00 EST, Dry Weight Start Date: 01/30/23 Status: Ordered Quantity: 90.0 Unit: tablet Repeat number: 1 insulin glargine 100 units/mL subcutaneous solution 0.15 mL = 15 units, Subcutaneous Injection, Daily at bedtime, # 4.5 mL, 2 Refills, Maintenance, 01/30/23 4:53:00 PM EST, Injection, [facility], Partial fill upon patient request if the prescription is for a schedule II opioid drug., 167, cm, 01/25/23 10:55:00 EST, Height, 69.1, kg, 01/25/23 10:55:00 EST, Dry Weight Start Date: 01/30/23 Status: Ordered Quantity: 4.5 Unit: mL Repeat number: 3 metoprolol 50 mg oral tablet, extended release 50 mg, 1, tablet, By Mouth, Daily, # 90 tablet, Refills 3, Tot. Refills 3, Maintenance, 02/15/23 9:50:00 AM EST, Route to Pharmacy Electronically, [facility] #[id number], Partial fill upon patient request if the prescription is for a schedule II opioid drug. Please reach out to PCP or cardiology for refills, 167, cm, 02/15/23 9:35:00 EST, Height, 69.1, kg, 01/25/23 10:55:00 EST, Dry Weight Start Date: 02/15/23 Stop Date: 02/10/24 Status: Ordered Quantity: 90.0 Unit: tablet Repeat number: 4 NovoLOG FlexPen 100 units/mL injectable solution ADMINISTER 10 UNITS UNDER THE SKIN THREE TIMES DAILY Start Date: 01/25/23 Status: Ordered Repeat number: 1 oxyCODONE 5 mg oral tablet TAKE 1 TABLET BY MOUTH TWICE DAILY NEEDED FOR PAIN Start Date: 01/25/23 Status: Ordered Repeat number: 1 thiamine 100 mg oral tablet 100 mg, By Mouth, 2 times a day, # 90 tablet, Refills 0, Tot. Refills 0, Maintenance, 01/30/23 4:52:00 PM EST, Route to Pharmacy Electronically, [facility], Partial fill upon patient request if the prescription is for a schedule II opioid drug., 167, cm, 01/25/23 10:55:00 EST, Height,69.1, kg, 01/25/23 10:55:00 EST, Dry Weight Start Date: 01/30/23 Status: Ordered Quantity: 90.0 Unit: tablet Repeat number: 1 traMADol 50 mg oral tablet 1 tablet = 50 mg, By Mouth, Daily at bedtime, PRN as needed for pain, 0 Refills, Maintenance, 01/25/23 12:19:00 PM EST, Tablet, Partial fill upon patient request if the prescription is for a scheduleII opioid drug. Start Date: 01/25/23 Status: Ordered Repeat number: 1 Xarelto 10 mg oral tablet TAKE 1 TABLET BY MOUTH DAILY Start Date: 02/15/23 Status: Ordered Repeat number: 1 Xeloda 500 mg oral tablet 3 tablet = 1,500 mg, By Mouth, Every 12 hours, 0 Refills, Maintenance, 07/31/23 3:42:00 PM EDT, Partial fill upon patient request if the prescription is for a schedule II opioid drug. Start Date: 07/31/23 Status: Ordered Repeat number: 1 Problem List Condition Confirmation Course Effective Dates Status H ealth Status Informant Rectal adenocarcinoma Confirmed Active ETOH abuse Confirmed Active Benign essential HTN Confirmed Active Hyperlipidemia Confirmed Active Cancer of colon Confirmed Active Cancer of prostate Confirmed Active *[phone] [employer] Confirmed Active Social History Social History Type Response Smoking Status Never smoker; Type: Cigarettes entered on: 02/19/17 Sex Sex Representation Male (finding) Patient Care team information Care Team Personnel Name: Maximino Arellano RN Position: [facility] RN Member Role: Primary Care Nurse Name: Lea Cage MD Position: [facility] Outreach Member Role: PCP Address: [address] [place] [address] Telecom: Name: Donavan Martinez RN Position: [facility] RN Member Role: Primary Care Nurse Care Team Related Persons Name: BRONWYN ACOSTA Insurance Providers Guarantor name: KATERINE ACOSTA Health Plan Information #: 1 Payer: [employer] Member Number: [id number] Policy Number: NA Group Number: [facility] [place] Information #: 2 Payer: NA Member Number: [id number] Policy Number: NA Group Number: NA
== END 2024-02-07 12:36 | disposition home or self-care (01) ==
PROVIDERS: Emergency Provider Emergency Medicine Emergency Medical Services; PCP Internal Medicine
DX: S81.852A Open bite, left lower leg, initial encounter (principal); W54.0XXA Bitten by dog, initial encounter; E11.9 Type 2 diabetes mellitus without complications; I10 Essential (primary) hypertension; E78.5 Hyperlipidemia, unspecified; Y93.89 Activity, other specified; Y92.038 Other place in apartment as the place of occurrence of the external cause; Y99.9 Unspecified external cause status; Z23 Encounter for immunization; Z79.4 Long term (current) use of insulin
CPT/HCPCS: 90471; 90715; 99282; 99284

== ENCOUNTER 2024-02-19 13:15 | Outpatient (AMB) | payer OTHER, SELFPAY ==
--- NOTE | 2024-02-19 13:16 | A.OFFPC_ITS ---
Vital Signs 02/19/24 13:18 Height 5 ft 6 in Weight 160 lb 8 oz BMI 25.9 BP 122/80 Blood Pressure Location Lt brachial Position Sitting Pulse 65 Pulse Source Pulse Oximeter Pulse Oximetry (%) 97 Oxygen Delivery Method Room Air Intake Visit Reasons: Annual PE Private Advisor Required: No Accompanied by: Paternal Uncle Allergies adhesive tape Allergy (Severe, Verified 02/19/24 14:10) Rash from medical tape chlorhexidine [CHLORHEXIDINE] Allergy (Intermediate, Verified 02/19/24 14:10) RASH,HIVES latex Allergy (Verified 02/19/24 14:10) Unknown Medication List - Last Reconciled 02/19/24 by Sana Nails PA-C albuterol sulfate 90 mcg/actuation 1 inh inhalation QID PRN amoxicillin-pot clavulanate 875-125 mg 1 tab PO BID 7 days aspirin 81 mg PO DAILY atorvastatin 80 mg PO BEDTIME blood sugar diagnostic (Live[employer] Ultra Test strips) As directed blood-glucose meter (Live[employer]Dem[employer] Ultra2 Meter kit) As directed diphenhydramine HCl (Banophen) 25 mg PO DAILY PRN folic acid 1 mg PO DAILY food supplemt, lactose-reduced (Ensure Complete) 1 ea PO DAILY insulin glargine (Lantus Solostar U-100 Insulin) 14 units (0.14 mL) subcut QPM lancets ([employer] Delica Lancets) As directed lisinopril 20 mg PO DAILY metoprolol succinate ER 50 mg PO DAILY multivitamin 1 tab PO DAILY oxycodone 5 mg PO BID PRN pen needle, diabetic (BD Ultra-Fine Short Pen Needle) four times a day pyridoxine (vitamin B6) 50 mg PO DAILY regorafenib (Stivarga) 80 mg (2 x 40 mg) PO DAILY sacubitril-valsartan 24-26 mg (Entresto) 1 tab PO BID temazepam 15 mg PO BEDTIME 30 days thiamine HCl (vitamin B1) 100 mg PO BID ticagrelor (Brilinta) 90 mg PO Q12H tramadol 50 mg PO BEDTIME PRN Tobacco use date assessed: 02/19/24 Fall risk assessment: 1 Fall in past year Last assessed Fall Risk: 02/19/24 Dental Screening Dental Screen Date: 02/19/24 Did you have a dental visit in the last 12 months?: No Did you have a dental problem in the last 6 months where you did not have access to dental care?: No Was dental information given to patient?: Patient has dentist [facility] Medical History Alcohol dependence Hyperlipidemia Constipation Alcohol abuse Insomnia Coronary atherosclerosis Cancer Acute insomnia Acquired polyneuropathy long term (current) use of insulin Type 2 diabetes mellitus with other circulatory complications Gastro-esophageal reflux disease without esophagitis H/O alcohol abuse Depression, major, recurrent, moderate Borderline hyperlipidemia Benign hypertension History of alcoholism History of prostate cancer Chronic back pain Skin rash History of conjunctivitis Dyslipidemia GERD (gastroesophageal reflux disease) History of CVA (cerebrovascular accident) Diabetes Hypertension Surgical History History of colon surgery H/O prostatectomy Family History Father No problems noted. Mother Mouth cancer Sister Breast cancer Social History Household Members: Children Housing: Apartment Are you a primary transition of care specialist to a significant other at home: No Do you presently have visiting nurse or other home services: Yes Alcohol intake: current Alcohol intake frequency: a few times a week Alcohol type: beer Patient Tobacco Use Status: Never used Tobacco e-Cigarette/Vaping Use: Never Used Second Hand Smoke Exposure: No Advance Directives Date on File: 10/18/21 service: No Current occupational status: disabled Cognitive needs: Yes (cane) Hearing needs: No Vision needs: Yes (glasses) Questionnaire PHQ-9 Over the last 2 weeks, how often have you been bothered by any of the following problems? 1. Little interest or pleasure in doing things: not at all 2. Feeling down, depressed, or hopeless: not at all 3. Trouble falling or staying asleep, or sleeping too much: not at all 4. Feeling tired or having little energy: not at all 5. Poor appetite or overeating: not at all 6. Feeling bad about yourself - or that you are a failure or have let yourself or your family down: not at all 7. Trouble concentrating on things, such as reading the newspaper or watching television: not at all 8. Moving or speaking so slowly that other people could have noticed. Or the opposite - being so fidgety or restless that you have been moving around a lot more than usual: not at all 9. Thoughts that you would be better off or of hurting yourself in some way: not at all Total score: 0 Depression Screening Interpretation: Negative Depression Screening Done: Yes Source: Developed by Drs. Chintan Mirza, Vilma Naylor, Kris Du and colleagues, with an educational ioana from [employer]. Thrive Questionnaire Date Thrive assessed: 02/19/24 I am a: Patient What is your living situation today?: I have a steady place to live Within the past 12 months, did the food you bought not last and you didn't have the money to get more?: I choose not to answer this question Within the past 12 months, did you worry whether your food would run out before you got money to buy more?: I choose not to answer this question Do you have trouble paying for medicines?: I choose not to answer this question Do you have trouble getting transportation to medical appointments?: I choose not to answer this question Do you have trouble paying your heating and electricity bill?: I choose not to answer this question Do you have trouble taking care of your child, family member or friend?: I choose not to answer this question Do you have trouble with day-to-day activities such as bathing, preparing meals, shopping, managing finances, etc.?: I choose not to answer this question Are you currently unemployed and looking for a job?: I choose not to answer this question Are you interested in more education?: I choose not to answer this question Please select the resources that you would like help with: None Currently or been in a relationship where the following occur: I choose not to answer THRIVE Score: 0 AUDIT C Alcohol Use Questionnaire (AUDIT-C) 1. How often do you have a drink containing alcohol?: Never Total Score: 0 CAL-7 AMB Questionnaire CAL-7 Date CAL - 7 assessed: 02/19/24 Feeling nervous, anxious, or on edge: 0 = Not at all Not being able to stop or control worryin = Not at all Worrying too much about different things: 0 = Not at all Trouble relaxin = Not at all Being so restless that it is hard to sit still: 0 = Not at all Becoming easily annoyed or irritable: 0 = Not at all Feeling afraid as if something awful might happen: 0 = Not at all Total CAL-7 score (0-4 normal; 5-9 mild; 10-14 moderate; 15-21 severe): 0 Source: Developed by Drs. Chintan Mirza, Vilma Naylor, Kris Du and colleagues, with an educational ioana from [employer]. Review of Systems Const All systems reviewed & are unremarkable except as noted in HPI and below Physical exam (Primary Care) Vital Signs: Last Vital Signs Pulse 65 02/19/24 13:18 BP 122/80 02/19/24 13:18 Pulse Ox 97 02/19/24 13:18 Oxygen Delivery Method Room Air 02/19/24 13:18 BMI result Body Mass Index 25.9 Tobacco/Smoking Status: Tobacco use Status Tobacco use date assessed 02/19/24 02/19/24 13:24 Patient Tobacco Use Status Never used Tobacco 02/19/24 13:24 e-Cigarette/Vaping Use Never Used 02/19/24 13:24 PHQ-9: PHQ-9 Score PHQ-9: Total score 0 02/19/24 13:51 Depression Screening Interpretation: Negative Thrive Assessment: Date of Thrive Assessment Date Thrive assessed 02/19/24 02/19/24 13:24 Currently or been in a relationship where the following occur: I choose not to answer Results AMB Hemoglobin A1c AMB Hemoglobin A1c 6.9 % Last Edit by ROSA Warren on 02/19/24 13 :52 Results Reviewed Results Reviewed: Laboratory Last Values Hgb A1c (Clinic) 6.9 % (4.0-6.0) H 02/19/24 13:51 A1c level in the office today 6.9 similar when compared to prior A1c level on 10/16/2023 was also 6.9. 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 See below for plan. (2) Type 2 diabetes mellitus with other circulatory complications: Code(s): E11.59 - Type 2 diabetes mellitus with other circulatory complications Category: Medical Plan: Continue current p.o. and insulin regimen for diabetes. (3) Hyperlipidemia: Code(s): E78.5 - Hyperlipidemia, unspecified Category: Medical Plan: Continue current hyperlipidemia medications statin that patient is currently on (4) Hypertension: Code(s): I10 - Essential (primary) hypertension Category: Medical Plan: Continue current antihypertensive medications. 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 Cage. Patient currently on chemotherapy. (6) Alcohol dependence: Code(s): F10.20 - Alcohol dependence, uncomplicated Category: Medical Plan: Patient educated on alcohol. Recommended alcohol cessation. Plan Plan - Continue current management of diabetes mellitus and essential hypertension. - Discuss potential shift from chemotherapy through port to oral chemotherapy f or cancer management. - Schedule an ophthalmologic assessment given reported visual difficulties and refraining from driving at night. Follow up in 3 months. Orders: Orders AMB Hemoglobin A1c Today Paul Romero MD Z13.9 - Encounter for screening, unspecified Medications: New food supplemt, lactose-reduced (Ensure Complete) 1 ea PO DAILY 1,184 mL 0RF Sana Nails PA-C multivitamin 1 tab PO DAILY 30 tabs 3RF Sana Nails PA-C Scribe Plan - Not visible on output: History of Present Illness The patient is a 73-year-old male presenting For an annual physical exam. He would also like to discuss management of chronic conditions, specifically diabetes mellitus, hypertension, and cancer. The patient is currently on medication for diabetes and hypertension. He reports having suffered two myocardial infarctions in the past, for which he is on cardiac medication. A recent laboratory examination conducted in December revealed chronic anemia. Additionally, elevated total bilirubin at 1.1 and AST at 53. A PET scan performed subsequently suggested progression of cancer to the Liver. Patient is currently on chemo has port in place to the right chest. He will see Dr. Cage his oncologist tomorrow to discuss changing from IV chemo 2 p.o. chemotherapy. He reports he is considering this although does not want his port removed until he trials the p.o. chemotherapy and does not have side effects from it. The patient denies recent episodes of fever, chest pain, or shortness of breath. Patient reports occasional right sided abdominal pain that improves on its own. He also denies any blood in stools or urine. He denies any nausea or vomiting, black or bloody stools, hematuria, abnormal penile discharge or dysuria. He is requesting to be prescribed multivitamin or another medication that will help him due to decreased p.o. intake from all the medications he is on and the chemotherapy. Patient wears glasses and reports he has not had a visual exam and a proximally 3 years. Although he has an supplier quality engineering manager he can follow-up with and make an appointment with. Patient has a [employer] through [employer]. His son is his [employer]. His son assists is him with his activities of daily living including bathing, dressing. He also assisted with taking him to appointments, grocery shopping in any other activ ities of daily living that the patient will need. The patient reports he is currently not exercising. He was in physical therapy in the past although has been several months that he has not been in physical therapy. Patient reports he drinks approximately 12 beers weekly sometimes more or sometimes less. He reports he does not smoke or do any drugs. Given his history of visual impairment, the patient expresses a preference not to drive at night. This condition has not been re-evaluated in approximately three years. Patient declining flu vaccine at this time. Patient reports he does not need any refills on any medications at this time. He denies any other symptoms complaints or concerns at this time. Social History - Family resides locally, and the patient's children and grandchildren were born in the area. - Reports infrequent alcohol consumption, primarily in the summer, approximately 6-12 units weekly. - No current exercise routine is reported. - Driving is self-restricted, particularly at night due to visual difficulties. - Receives assistance with daily activities such as bathing. - No recent eye examination in the last two to three years. Review of Systems - Respiratory: Denies dyspnea or recent chest pain. - Gastrointestinal: Denies changes in bowel habits or rectal bleeding. - Genitourinary: Reports increased urination pattern when cold; denies hematuria or foul odor. - Ophthalmologic: Reports difficulty with vision at night. - Musculoskeletal: Reports body aches, more noticeable in cold weather. Physical Exam Appearance: Alert. Oriented X3. No acute distress. Head: Normal external exam. Normocephalic. Atraumatic. No Beach signs noted. No raccoon eyes noted Eyes: Pupils are equal, round, and reactive to light. Extraocular movements intact. Conjunctiva and sclera normal. Eyelids normal. Ears: External auditory canal normal. Tympanic membranes normal. Throat: Pharynx normal. Uvula midline. Moist mucous membranes. No trismus noted. No drooling noted. No muffled voice noted. Neck: Normal inspection. Neck supple. Full range of motion. No adenopathy. Thyroid Normal. No meningeal signs. No neck mass noted. Cardiovascular: Normal heart rate and rhythm. Heart sound normal. No murmurs noted. Pulses normal throughout. Respiratory: No respiratory distress. Painless inspiration. Breath sounds normal. No wheezes/rales/rhonchi noted. Chest nontender. No accessory muscle usage noted or decreased air movement noted. Abdomen: Soft and nontender. Bowel sounds normal in all 4 quadrants. No distention noted. No organomegaly noted. No visible injury noted. Back: No costovertebral angle tenderness. Full range of motion noted. Skin: Skin warm and dry. Normal skin color. Normal skin turgor. No rashes/lesions/lacerations noted. Extremities: No lower extremity edema. Extremities exhibit normal range of motion. Extremities nontender. Neuro: Oriented X 3. No motor deficit. No sensory deficit. Reflexes normal. Results - Labs: Chronic anemia noted, elevated IgA levels. - Imaging: PET scan suggests potential cancer progression. Plan - Continue current management of diabetes mellitus and essential hypertension. - Discuss potential shift from chemotherapy through port to oral chemotherapy for cancer management. - Schedule an ophthalmologic assessment given reported visual difficulties and refraining from driving at night. Follow up in 3 months. Patient was informed and verbally consented to the use of an ambient scribe for clinic note documentation during this visit. Discussion Notes I discussed with the patient the management of his chronic conditions, especially the current status of his diabetes, hypertension, and cancer. We noted the elevated IgA levels and the possibility of cancer progression indicated by the PET scan. The patient acknowledged beginning chemotherapy, with a potential transition to oral chemotherapy being considered. We conversed about his chronic anemia and visual difficulties, particularly his reluctance to drive at night, and the need for a comprehensive ophthalmologic evaluation. The option of continuing and possibly modifying current routines and treatments was outlined. Follow-up was agreed upon at the next quarterly schedule. Patient Instructions - Continue taking prescribed medications for diabetes and hypertension. - Attend all oncological appointments and consider treatment options discussed. - Schedule an appointment for an eye examination to assess current visual challenges. - Monitor for any new or worsening symptoms such as increased swelling or unusual bleeding. - Maintain adequate hydration and a balanced diet. - Limit alcohol intake and consider a summer reduction plan.
[2024-02-19 13:18] VITALS: BP 122/80; PULSE 65; O2SAT 97; BMI 25.9
== END 2024-02-19 13:54 | disposition home or self-care (01) ==
PROVIDERS: PCP Internal Medicine; Visit Provider Internal Medicine
DX: Z13.9 Encounter for screening, unspecified (principal)

== ENCOUNTER → 2024-02-19 13:15 | Outpatient (BNVA) | payer OTHER, SELFPAY | PROVIDERS: PCP Internal Medicine; Visit Provider Internal Medicine | DX: Z00.00 Encounter for general adult medical examination without abnormal findings (principal); E11.59 Type 2 diabetes mellitus with other circulatory complications; E78.5 Hyperlipidemia, unspecified; I10 Essential (primary) hypertension; C20 Malignant neoplasm of rectum; C78.7 Secondary malignant neoplasm of liver and intrahepatic bile duct; F10.20 Alcohol dependence, uncomplicated | CPT/HCPCS: 83036; 96127; 99397 ==

== ENCOUNTER 2024-04-30 13:58 | Outpatient (AMB) | payer OTHER, SELFPAY ==
--- NOTE | 2024-04-30 14:24 | A.OFFPC_ITS ---
Vital Signs 04/30/24 14:25 Height 5 ft 6 in Weight 154 lb BMI 24.9 BP 120/72 Blood Pressure Location Lt brachial Position Sitting Pulse 60 Pulse Source Pulse Oximeter Temp 97.1 F Temp Source Temporal Artery Scan Pulse Oximetry (%) 95 Oxygen Delivery Method Room Air Intake Visit Reasons: 2mth f/u Intake Note: Patient is here to follow up on DM, HTN, HLD. Plant Operations Coordinator Required: Yes Plant Operations Coordinator Language: Ux Engineer Name: Tal (son) Information Interpreted: non-clinical & clinical (pt decline rn care transition service prefer son to translate.) Manager Investment Banking: Present Accompanied by: Son Allergies adhesive tape Allergy (Severe, Verified 04/30/24 15:06) Rash from medical tape chlorhexidine [CHLORHEXIDINE] Allergy (Intermediate, Verified 04/30/24 15:06) RASH,HIVES latex Allergy (Verified 04/30/24 15:06) Unknown Medication List - Last Reconciled 04/30/24 by Paul Romero MD albuterol sulfate 90 mcg/actuation 1 inh inhalation QID PRN aspirin 81 mg PO DAILY atorvastatin 80 mg PO BEDTIME blood sugar diagnostic ([employer] Ultra Test strips) As directed blood-glucose meter ([employer] Ultra2 Meter kit) As directed diphenhydramine HCl (Banophen) 25 mg PO DAILY PRN folic acid 1 mg PO DAILY food supplemt, lactose-reduced (Ensure Complete) 1 ea PO DAILY insulin glargine (Lantus Solostar U-100 Insulin) 14 units (0.14 mL) subcut QPM lancets (HiFiKiddoTouch Delica Lancets) As directed lisinopril 20 mg PO DAILY metoprolol succinate ER 50 mg PO DAILY multivitamin 1 tab PO DAILY oxycodone 5 mg PO BID PRN pen needle, diabetic (BD Ultra-Fine Short Pen Needle) four times a day pyridoxine (vitamin B6) 50 mg PO DAILY sacubitril-valsartan 24-26 mg (Entresto) 1 tab PO BID 90 days temazepam 15 mg PO BEDTIME 30 days thiamine HCl (vitamin B1) 100 mg PO BID ticagrelor (Brilinta) 90 mg PO Q12H 90 days tramadol 50 mg PO BEDTIME PRN Tobacco use date assessed: 04/30/24 Fall risk assessment: 1 Fall in past year Last assessed Fall Risk: 04/30/24 Dental Screening Dental Screen Date: 04/30/24 Did you have a dental visit in the last 12 months?: No Did you have a dental problem in the last 6 months where you did not have access to dental care?: No Was dental information given to patient?: No [facility] Medical History Alcohol dependence Hyperlipidemia Constipation Alcohol abuse Insomnia Coronary atherosclerosis Cancer Acute insomnia Acquired polyneuropathy senior care (current) use of insulin Type 2 diabetes mellitus with other circulatory complications Gastro-esophageal reflux disease without esophagitis H/O alcohol abuse Depression, major, recurrent, moderate Borderline hyperlipidemia Benign hypertension History of alcoholism History of prostate cancer Chronic back pain Skin rash History of conjunctivitis Dyslipidemia GERD (gastroesophageal reflux disease) History of CVA (cerebrovascular accident) Diabetes Hypertension Surgical History History of colon surgery H/O prostatectomy Family History Father No problems noted. Mother Mouth cancer Sister Breast cancer Social History Household Members: Children Housing: Apartment Are you a primary healthcare network pricing consultant to a significant other at home: No Do you presently have visiting nurse or other home services: Yes Alcohol intake: current Alcohol intake frequency: does not drink Alcohol type: beer Patient Tobacco Use Status: Never used Tobacco e-Cigarette/Vaping Use: Never Used Second Hand Smoke Exposure: No Advance Directives Date on File: 10/18/21 service: No Current occupational status: disabled Cognitive needs: Yes (cane) Hearing needs: No Vision needs: Yes (glasses) Questionnaire PHQ-9 Over the last 2 weeks, how often have you been bothered by any of the following problems? 1. Little interest or pleasure in doing things: not at all 2. Feeling down, depressed, or hopeless: not at all 3. Trouble falling or staying asleep, or sleeping too much: not at all 4. Feeling tired or having little energy: not at all 5. Poor appetite or overeating: not at all 6. Feeling bad about yourself - or that you are a failure or have let yourself o r your family down: not at all 7. Trouble concentrating on things, such as reading the newspaper or watching television: not at all 8. Moving or speaking so slowly that other people could have noticed. Or the opposite - being so fidgety or restless that you have been moving around a lot more than usual: not at all 9. Thoughts that you would be better off or of hurting yourself in some way: not at all Total score: 0 Depression Screening Interpretation: Negative Depression Screening Done: Yes Source: Developed by Drs. Chintan Mirza, Vilma Naylor, Kris Du and colleagues, with an educational ioana from [employer]. Thrive Questionnaire Date Thrive assessed: 04/30/24 AUDIT C Alcohol Use Questionnaire (AUDIT-C) 1. How often do you have a drink containing alcohol?: Never Total Score: 0 CAL-7 AMB Questionnaire CAL-7 Date CAL - 7 assessed: 04/30/24 Feeling nervous, anxious, or on edge: 0 = Not at all Not being able to stop or control worryin = Not at all Worrying too much about different things: 0 = Not at all Trouble relaxin = Not at all Being so restless that it is hard to sit still: 0 = Not at all Becoming easily annoyed or irritable: 0 = Not at all Feeling afraid as if something awful might happen: 0 = Not at all Total CAL-7 score (0-4 normal; 5-9 mild; 10-14 moderate; 15-21 severe): 0 Source: Developed by Drs. Chintan Mirza, Vilma Naylor, Kris Du and colleagues, with an educational ioana from [employer]. Physical exam (Primary Care) Vital Signs: Last Vital Signs Temp 97.1 F 04/30/24 14:25 Pulse 60 04/30/24 14:25 BP 120/72 04/30/24 14:25 Pulse Ox 95 04/30/24 14:25 Oxygen Delivery Method Room Air 04/30/24 14:25 BMI result Body Mass Index 24.9 Tobacco/Smoking Status: Tobacco use Status Tobacco use date assessed 04/30/24 04/30/24 14:34 Patient Tobacco Use Status Never used Tobacco 04/30/24 14:34 e-Cigarette/Vaping Use Never Used 04/30/24 14:34 PHQ-9: PHQ-9 Score PHQ-9: Total score 0 04/30/24 14:34 Depression Screening Interpretation: Negative Thrive Assessment: Date of Thrive Assessment Date Thrive assessed 04/30/24 04/30/24 14:34 Coding Level of Care Code Est Pt Level 4 (41021) Complex EM visit Add On G2211 Diagnoses 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 He is unable to tolerate the p.o. chemotherapy medications. He has an appointment to discuss the same with the oncologist next week. Plan History of Present Illness The patient is a 73-year-old male presenting with management and evaluation of cancer treatment side effects. He has a history of liver cancer, previously managed with chemotherapy. Recently, his treatment was changed to oral medication, which led to increased weakness and loss of appetite. This new medication was subsequently discontinued, resulting in some physical improvement. He continues to require cancer treatment, with a follow-up appo intment scheduled for May 04. Additionally, he is managing diabetes and hyperlipidemia, though specific parameters were not detailed. He experiences fluctuating appetite, trying to address it with nutritional supplements, particularly aiming for nocturnal intake. The patient's oncological, metabolic, and dietary needs remain primary focuses of his ongoing medical care. Social History - Engages in exercise, previously involving skating. - Uses nutritional supplements to counteract appetite loss and weight concerns. - Interacts with healthcare providers and participates in scheduled consu ltations. Review of Systems - General: Denies any current pain following the cessation of medication. - Dietary: Reports fluctuating appetite, primarily nocturnal hunger. - Endocrine: Reports diabetes management ongoing; sugar levels reported stable. - Cardiovascular: Mentions elevated cholesterol managed with diet and medications. - Respiratory: Reports previous cough managed with a prescribed pump. Physical Exam General: Appearance normal, both eyes and all related structures Nutritional Appearance: Well nourished, but patient lost appetite due to medication Orientation/consciousness: Patient oriented x3 Limitations: No limitations Head: Normal to inspection Neck: Normal visual inspection Chest: Normal palpation of entire chest wall Respiratory: Normal respiratory effort, patient had a cough and was given a pump Neurology: Patient oriented x3 Results - Labs: Recent blood work performed to evaluate cholesterol levels. Plan The patient requires close monitoring following his reaction to the recent oral cancer medication discontinuation. Plans are in place for a subsequent evaluation of his liver condition to refine his cancer management further. His diabetes management remains stable, with dietary and supplemental measures in place to counter appetite variability. Lab results indicate further assessment of cholesterol levels, allowing appropriate adjustments if necessary. Patient was informed and verbally consented to the use of an ambient scribe for clinic note documentation during this visit. Discussion Notes I discussed with the patient the recent changes in his cancer treatment and the development of weakness and appetite loss as primary concerns following medication trials. Emphasizing the need for scheduled follow-up on May 04, we outlined ongoing assessments and potential treatment adjustments. The patient was reassured regarding his stable diabetes status and the importance of maintaining consistent nutritional intake, particularly with the use of meal supplements as tolerated. Patient Instructions - Continue with current diabetes management and monitor blood sugar levels. - Consume nutritional supplements as needed, aiming for intake during times of hunger. - Attend the scheduled follow-up appointment on May 04 for further cancer treatment assessment. - Maintain regular physical activity within personal limits. - Monitor for any new or worsening symptoms and report promptly. - Continue cholesterol management as previously directed and await recent blood work results.
[2024-04-30 14:25] VITALS: BP 120/72; PULSE 60; TEMP 36.2; O2SAT 95; BMI 24.9
--- OUTSIDE RECORDS SUMMARY | 2024-04-30 16:53 | XMS_ITS | Clinical Summary ---
Author Organization [employer] Address [address] [place] [address] Care Team Providers Care Nutritional Services Director Name Role Phone Unavailable Primary Care Provider Unavailabl e Encounters Date Type Department Care Team Description 02/12/2024 Telephone [facility] [address] [place], [place] [id number] Sivakumar Gil MD New pt appt from Last 3 Months Social History Tobacco Use Types Packs/Day Years Used Date Smoking Tobacco: Never Assessed Sex and Gender Information Value Date Recorded Sex Assigned at Male 01/01/2022 10:15 AM EDT Legal Sex Male 10:15 AM EDT Gender Identity Male 01/01/2022 10:15 AM EDT Sexual Orientation Straight 01/01/2022 10 :15 AM EDT Plan of Treatment Health Maintenance Due Date Last Done Comments CT Colonography 1952 Colonoscopy 1952 Colorectal Cancer Screening 1952 Dental Prophylaxis 1952 Depression Screening 1952 FIT DNA/Cologuard 1952 FIT 1952 FOBT 1952 Lipid Panel 1952 SDOH Screening 1952 Sigmoidoscopy 1952 Alcohol/Substance Use Screening 1964 Tobacco Screening 1964 Hepatitis C Screening 1970 Pneumococcal Vaccine: 50+ Years (1 of 1 - PCV) 2002 Zoster Vaccines (1 of 2) 2002 RSV Patients and Patients Aged 60 years or older (1 - Risk 60-74 years 1-dose series) 2012 Dental Oral Exam 05/22/2022 11/21/2021 Dental X-Ray: Bitewings 11/22/2022 11/21/2021 COVID-19 Vaccine (2023-2 5 season) 2023 08/19/2020, 07/29/2020 Influenza Vaccine (#1) 2023 01/29/2023 Dental X-Ray: Full Mouth 11/22/2024 022, 02/05/2018 DTaP/Tdap/Td Vaccines (2 - T d or Tdap) 02/06/2034 02/07/2024 HIB Vaccines Aged Out No longer eligi ble based on patient's age to complete this topic HPV Vaccines Aged Out No longer eligi ble based on patient's age to complete this topic Hepatitis A Vaccines Aged Out No long er eligible based on patient's age to complete this topic Hepatitis B Vaccines Aged Out No long er eligible based on patient's age to complete this topic IPV Vaccines Aged Out No longer eligi ble based on patient's age to complete this topic Meningococcal Vaccine Aged Out No joyce estephanie eligible based on patient's age to complete this topic RSV under 20 months Aged Out No longe r eligible based on patient's age to complete this topic Rotavirus Vaccines Aged Out No longer eligible based on patient's age to complete this topic Procedures Procedure Name Priority Date/Time Associated Diagnosis Comments INTRAORAL - COMPLETE SERIES OF RADIOGRAPHIC IMAGES Routine 11/21/2021 12:00 AM EDT PERIODIC ORAL EVALUATION - ESTABLISHED PATIENT Routine 11/21/2021 12:00 AM EDT from Last 3 Months or Most Recently Relevant to Health Maintenance Insurance [facility] - [facility]
--- OUTSIDE RECORDS SUMMARY | 2024-04-30 16:53 | XMS_ITS | Encounter Summary ---
Author Organization [facility] Address [address] [place] [address] Care Team Providers Care Heel Seater Name Role Phone Unavailable Primary Care Provider Unavailabl e Encounter Details Date Type Department Care Team (Latest Contact Info) Description 11/21/2021 Abstract [facility] CONVERSIONS Dental, Provider, DDS Social History Tobacco Use Types Packs/Day Years Used Date Smoking Tobacco: Never Assessed Sex and Gender Information Value Date Recorded Sex Assigned at Male 01/01/2022 10:15 AM EDT Legal Sex Male 10:15 AM EDT Gender Identity Male 01/01/2022 10:15 AM EDT Sexual Orientation Straight 01/01/2022 10 :15 AM EDT documented as of this encounter Plan of Treatment Not on file documented as of this encounter Visit Diagnoses Not on filedocumented in this encounter
== END 2024-04-30 15:08 | disposition home or self-care (01) ==
PROVIDERS: PCP Internal Medicine; Visit Provider Internal Medicine
DX: C20 Malignant neoplasm of rectum (principal); C78.7 Secondary malignant neoplasm of liver and intrahepatic bile duct

== ENCOUNTER → 2024-04-30 13:58 | Outpatient (BNVA) | payer OTHER, SELFPAY | PROVIDERS: PCP Internal Medicine; Visit Provider Internal Medicine | DX: C20 Malignant neoplasm of rectum (principal); C78.7 Secondary malignant neoplasm of liver and intrahepatic bile duct | CPT/HCPCS: 99212 ==

== ENCOUNTER 2024-07-10 08:22 | Outpatient (REF) | payer OTHER, SELFPAY ==
--- NOTE | ~2024-07-10 | CT_ITS ---
CLINICAL HISTORY: Restaging metastatic cancer CT chest without contrast Comparison: CT/SR - CT CHEST W IV CON - 07/20/22 10:45 EDT Findings: No cardiomegaly. Severe atherosclerotic disease of the coronary arteries. Well-positioned right-sided chest port. No mediastinal adenopathy. Lungs exhibit chronic appearing changes, with mild airway thickening and endobronchial plugging within the apical segment of the right lower lobe. This is new from prior. No effusion. No pneumothorax. No suspicious pulmonary nodule identified. No destructive bone lesion within the thorax. Impression: No evidence of metastatic disease within the chest. There is new airway thickening and endobronchial plugging within the apical segment of the right lower lobe. This document has been electronically signed by: Jakob Jones MD on 07/10/2024 15:38:30
--- NOTE | ~2024-07-10 | CT_ITS ---
CLINICAL HISTORY: Restaging, metastatic cancer CT abdomen and pelvis with contrast Comparison: 07/20/2022 Findings: No consolidation or effusion. Significant interval increase in the metastatic disease within the liver, involving both lobes, the largest lesion within the right hepatic lobe, measuring up to 9 cm. On the comparison study, this lesion measured up to 2 cm. Several additional lesions are present within the right hepatic lobe. The lesion within the central liver appears to straddle the right and left hepatic lobes and measures up to 4.8 x 4.9 cm. This lesion previously measured 4.2 times 1.9 cm. The gallbladder is unremarkable. The kidneys, ureters and bladder are normal. The spleen is unremarkable. Abnormally enlarged lymph nodes suggested adjacent to the aorta on axial image 19. No adrenal lesion. The bowel anastomosis within the rectum is patent. Fecal retention throughout the colon noted. Severe atherosclerotic disease. Impression: Significant progression of hepatic metastatic disease. Mildly prominent lymph node adjacent to the aorta within the upper abdomen. This document has been electronically signed by: Jakob Jones MD on 07/10/2024 16:27:24
--- OUTSIDE RECORDS SUMMARY | 2024-07-10 08:34 | XMS_ITS | Clinical Summary ---
Author Organization [employer] Address [address] [place] [address] Care Team Providers Care Nursing Staff Development Coordinator Name Role Phone Unavailable Primary Care Provider Unavailabl e Social History Tobacco Use Types Packs/Day Years [...] Dental X-Ray: Bitewings 11/22/2022 11/21/2021 COVID-19 Vaccine (3 - 2023-2 5 season) 2023 08/19/2020, 07/29/2020 Influenza Vaccine [...] Most Recently Relevant to Health Maintenance [facility] [place] [id number] [facility]
--- OUTSIDE RECORDS SUMMARY | 2024-07-10 08:34 | XMS_ITS | Encounter Summary ---
Author Organization [employer] [facility] Address [address] [place] [address] Care Team Providers Care Pediatric Cns Name Role Phone Unavailable Primary Care Provider [...]
[2024-07-10] MEDS: iohexoL 350 MG/ML 100 ML INFUS..BTL IV (09:28)
== END 2024-07-10 08:23 | disposition home or self-care (01) ==
LOC: HO.CT 08:22
PROVIDERS: PCP Internal Medicine; Visit Provider Internal Medicine
DX: C20 Malignant neoplasm of rectum (principal); C78.7 Secondary malignant neoplasm of liver and intrahepatic bile duct
CPT/HCPCS: 71250; 74177; Q9967

== ENCOUNTER → 2024-07-10 08:28 | Outpatient (BNV) | payer OTHER, SELFPAY | PROVIDERS: PCP Internal Medicine; Visit Provider Radiology Vascular & Interventional Radiology | DX: C78.7 Secondary malignant neoplasm of liver and intrahepatic bile duct (principal) | CPT/HCPCS: 71250; 74177 ==

== ENCOUNTER 2024-08-13 15:35 | Outpatient (AMB) | payer OTHER, SELFPAY ==
--- NOTE | 2024-08-13 15:45 | A.OFFPC_ITS ---
Vital Signs 08/13/24 15:46 Height 5 ft 6 in Weight 153 lb 8 oz BMI 24.8 BP 122/72 Blood Pressure Location Lt brachial Position Sitting Pulse 68 Pulse Source Pulse Oximeter Temp 96.9 F Temp Source Temporal Artery Scan Pulse Oximetry (%) 96 Oxygen Delivery Method Room Air Intake Visit Reasons: pain on RT side of ABD Intake Note: Patient is here to follow up on Pain of right side abdomen. Dance Director Required: No Auditing Control Clerk: Not Required per policy Accompanied by: Self / Same As Patient Allergies adhesive tape Allergy (Severe, Verified 08/14/24 07:18) Rash from medical tape chlorhexidine [CHLORHEXIDINE] Allergy (Intermediate, Verified 08/14/24 07:18) RASH,HIVES latex Allergy (Verified 08/14/24 07:18) Unknown Medication List - Last Reconciled 08/14/24 by Paul Romero MD albuterol sulfate 90 mcg/actuation 1 inh inhalation QID PRN aspirin 81 mg PO DAILY atorvastatin mg atorvastatin 80 mg PO BEDTIME blood sugar diagnostic ([employer] Ultra Test strips) As directed blood-glucose meter As directed diphenhydramine HCl (Banophen) 25 mg PO DAILY PRN folic acid 1 mg PO DAILY food supplemt, lactose-reduced (Ensure Complete) 1 ea PO DAILY insulin glargine (Lantus Solostar U-100 Insulin) 14 units (0.14 mL) subcut QPM lancets As directed lisinopril 20 mg PO DAILY metoprolol succinate ER 50 mg PO DAILY multivitamin 1 tab PO DAILY oxycodone 5 mg PO Q4H PRN pen needle, diabetic four times a day pyridoxine (vitamin B6) 50 mg PO DAILY regorafenib 80 mg (2 x 40 mg) PO DAILY sacubitril-valsartan 24-26 mg (Entresto) tabs sacubitril-valsartan 24-26 mg (Entresto) 1 tab PO BID 90 days temazepam 15 mg PO BEDTIME 30 days thiamine HCl (vitamin B1) 100 mg PO BID ticagrelor (Brilinta) 90 mg PO Q12H 90 days tramadol 50 mg PO BEDTIME PRN Tobacco use date assessed: 08/13/24 Fall risk assessment: No Falls in past year Last assessed Fall Risk: 08/13/24 Dental Screening Dental Screen Date: 04/30/24 HPI pain on RT side of ABD HPI Details 74 yr old male presents for a sick visit . Now complaining of increased pain in the right side of the abdomen, sleep on the right side worsens the pain. Symptoms present for a few weeks. History of rectal cancer with advanced spread of disease. Reports no symptoms of nausea or vomiting. 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 Mother Mouth cancer Sister Breast cancer Social History Household Members: Children Housing: Apartment Are you a primary home health care coordinator to a significant other at home: No Do you presently have visiting nurse or other home services: Yes Alcohol intake: current Alcohol intake frequency: does not drink Alcohol type: beer Patient Tobacco Use Status: Never used Tobacco e-Cigarette/Vaping Use: Never Used Second Hand Smoke Exposure: No Advance Directives Date on File: 10/18/21 service: No Current occupational status: disabled Cognitive needs: Yes (cane) Hearing needs: No Vision needs: Yes (glasses) Questionnaire Thrive Questionnaire Date Thrive assessed: 04/30/24 CAL-7 AMB Questionnaire CAL-7 Date CAL - 7 assessed: 04/30/24 Source: Developed by Drs. Chintan Mirza, Vilma Naylor, Kris Du and colleagues, with an educational ioana from [employer]. Physical exam (Primary Care) Vital Signs: Last Vital Signs Temp 96.9 F 08/13/24 15:46 Pulse 68 08/13/24 15:46 BP 122/72 08/13/24 15:46 Pulse Ox 96 08/13/24 15:46 Oxygen Delivery Method Room Air 08/13/24 15:46 Next steps: BP in range BMI result Body Mass Index 24.8 Tobacco/Smoking Status: Tobacco use Status Tobacco use date assessed 08/13/24 08/13/24 15:50 Patient Tobacco Use Status Never used Tobacco 08/13/24 15:50 e-Cigarette/Vaping Use Never Used 08/13/24 15:50 Thrive Assessment: Date of Thrive Assessment Date Thrive assessed 04/30/24 08/13/24 15:50 Advance Care Planning discussion: Exists, not on file Date of discussion: 08/14/24 Who was present: Patient Forms completed: Health Care Proxy and MOLST Time spent: 1-15 minutes, not on file Const General: cooperative and healthy appearing Nutritional Appearance: well nourished Orientation/consciousness: patient oriented x3 Limitations: no limitations HENMT Head: Yes normal to inspection Eyes General: appearance normal, both eyes and all related structures Neck Neck: Yes normal visual inspection Chest Chest palpation & inspection: normal palpation of entire chest wall Resp Effort & Inspection: normal respiratory effort Other: Abdomen: Hepatomegaly, tenderness on palpation in the Right Upper Quadrant Neuro General: patient oriented x3 Coding Level of Care Code Est Pt Level 4 (94597) Complex EM visit Add On G2211 Diagnoses Rectal adenocarcinoma metastatic to liver C20; C78.7 Additional Codes Vital Signs *Quality* - Advance Care Planning discussion: Exists, not on file ([id number]) Vital Signs *Quality* - Time spent: 1-15 minutes, not on file ([id number]) Assessment & Plan Assessment & Plan (1) Rectal adenocarcinoma metastatic to liver: Code(s): C20 - Malignant neoplasm of rectum; C78.7 - Secondary malignant neoplasm of liver and intrahepatic bile duct Category: Medical Plan: Symptoms of pain are due to the spread of the malignancy. Advised to increase the frequency of use of tramadol and oxycodone. Care discussed with oncologist who agreed with the plan of increasing the pain medication dosages and frequency. 15 minutes spent in conversation. Patient will be seen sooner at their office. Medications: Refilled pen needle, diabetic four times a day 100 ea 1RF
[2024-08-13 15:46] VITALS: BP 122/72; PULSE 68; TEMP 36.1; O2SAT 96; BMI 24.8
--- OUTSIDE RECORDS SUMMARY | 2024-08-13 18:02 | XMS_ITS | Encounter Summary ---
Author Organization [employer] [facility] Address [address] [place] [address] Care Team Providers Care Keypunch Operator Name Role Phone Unavailable Primary Care Provider [...]
== END 2024-08-13 16:53 | disposition home or self-care (01) ==
LOC: HO.HMCH 15:35
PROVIDERS: PCP Internal Medicine; Visit Provider Internal Medicine
DX: C20 Malignant neoplasm of rectum (principal); C78.7 Secondary malignant neoplasm of liver and intrahepatic bile duct; Z00.00 Encounter for general adult medical examination without abnormal findings

== ENCOUNTER → 2024-08-13 15:35 | Outpatient (BNVA) | payer OTHER, SELFPAY | PROVIDERS: PCP Internal Medicine; Visit Provider Internal Medicine | DX: C20 Malignant neoplasm of rectum (principal); C78.7 Secondary malignant neoplasm of liver and intrahepatic bile duct; R10.9 Unspecified abdominal pain | CPT/HCPCS: 99212 ==

== ENCOUNTER 2024-08-17 07:17 | Outpatient (REF) | payer OTHER, SELFPAY ==
--- NOTE | ~2024-08-17 | US_ITS ---
EXAMINATION: US ABDOMEN LIMITED CLINICAL INFORMATION: Rectal cancer with liver metastasis. Right upper quadrant abdominal pain.. COMPARISON: Correlated to CT dated July 10, 2024. TECHNIQUE: Real-time ultrasound of the right upper quadrant abdomen using grayscale and color Doppler technique. FINDINGS: PANCREAS: No peripancreatic fluid collections. LIVER: Liver measures 13 cm by dental technologist. Heterogeneous echotexture. A nodular surface. Multifocal, irregular shaped different sizes intermediate echotexture lesions throughout the parenchyma, the largest measures 9.4 cm. Main portal vein is patent with normal hepatopedal flow direction. No intrahepatic biliary ductal dilatation. GALLBLADDER: No pericholecystic fluid collection or gallbladder wall thickening. Gallbladder is fluid-filled. COMMON BILE DUCT: 3 mm. RIGHT KIDNEY: 11 cm. Normal echotexture. Normal renal cortical thickness. No hydronephrosis. No gross solid or cystic lesion detected by the technologist.. FREE FLUID: None. US/US abdomen limited IMPRESSION: Multifocal, different sizes hepatic lesions, please refer to the recent CT. No cholelithiasis. No ascites. No hydronephrosis, right kidney. Electronically signed by: Leandro Dorsey MD 08/17/2024 08:00 AM EDT
--- OUTSIDE RECORDS SUMMARY | 2024-08-17 07:19 | XMS_ITS | Encounter Summary ---
Author Organization [employer] [facility] Address [address] [place] [address] Care Team Providers Care Dice Spotter Name Role Phone Unavailable Primary Care Provider [...]
== END 2024-08-17 07:18 | disposition home or self-care (01) ==
LOC: HO.US 07:17
PROVIDERS: PCP Internal Medicine; Visit Provider Nurse Practitioner Family
DX: C20 Malignant neoplasm of rectum (principal); C78.7 Secondary malignant neoplasm of liver and intrahepatic bile duct
CPT/HCPCS: 76705

== ENCOUNTER → 2024-08-17 07:18 | Outpatient (BNV) | payer OTHER, SELFPAY | PROVIDERS: PCP Internal Medicine; Visit Provider Radiology Diagnostic Radiology | DX: K76.89 Other specified diseases of liver (principal) | CPT/HCPCS: 76705 ==

== ENCOUNTER 2025-02-10 14:34 | Outpatient (AMB) | payer OTHER, SELFPAY ==
--- NOTE | 2025-02-10 14:52 | MHC.PC.OV ---
Vital Signs 02/10/25 14:54 Height 5 ft 6 in Weight 139 lb 6 oz BMI 22.5 BP 102/60 Blood Pressure Location Lt brachial Position Sitting Pulse 74 Pulse Source Pulse Oximeter Temp 97.1 F Temp Source Temporal Artery Scan Pulse Oximetry (%) 98 Oxygen Delivery Method Room Air Intake Visit Reasons: follow up- needs A1C done Intake Note: Patient is here to follow up on DM, HTN, HLD. 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 Alcohol dependence Hyperlipidemia Constipation Alcohol abuse Insomnia Coronary atherosclerosis Cancer Acute insomnia Acquired polyneuropathy 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 Mother Mouth cancer Sister Breast cancer Social History Household Members: Children Housing: Apartment Are you a primary family day care worker to a significant other at home: No Do you presently have visiting nurse or other home services: Yes Alcohol intake: current Alcohol intake frequency: does not drink Alcohol type: beer Patient Tobacco Use Status: Never used Tobacco e-Cigarette/Vaping Use: Never Used Second Hand Smoke Exposure: No Advance Directives Date on File: 08/17/22 service: No Current occupational status: disabled Cognitive needs: Yes (cane) Hearing needs: No Vision needs: Yes (glasses) Questionnaire PHQ-9 Over the last 2 weeks, how often have you been bothered by any of the following problems? 1. Little interest or pleasure in doing things: not at all 2. Feeling down, depressed, or hopeless: not at all 3. Trouble falling or staying asleep, or sleeping too much: not at all 4. Feeling tired or having little energy: not at all 5. Poor appetite or overeating: not at all 6. Feeling bad about yourself - or that you are a failure or have let yourself or your family down: not at all 7. Trouble concentrating on things, such as reading the newspaper or watching television: not at all 8. Moving or speaking so slowly that other people could have noticed. Or the opposite - being so fidgety or restless that you have been moving around a lot more than usual: not at all 9. Thoughts that you would be better off or of hurting yourself in some way: not at all Total score: 0 Depression Screening Interpretation: Negative Depression Screening Done: Yes Source: Developed by Drs. Chintan Mirza, Vilma Naylor, Kris Du and colleagues, with an educational ioana from [employer]. Thrive Questionnaire Date Thrive assessed: 04/30/24 I am a: Patient What is your living situation today?: I have a steady place to live Within the past 12 months, did the food you bought not last and you didn't have the money to get more?: Never true Within the past 12 months, did you worry whether your food would run out before you got money to buy more?: Never true Do you have trouble paying for medicines?: No Do you have trouble getting transportation to medical appointments?: No Do you have trouble paying your heating and electricity bill?: No Do you have trouble taking care of your child, family member or friend?: No Do you have trouble with day-to-day activities such as bathing, preparing meals, shopping, managing finances, etc.?: No Are you currently unemployed and looking for a job?: No Are you interested in more education?: No Please select the resources that you would like help with: None Currently or been in a relationship where the following occur: No concerns reported THRIVE Score: 0 AUDIT C Alcohol Use Questionnaire (AUDIT-C) 1. How often do you have a drink containing alcohol?: Never Total Score: 0 CAL-7 AMB Questionnaire CAL-7 Date CAL - 7 assessed: 04/30/24 Feeling nervous, anxious, or on edge: 0 = Not at all Not being able to stop or control worryin = Not at all Worrying too much about different things: 0 = Not at all Trouble relaxin = Not at all Being so restless that it is hard to sit still: 0 = Not at all Becoming easily annoyed or irritable: 0 = Not at all Feeling afraid as if something awful might happen: 0 = Not at all Total CAL-7 score (0-4 normal; 5-9 mild; 10-14 moderate; 15-21 severe): 0 Source: Developed by Drs. Chintan Mirza, Vilma Naylor, rKis Du and colleagues, with an educational ioana from [employer]. Physical exam (Primary Care) Vital Signs: Last Vital Signs Temp 97.1 F 02/10/25 14:54 Pulse 74 02/10/25 14:54 BP 102/60 02/10/25 14:54 Pulse Ox 98 02/10/25 14:54 Oxygen Delivery Method Room Air 02/10/25 14:54 BMI result Body Mass Index 22.5 Tobacco/Smoking Status: Tobacco use Status Tobacco use date assessed 02/10/25 02/10/25 15:02 Patient Tobacco Use Status Never used Tobacco 02/10/25 15:02 e-Cigarette/Vaping Use Never Used 02/10/25 15:02 PHQ-9: PHQ-9 Score PHQ-9: Total score 0 02/10/25 15:02 Depression Screening Interpretation: Negative Thrive Assessment: Date of Thrive Assessment Date Thrive assessed 04/30/24 02/10/25 15:02 Currently or been in a relationship where the following occur: No concerns reported Results AMB Hemoglobin A1c AMB Hemoglobin A1c 6.0 % Last Edit by ROSA Arceo on 02/10/25 15:12 Results Reviewed Results Reviewed: Laboratory Last Values Hgb A1c (Clinic) 6.0 % (4.0-6.0) 02/10/25 14:52 Coding Level of Care Code Est Pt Level 4 (16990) Add On Problem Visit Only Diagnoses Type 2 diabetes mellitus with other circulatory complications E11.59 Assessment & Plan Assessment & Plan (1) Type 2 diabetes mellitus with other circulatory complications: Code(s): E11.59 - Type 2 diabetes mellitus with other circulatory complications Category: Medical Plan: History of Present Illness - The patient is a 74 year old male presenting for follow-up and medication refills. - The patient reports having a rash on his inner thigh. - He has a history of insomnia and reports that he cannot sleep at night. - He notes that his Tramadol prescription, which he takes for pain, has run out. - He also uses Temazepam for sleep, but reports it is only effective sometimes. - The patient reports that he sometimes feels dizzy, has a poor appetite, and sometimes eats too much at night. - He has a history of cancer and is scheduled for a follow-up CT scan next week. - For his diabetes, the patient is currently taking Lantus 14 units at nighttime and requests a refill. Social History - Nutrition: The patient reports sometimes having no appetite, while other times eating too much at night. Review of Systems - Constitutional: Reports occasional dizziness and sometimes feeling unwell. - Neurological: Reports occasional dizziness. - Denies feeling okay all the time. - Integumentary: Reports a rash on his inner thigh. - Sleep: Reports inability to sleep at night. - Gastrointestinal: Reports sometimes having no appetite and at other times eating too much at night. Physical Exam General: Appearance normal, both eyes and all related structures Nutritional Appearance: Well nourished Orientation/consciousness: Patient oriented x3 Limitations: No limitations Head: Normal to inspection Neck: Normal visual inspection Chest: Normal palpation of entire chest wall Respiratory: Normal respiratory effort Neurology: Patient oriented x3, but reports dizziness sometimes Results - Labs: HgbA1c is 6.0%. - Tests and Diagnostics: [id number] blood sugar is good. Plan - A refill for Lantus was sent to his [facility] in [place]. - A cream will be prescribed for the rash on his thigh. - The patient was reminded that he has a prescription for Temazepam for sleep, which was sent on 01/22. - For chronic pain, the patient mentioned his Tramadol is finished and stated he needs to speak with his other doctor regarding oxycodone. - The patient will follow up in three months. Discussion Notes I have sent a refill for the patient's Lantus to his pharmacy. I also prescribed a cream for the rash on his thigh and instructed him to apply it to the affected area. Regarding his insomnia, I reminded the patient that he has a current prescription for Temazepam, which is a sleep medication. I noted his blood sugar and A1c are at goal. The patient is scheduled to follow up in three months. Patient Instructions - Continue taking Lantus 14 units at nighttime. - A refill for your [facility]us has [facility] in [place] and should be ready tomorrow. - Apply the prescribed cream to the rash on your thigh. - For difficulty sleeping, you have a prescription for Temazepam at home. Please check for it. - Your blood sugar levels are good, and your A1c is 6.0%. - Please follow up in the clinic in three months. Orders: Orders AMB Hemoglobin A1c Today E11.59 - Type 2 diabetes mellitus with other circulatory complications Medications: New hydrocortisone 2.5% 1 appl topical BID PRN 20 grams 0RF skin irritation Refilled insulin glargine (Lantus Solostar U-100 Insulin) 14 units (0.14 mL) subcut QPM 15 mL 1RF pen needle, diabetic four times a day 100 ea 1RF
[2025-02-10 14:54] VITALS: BP 102/60; PULSE 74; TEMP 36.2; O2SAT 98; BMI 22.5
== END 2025-02-10 15:19 | disposition home or self-care (01) ==
LOC: HO.HMCH 14:35
PROVIDERS: PCP Internal Medicine; Visit Provider Internal Medicine
DX: E11.59 Type 2 diabetes mellitus with other circulatory complications (principal)

== ENCOUNTER → 2025-02-10 14:34 | Outpatient (BNVA) | payer OTHER, SELFPAY | PROVIDERS: PCP Internal Medicine; Visit Provider Internal Medicine | DX: E11.59 Type 2 diabetes mellitus with other circulatory complications (principal) | CPT/HCPCS: 83036; 99212 ==

== ENCOUNTER 2025-02-17 07:40 | Outpatient (REF) | payer OTHER, SELFPAY ==
--- NOTE | ~2025-02-17 | CT_ITS ---
EXAMINATION: CT ABDOMEN AND PELVIS WITH CONTRAST CLINICAL INFORMATION: Adenocarcinoma of rectum with liver Mets. Restage COMPARISON: None available. TECHNIQUE: Multidetector volumetric images were obtained from the superior aspect of the liver through the pubic symphysis following administration 85 mL of Omnipaque 350 intravenous contrast. Sagittal and coronal reformatted images were obtained on the technologist's workstation. Oral contrast: Yes This CT examination was performed using dose optimization techniques as appropriate, variously including the following: *Automated exposure control *Adjustment of mA and/or kV according to patient size (this includes techniques or standardized protocols for targeted exams where dose is matched to indication/reason for exam; i.e. extremities or head) *Use of iterative reconstruction technique FINDINGS: LUNG BASES: The visualized lung bases are unremarkable. LIVER, GALLBLADDER, AND BILIARY TREE: The lesion is measured on axial CT #3 Image 9: Segment VIII+Aristides: 6.0 x 7.0 cm, previously 4.8 x 4.9 cm (AP by transverse) Image 12: Segment VIII: 4.5 x 5 x 1 cm previously 3.8 x 3.9 cm (AP by transverse) Image 22: Segment V, , and VIII: 8.9 x 7.5 cm, previously 7.4 x 7.9 cm (AP by transverse) No new lesions are present. The gallbladder is unremarkable with no evidence of radiopaque gallstones, gallbladder wall thickening, or obvious pericholecystic inflammatory changes. PANCREAS: Unremarkable. SPLEEN: Unremarkable. ADRENAL GLANDS: There is a new nodule in the right adrenal gland measuring 1.2 x 1.6 cm and 69 Hounsfield units concerning for metastatic disease. Left adrenal gland is unremarkable. KIDNEYS AND URETERS: The kidneys are normal in size, shape, and attenuation. No hydronephrosis, hydroureter, or calculi seen. No perinephric stranding. BLADDER: There is mild bladder wall thickening. GASTROINTESTINAL TRACT: There is an end to end anastomosis in the rectum. A few pseudodiverticula are present in the descending colon. ABDOMINAL WALL: Small indirect left inguinal hernia is similar to the prior. LYMPH NODES: Normal. VASCULAR: There is a focal 60% stenosis involving the origin of the right common iliac artery. Multifocal hard and soft plaque is present in the vasculature. PELVIC VISCERA: Unremarkable. OSSEOUS STRUCTURES: There are no lytic or blastic lesions. CT/CT abdomen pelvis w IV con IMPRESSION: Interval enlargement of hepatic metastases and new right adrenal gland metastasis. There is focal 60% stenosis at the origin of the right common iliac artery. Fleischner guidelines were followed. Electronically signed by: Ananda Asencio MD 02/17/2025 10:50 AM [facility]
--- OUTSIDE RECORDS SUMMARY | 2025-02-17 07:42 | XMS_ITS | Encounter Summary ---
Author Organization [employer] [facility] Address [address] [place] [address] Care Team Providers Care Ict Analyst Name Role Phone Unavailable Primary Care Provider [...]
--- OUTSIDE RECORDS SUMMARY | 2025-02-17 07:42 | XMS_ITS | Clinical Summary ---
Author Organization [employer] Address [address] [place] [address] Care Team Providers Care Claims Service Representative Name Role Phone Unavailable Primary Care Provider [...] 2002 Zoster Vaccines (1 of 2) 2002 Dental Oral Exam 05/22/2022 11/21/2021 Dental X-Ray: Bitewings 11/22/2022 11/21/2021 COVID-19 Vaccine (3 - 2024-2 6 season) 2024 08/19/2020, 07/29/2020 Influenza Vaccine (#1) 2024 01/29/2023 Dental X-Ray: Full Mouth 11/22/2024 022, 02/05/2018 RSV Patients and Patients Aged 60 years or older (1 - 1-dose 75+ series) 05/20/2027 DTaP/Tdap/Td Vaccines (2 - T d or [...] patient's age to complete this topic Meningococcal B Vaccine Aged Out No l onger eligible based on patient's age to complete [...] Most Recently Relevant to Health Maintenance Insurance [facility] INTERMEDIATE OPTIONS (O D-SNP) [place] [id number] DENTAL [facility]
[2025-02-17] MEDS: iohexoL 350 MG/ML 100 ML INFUS..BTL IV (10:28)
[2025-02-17] MEDS: Barium Sulfate Oral (Berry) 450 ML ORAL.SUSP 900 ML PO (10:29)
[2025-02-17 12:36] LABS: Creatinine POC 0.8 mg/dL (0.5-1.4); GFR POC > 60
== END 2025-02-17 07:41 | disposition home or self-care (01) ==
LOC: HO.CT 07:40
PROVIDERS: PCP Internal Medicine; Visit Provider Internal Medicine Medical Oncology
DX: C20 Malignant neoplasm of rectum (principal); C78.7 Secondary malignant neoplasm of liver and intrahepatic bile duct
CPT/HCPCS: 74177; 82565; Q9967

== ENCOUNTER → 2025-02-17 07:42 | Outpatient (BNV) | payer OTHER, SELFPAY | PROVIDERS: PCP Internal Medicine; Visit Provider Radiology Diagnostic Radiology | DX: C20 Malignant neoplasm of rectum (principal); C78.7 Secondary malignant neoplasm of liver and intrahepatic bile duct; C79.71 Secondary malignant neoplasm of right adrenal gland | CPT/HCPCS: 74177 ==